=== PATIENT | female | born 2005 | race Caucasian/White ===

== ENCOUNTER 2024-07-03 13:41 | Outpatient (CLI) | payer BC, SELFPAY ==
[2024-07-03 14:49] LABS: HCG,Quantitative 390 mIU/ml (0-5.42)
[2024-07-04 12:21] LABS: Progesterone 11.8 ng/mL (.)
== END 2024-07-03 23:59 | disposition home or self-care (01) ==
LOC: LAB 13:48
PROVIDERS: PCP Nurse Practitioner Family; Visit Provider Obstetrics & Gynecology
DX: Z32.01 Encounter for pregnancy test, result positive (principal)
CPT/HCPCS: 36415; 84144; 84702

== ENCOUNTER 2024-08-01 11:11 | Outpatient (CLI) | payer BC, SELFPAY ==
[2024-08-01 11:31] LABS: Basophils % 0.4 % (0.1-2.0); Eosinophils # 0.1 K/mm3 (0.0-0.4); Eosinophils % 0.6 % (0.1-12.0); Hematocrit 36.9 % (37.0-47.0); Hemoglobin 12.5 g/dL (12.2-16.2); Lymphocytes # 1.2 K/mm3 (0.7-4.5); Lymphocytes % 13.4 % (10-50); Mean Corpuscular HGB Conc 33.9 g/dL (31.8-35.4); Mean Corpuscular Hemoglobin 29.8 pg (27.0-31.2); Mean Corpuscular Volume 88.1 fl (81-99); Mean Platelet Volume 9.9 fl (7.4-10.4); Monocytes # 0.5 K/mm3 (0.1-1.0); Monocytes % 5.7 % (1.7-9.3); Neutrophils # 7.2 K/mm3 (1.8-7.8); Neutrophils % 79.8 % (37.0-80.0); Platelet Count 336 K/mm3 (142-424); Red Blood Count 4.19 M/mm3 (4.20-5.40); Red Cell Distribution Width 13.2 % (11.5-17.5)
[2024-08-01 12:41] LABS: HIV Combo NEGATIVE (Negative)
[2024-08-01 12:49] LABS: Hepatitis C Ab Qual. W/ RFX NEGATIVE (Negative)
[2024-08-02 06:34] LABS: Hepatitis B Surface Antigen Negative (Negative); Rubella Antibodies, IgG 1.82 index (Immune >0.99)
[2024-08-02 09:06] LABS: RPR W/RFX Titers Nonreactive (Nonreactive)
[2024-08-03 06:10] LABS: Neisseria gonorrhoeae, NAA Negative (Negative)
== END 2024-08-01 23:59 | disposition home or self-care (01) ==
LOC: LAB 11:11
PROVIDERS: PCP Nurse Practitioner Family; Visit Provider Obstetrics & Gynecology
DX: Z34.01 Encounter for supervision of normal first pregnancy, first trimester (principal); Z3A.08 8 weeks gestation of pregnancy
CPT/HCPCS: 36415; 85025; 86592; 86762; 86803; 86850; 87340; 87389; 87491; 87591

== ENCOUNTER 2024-08-15 12:43 | Outpatient (CLI) | payer BC, SELFPAY ==
--- NOTE | 2024-08-15 13:00 | US_ITS ---
PROCEDURE: US OB <= 14 WEEKS FETUS CLINICAL INDICATION: Confirm Dates and Viability COMPARISON: No exams were available for comparison FINDINGS: Transvaginal sonographic images of the pelvis were obtained. From her last menstrual period she is 10weeks 3days. An intrauterine gestational sac is present with a pole with a crown-rump length of 3.46cm This correlates to a gestational age of 10weeks 3days. heart tones are present with an FHR of 161bpm. Yolk sac is noted. The yolk sac measures 5.4mm. The right ovary is seen and appears normal. There appears to be a small corpus luteum in the right ovary. The left ovary is seen and appears normal. There is no fluid in the cul-de-sac. IMPRESSION: 1. Viable embryo within the uterine cavity. heart rate activity is seen. 2. The embryo measures 10 weeks and 3 days and this correlates with her last menstrual period. Her NELLI will remain 03/10/2025. 3. Both ovaries are seen and appear normal. There is a corpus luteum in the right ovary. 4. No fluid in the cul-de-sac. Dictated by: Paul Gao MD 08/15/2024 14:43 Paul Gao MD in OV 08/15/2024 14:43
== END 2024-08-15 23:59 | disposition home or self-care (01) ==
LOC: RAD 12:43
PROVIDERS: PCP Nurse Practitioner Family; Visit Provider Obstetrics & Gynecology
DX: Z36.87 Encounter for antenatal screening for uncertain dates (principal); O36.80X0 Pregnancy with inconclusive fetal viability, not applicable or unspecified; Z3A.10 10 weeks gestation of pregnancy
CPT/HCPCS: 76801

== ENCOUNTER 2024-10-24 14:01 | Outpatient (CLI) | payer BC, SELFPAY ==
--- OUTSIDE RECORDS SUMMARY | 2024-10-24 14:09 | XMS_ITS | Data Portability ---
Author Organization [facility] ClinREENA dobbs FLOR[place] CLOSED Address [address] [facility] [address] [place] [address] Care Team Providers Care Public Transit Bus Driver Name Role Phone SHAHZAD STACY Primary Care Provider Assessment No assessment recorded. Plan of Treatment Reminders Order Date Submit Date Provider Last Modified By Organization Details Last Modified Time Details Appointments ANNUAL STAPLE FIBER WASHER 2024 02:15P M EMEKA GARCIA DO Not available Not available Not available Lab None recorded. Referral None recorded. Procedures None recorded. Surgeries laparosco py, diagnosti c (SURG) 2023 [email or web address] [facility] Professional Charges, [address] [facility], [facility] [address], [place], [address], 08/27/2023 09:39:09 Imaging US, transvagi nal 2023 024 [facility] Radiology Pulmonary, [address] [place], [address], 03/24/2024 15:23:49 Medication Orders Larissia 0.1 mg-20 mcg tablet 2023 024 [email or web address] [facility] [address], [address] [place], [address], 12/22/2023 09:30:58 Larissia 0.1 mg-20 mcg tablet 2023 024 [facility] [address], [address] [place], [address], 08/13/2023 15:20:18 Patient TargetsNo targets recorded. Patient Instructions Encounter Date Encounter Id Patient Instructions Last Modified By Organization Details Last Modified Time 03/24/2024 [id number] pain management sneace Not available 03/24/2024 15:29:53 Reason for Referral None Reported. Results Created Date Observation Date Name Description Value Unit Range Abnormal Flag Note LastModifiedBy Organization Detail LastModifiedTime 06/10/19 24 06/10/2023 GENER AL HEALT H PANEL glucose 84 mg/dL 74-100 normal Not Available [facility] [address] [place] [address], [address], 06/10/2023 14:04:24 06/10/19 24 06/10/2023 GENER AL HEALT H PANEL blood urea nitrogen 6 mg/dL 6-20 normal Not Available [facility] [address] [place] [address], [address], 06/10/2023 14:04:24 06/10/19 24 06/10/2023 GENER AL HEALT H PANEL creatinine 0.92 mg/dL 0.50-0 .95 normal Not Available [facility] [address] [place] [address], [address], 06/10/2023 14:04:24 06/10/19 24 06/10/2023 GENER AL HEALT H PANEL BUN/creatini ne ratio 7 (calc ) 10-20 low Not Available [facility] [address] [place] [address], [address], 06/10/2023 14:04:24 06/10/19 24 06/10/2023 GENER AL HEALT H PANEL sodium 140 mmol/ L 136-14 5 normal Not Available [facility] [address] [place] [address], [address], 06/10/2023 14:04:24 06/10/19 24 06/10/2023 GENER AL HEALT H PANEL potassium 3.9 mmol/ L 3.4-5. 0 normal Not Available [facility] [address] [place] [address], [address], 06/10/2023 14:04:24 06/10/19 24 06/10/2023 GENER AL HEALT H PANEL chloride 107 mmol/ L 98-107 normal Not Available [facility] [address] [place] [address], [address], 06/10/2023 14:04:24 06/10/19 24 06/10/2023 GENER AL HEALT H PANEL carbon dioxide 21 mmol/ L 22-31 low Not Available [facility] [address] [place] [address], [address], 06/10/2023 14:04:24 06/10/19 24 06/10/2023 GENER AL HEALT H PANEL anion gap 12 (calc ) 7-25 normal Not Available [facility] [address] [place] [address], [address], 06/10/2023 14:04:24 06/10/19 24 06/10/2023 GENER AL HEALT H PANEL calcium 9.3 mg/dL 8.6-10 .2 normal Not Available [facility] [address] [place] [address], [address], 06/10/2023 14:04:24 06/10/19 24 06/10/2023 GENER AL HEALT H PANEL total protein 8.0 g/dL 6.4-8. 3 normal Not Available [facility] [address] [place] [address], [address], 06/10/2023 14:04:24 06/10/19 24 06/10/2023 GENER AL HEALT H PANEL albumin 4.5 g/dL 3.5-5. 2 normal Not Available [facility] [address] [place] [address], [address], 06/10/2023 14:04:24 06/10/19 24 06/10/2023 GENER AL HEALT H PANEL globulin 3.5 1.5-4. 5 normal Not Available [facility] [address] [place] [address], [address], 06/10/2023 14:04:24 06/10/19 24 06/10/2023 GENER AL HEALT H PANEL albumin/glob ulin ratio 1.3 (calc ) 1.1-2. 5 normal Not Available [facility] [address] [place] [address], [address], 06/10/2023 14:04:24 06/10/19 24 06/10/2023 GENER AL HEALT H PANEL bilirubin, total 0.4 mg/dL 0.1-1. 2 normal Not Available [facility] [address] [place] [address], [address], 06/10/2023 14:04:24 06/10/19 24 06/10/2023 GENER AL HEALT H PANEL alkaline phosphatase 44 U/L 30-121 normal Not Available [facility] [address] [place] [address], [address], 06/10/2023 14:04:24 06/10/19 24 06/10/2023 GENER AL HEALT H PANEL AST 23 U/L 0-32 normal Not Available [facility] [address] [place] [address], [address], 06/10/2023 14:04:24 06/10/19 24 06/10/2023 GENER AL HEALT H PANEL ALT 15 U/L 0-33 normal Not Available [facility] [address] [place] [address], [address], 06/10/2023 14:04:24 06/10/19 24 06/10/2023 GENER AL HEALT H PANEL GFR 92 >= 60 normal NOT E New calcu latio n for GFR (CKD- EPI 2020) is formu lated witho ut race adjus tment facto rs at the recom menda tion of the Natio nal Kidne y Found ation and Ammau Almazane ty of Nephr ology . This calcu latio n has not been valid ated in pregn ant women . For pedia lorena patie nts refer to https ://shena alonso.regla garcia.o riddhi/pr princess suazo s/KDO QI/gf r_cal culat orPed Not Available [facility] [address] [place] [address], [address], 06/10/2023 14:04:24 06/10/19 24 06/10/2023 GENER AL HEALT H PANEL white blood cells 6.0 10*3/ uL 3.8-10 .8 normal Not Available [facility] [address] [place] [address], [address], 06/10/2023 14:04:24 06/10/19 24 06/10/2023 GENER AL HEALT H PANEL red blood cells 4.42 10*6/ uL 3.80-5 .20 normal Not Available [facility] [address] [place] [address], [address], 06/10/2023 14:04:24 06/10/19 24 06/10/2023 GENER AL HEALT H PANEL hemoglobin 13.7 g/dL 12.0-1 6.0 normal Not Available [facility] [address] [place] [address], [address], 06/10/2023 14:04:24 06/10/19 24 06/10/2023 GENER AL HEALT H PANEL hematocrit 39.9 % 35.0-4 7.0 normal Not Available [facility] [address] [place] [address], [address], 06/10/2023 14:04:24 06/10/19 24 06/10/2023 GENER AL HEALT H PANEL MCV 90 fL 80-100 normal Not Available [facility] [address] [place] [address], [address], 06/10/2023 14:04:24 06/10/19 24 06/10/2023 GENER AL HEALT H PANEL MCH 31 pg 26-35 normal Not Available [facility] [address] [place] [address], [address], 06/10/2023 14:04:24 06/10/19 24 06/10/2023 GENER AL HEALT H PANEL MCHC 34 g/dL 32-36 normal Not Available [facility] [address] [place] [address], [address], 06/10/2023 14:04:24 06/10/19 24 06/10/2023 GENER AL HEALT H PANEL RDW 13.2 % 11.0-1 5.0 normal Not Available [facility] [address] [place] [address], [address], 06/10/2023 14:04:24 06/10/19 24 06/10/2023 GENER AL HEALT H PANEL MPV 8.4 fL 6.2-10 .5 normal Not Available [facility] [address] [place] [address], [address], 06/10/2023 14:04:24 06/10/19 24 06/10/2023 GENER AL HEALT H PANEL platelet count 324 10*3/ uL 150-40 0 normal Not Available [facility] [address] [place] [address], [address], 06/10/2023 14:04:24 06/10/19 24 06/10/2023 GENER AL HEALT H PANEL neutrophil,a bsolute 3.7 10*3/ uL 1.6-8. 4 normal Not Available [facility] [address] [place] [address], [address], 06/10/2023 14:04:24 06/10/19 24 06/10/2023 GENER AL HEALT H PANEL lymphocyte,a bsolute 1.6 10*3/ uL 0.4-5. 1 normal Not Available [facility] [address] [place] [address], [address], 06/10/2023 14:04:24 06/10/19 24 06/10/2023 GENER AL HEALT H PANEL monocyte,abs olute 0.5 10*3/ uL 0.0-1. 2 normal Not Available [facility] [address] [place] [address], [address], 06/10/2023 14:04:24 06/10/19 24 06/10/2023 GENER AL HEALT H PANEL eosinophil,a bsolute 0.1 10*3/ uL 0.0-0. 8 normal Not Available [facility] [address] [place] [address], [address], 06/10/2023 14:04:24 06/10/19 24 06/10/2023 GENER AL HEALT H PANEL basophil,abs olute 0.1 10*3/ uL 0.0-0. 3 normal Not Available [facility] [address] [place] [address], [address], 06/10/2023 14:04:24 06/10/19 24 06/10/2023 GENER AL HEALT H PANEL % neutrophils 62.4 % 42.0-7 8.0 normal Not Available [facility] [address] [place] [address], [address], 06/10/2023 14:04:24 06/10/19 24 06/10/2023 GENER AL HEALT H PANEL % lymphocytes 27.1 % 11.0-4 7.0 normal Not Available [facility] [address] [place] [address], [address], 06/10/2023 14:04:24 06/10/19 24 06/10/2023 GENER AL HEALT H PANEL % monocytes 7.7 % 0.0-11 .0 normal Not Available [facility] [address] [place] [address], [address], 06/10/2023 14:04:24 06/10/19 24 06/10/2023 GENER AL HEALT H PANEL % eosinophils 1.9 % 0.0-7. 0 normal Not Available [facility] [address] [place] [address], [address], 06/10/2023 14:04:24 06/10/19 24 06/10/2023 GENER AL HEALT H PANEL % basophils 0.9 % 0.0-3. 0 normal Not Available [facility] [address] [place] [address], [address], 06/10/2023 14:04:24 06/10/19 24 06/10/2023 GENER AL HEALT H PANEL nucleated red cells 0.1 % 0.0-0. 9 normal Not Available [facility] [address] [place] [address], [address], 06/10/2023 14:04:24 06/10/19 24 06/10/2023 GENER AL HEALT H PANEL nucleated RBCs, absolute 0.00 10*3/ uL not estab. normal Not Available [facility] [address] [place] [address], [address], 06/10/2023 14:04:24 06/10/19 24 06/10/2023 GENER AL HEALT H PANEL TSH 8.470 u[IU] /mL 0.270- 4.200 high Not Available [facility] [address] [place] [address], [address], 06/10/2023 14:04:24 06/10/19 24 06/10/2023 FOLLI DORIAN STIM. HORMO NE follicle stim. hormone 5.7 m[IU] /mL 1.7-13 4.8 normal FSH EXPEC LUCIA VALUE S FEMAL ES: FOLLI CULAR PHASE : 3.5 - 12.5 MIU/M L OVULA TION PHASE : 4.7 - 21.5 MIU/M L LUTEA L PHASE : 1.7 - 7.7 MIU/M L POST MENOP AUSE: 25.8 - 134.8 MIU/M L . Not Available [facility] [address] [place] [address], [address], 06/10/2023 14:04:18 06/10/19 24 06/10/2023 LUTEN IZING HORMO NE lutenizing hormone 5.3 m[IU] /mL 1.0-95 .6 normal LH EXPEC LUCIA VALUE S WOMEN : FOLLI CULAR PHASE 2.4-1 2.6 mIU/m L OVULA TION PHASE 14.0- 95.6 mIU/m L LUTEA L PHASE 1.0-1 1.4 mIU/m L POSTM ENOPA USE 7.7-5 8.5 mIU/m L . Not Available [facility] [address] [place], [address], 06/10/2023 14:04:20 06/10/19 24 06/10/2023 PROGE STERO NE, SERUM /PLAS MA progesterone , serum/plasma 0.34 NG/mL 0.00-2 3.90 normal Refer ence range is based on non-p regna nt women . PROGE STERO NE EXPEC LUCIA VALUE S WOMEN : FOLLI CULAR PHASE 0.06 - 0.90 ng/mL OVULA TION PHASE 0.12 - 12.0 ng/mL LUTEA L PHASE 1.83 - 23.9 ng/mL POSTM ENOPA USE 0.00 - 0.13 ng/mL 1st Trime ster 11.0 - 44.3 ng/mL 2nd Trime ster 25.4 - 83.3 ng/mL 3rd Trime ster 58.7 - 214.0 ng/mL . Not Available [facility] [address] [place], [address], 06/10/2023 14:04:22 06/10/19 24 06/10/2023 DHEA SULFA TE DHEA sulfate 349.0 ug/dL 65.1-3 68.0 normal Not Available [facility] [address] [place], [address], 06/10/2023 14:04:26 06/10/19 24 06/10/2023 ESTRA DIOL estradiol 35.1 pg/mL 0.0-39 8.0 normal Refer ence range is based on non-p regna nt women . NOTE: Due to the risk of cross -reac tivit y, the Jett Estra diol assay used by our labor atory shoul d not be order ed when monit oring estra diol level s in patie nts being treat ed with Fulve stran t. An alter audrey metho d such as LC/MS , which is not expec lucia to show cross -reac tivit y to Fulve stran t, shoul d be used to measu re estra diol trino ntrat ions. Stero id drugs may inter fere with this test. ESTRA DIOL EXPEC LUCIA VALUE S HEALT HY WOMEN : FOLLI CULAR PHASE 12.4 - 233 pg/mL OVULA TION PHASE 41.0 - 398 pg/mL LUTEA L PHASE 22.3 - 341 pg/mL POSTM ENOPA USE < 5.0 - 138 pg/mL HEALT HY PREGN ANT WOMEN : 1st TRIME STER 154 - 3243 pg/mL 2nd TRIME STER 1561 - 21,28 0 pg/mL 3rd TRIME STER 8525 - > 30,00 0 pg/mL . Not Available [facility] [address] [place], [address], 06/10/2023 14:04:28 06/10/19 24 06/14/2023 URINE CULTU RE urine culture ISOLA TE #1 COLON Y COUNT : 10,00 0 - 100,0 00 CFU/M L Minut e alpha colon y; proba ble Lacto bacil nataly. Not Available [facility] [address] [place], [address], 06/14/2023 14:48:21 06/10/19 24 06/10/2023 urina lysis panel , auto Unknown Analyte 250 Jamaal/ul Not Available [address], [place], [address], 06/10/2023 11:49:44 06/10/19 24 06/10/2023 urina lysis panel , auto Unknown Analyte Negati ve Not Available [address], [place], [address], 06/10/2023 11:49:44 06/10/19 24 06/10/2023 urina lysis panel , auto Unknown Analyte Normal Not Available [address], [place], [address], 06/10/2023 11:49:44 06/10/19 24 06/10/2023 urina lysis panel , auto Unknown Analyte Negati ve Not Available [address], [place], [address], 06/10/2023 11:49:44 06/10/19 24 06/10/2023 urina lysis panel , auto Unknown Analyte Normal Not Available [address], [place], [address], 06/10/2023 11:49:44 06/10/19 24 06/10/2023 urina lysis panel , auto Unknown Analyte Negati ve Not Available [address], [place], [address], 06/10/2023 11:49:44 06/10/19 24 06/10/2023 urina lysis panel , auto Unknown Analyte Negati ve Not Available [address], [place], [address], 06/10/2023 11:49:44 06/10/19 24 06/10/2023 urina lysis panel , auto Unknown Analyte Negati ve Not Available [address], [place], [address], 06/10/2023 11:49:44 06/10/19 24 06/10/2023 urina lysis panel , auto Unknown Analyte Clean Catch Not Available [address], [place], [address], 06/10/2023 11:49:44 06/10/19 24 06/10/2023 urina lysis panel , auto Unknown Analyte Yellow Not Available [address], [place], [address], 06/10/2023 11:49:44 06/10/19 24 06/10/2023 urina lysis panel , auto Unknown Analyte Slight ly Hazy Not Available [address], [place], [address], 06/10/2023 11:49:44 06/10/19 24 06/10/2023 urina lysis panel , auto Unknown Analyte 7.0 Not Available [address], [place], [address], 06/10/2023 11:49:44 06/10/19 24 06/10/2023 urina lysis panel , auto Unknown Analyte 1.005 Not Available [address], [place], [address], 06/10/2023 11:49:44 07/30/19 24 07/30/2023 SURGI KHUSHBU surgical SEE BELOW normal Depar tment of Patho logy Surgi khushbu Patho logy Repor t NAME: LAURYN SAHU Y PATH. :[id number] Copy to: Diagn osis: A) Perit oneum cul-d e-sac poste rior: No speci fic patho logic alter ation . B) Perit oneum cul-d e-sac poste rior: Endom etrio sis. SOURC E OF SPECI MEN: PERIT LEWIS BIOPS Y, CUL-D E-SAC POSTE RIOR PERIT LEWIS BIOPS Y, CUL-D E-SAC POSTE RIOR CLINI KHUSHBU INFOR MATIO N: PELVI C PAIN / DYSME NORRH EA / ALEJANDRO RHAGI A Gross Descr iptio n: A) Recei beti in forma helga label ed with the patie nt's name and desig nated jeannie toneu m cul-d e-sac poste rior is a singl e fragm ent of pale patrick tissu e measu ring 0.3 cm. Entir douglas submi tted in one casse tte label ed A1. B) Recei beti in forma helga label ed with the patie nt's name and desig nated jeannie toneu m cul-d e-sac poste rior is a singl e fragm ent of pale patrick tissu e measu ring 0.9 cm. Entir douglas submi tted in one casse tte label ed B1. MT 07/29 03:45 PM Micro scopi c Descr iptio n: A micro scopi c exami natio n has been perfo rmed and the resul t(s) are as noted above . Origi nal and deepe r secti ons of speci men A are studi ed. Ho HERNANDEZ MD Samantha d Out Date: 08/01 15:18 Page 1 of 1 Not Available [facility] [address] [facility], [place], [address], 08/02/2023 15:18:24 06/28/19 24 06/28/2023 US, trans vagin al [facility] [address] [place] [address] Patisushila t Name: KASSIE SAHU Patisushila t : 004 Patien t Orderi ng Provid er: AMADOR LÓPEZ GTON EXAM DATE: 2023 EXAM: US PELVIS STAPLE FIBER WASHER TRANSV AGINAL CLINIC AL INFORM ATION: Right pelvic pain. TECHNI QUE: Multip le sonogr aphic images of the pelvis were obtain ed throug h transv aginal route. COMPAR ANDERS: None. FINDIN GS: UTERUS : Size = 6.8 x 3.3 x 5.2 cm. EMS thickn ess = 3 mm. Anteve rted, antefl exed, normal in size. No myomet rial abnorm ality seen. RIGHT ADNEXA : Ovary size = 2.2 x 1.8 x 2 cm. Normal in size and appear ance. No adnexa l mass. LEFT ADNEXA : Ovary size = 2.2 x 1.1 x 1.5 cm. Normal in size and appear ance. No adnexa l mass. CUL-DE -SAC: No fluid or mass IMPRES ONI: Normal sonogr am of the pelvis . No obliqu e mass or acute pelvic abnorm ality is seen. Interp reted By: Jeremy Owens MD Electr onical ly Signed By: Jeremy Owens MD on 10:24 AM [facility] [address] [facility] [address], [place], [address], 07/01/2023 10:43:39 03/24/20 24 03/24/2024 US, trans vagin al [facility] [address] [facility] [address] [place] [address] Patien t Name: KASSIE SAHU Patien t : 004 Patien t Orderi ng Provid er: EMEKA GARCIA EXAM DATE: 2023 EXAM: US PELVIS STAPLE FIBER WASHER TRANSV AGINAL CLINIC AL INFORM ATION: Pain TECHNI QUE: Multip le sonogr aphic images of the pelvis were obtain ed throug h transv aginal route. COMPAR ANDERS: 024 FINDIN GS: UTERUS : Size = 7.6 x 3.3 x 4.9 cm. EMS thickn ess = 7.4 mm. Anteve rted, antefl exed, normal in size. No myomet rial abnorm ality seen. RIGHT ADNEXA : Ovary size = 3.4 x 2.1 x 2.4 cm. Normal in size and appear ance. No adnexa l mass. 2 cm sonolu cency. LEFT ADNEXA : Ovary size = 2.3 x 1.8 x 1.7 cm. Normal in size and appear ance. No adnexa l mass. Subcen timete r follic le CUL-DE -SAC: Small amount of free fluid IMPRES ONI: 1. Right ovaria n cyst with benign ultras ound featur es 2. Small amount of free fluid Interp reted By: Rhett Aguirre MD Electr onical ly Signed By: Rhett Aguirre MD on 2023 3:18 PM sneace [facility] [address] [facility] [address], [place], [address], 03/24/2024 16:13:54 Result Notes None recorded. Problems Name Problem SNOMED Code Status Onset Date Resolution Date Notes Provider Name and Address Organization Details Recorded Time Hypertrop hy of tonsils AND adenoids 75185078 Active 2015 From Automated Load;Prov ider: Christopher Villa Ray;Statu s: Active Not Available [facility] 6 04:39:59 Disorder of thyroid gland 96317222 Active 2015 From Automated Load;Prov ider: Christopher Villa Ray;Statu s: Active Not Available [facility] 6 04:39:59 Chronic tonsillit is 27603620 Active 2015 From Automated Load;Prov ider: Christopher Villa Ray;Statu s: Active Not Available [facility] 6 04:40:03 Pain of right hip joint 02634043918 9102 Active 2019 MELANIE VINSON, PT [address] [place], [address] , [facility] 0 18:56:48 Pain of left hip joint 57299592366 9100 Active 2019 MELANIE VINSON, PT [address] [place], [address] , [facility] 0 18:56:50 Muscle weakness 25991347 Active 2019 MELANIE VINSON, PT [address] [place], [address] , [facility] 0 18:56:53 Abnormal gait 61247679 Active 2019 MLEANIE VINSON, PT [address] [place], [address] , [facility] 0 18:56:54 Problem Notes None recorded. Procedures Surgical History Date Name Laterality Status Provider Name and Address Organization Details Recorded Time 4 Salpingectomy, Laparoscopy completed EMEKA GARCIA DO [address] [place], [address], [facility] 07/30/2023 11:03:52 3 Capsule Endoscopy completed Cordelia Mirza [facility] 05/06/2023 08:18:54 1 PT Evaluation - Moderate Complexity completed VERO CABRERA, PT [address] [place], [address], [facility] 12/27/2020 09:05:08 1 Injection Joint/Bursa, Major completed FREDDIE CAMPBELL MD [address] [place], [address], [facility] 09/16/2020 12:52:18 1 PT Therapeutic Exercise completed MELANIE VINSON, PT [address] [place], [address], [facility] 06/07/2020 15:43:43 1 PT Therapeutic Exercise completed MELANIE VINSON, PT [address] [place], [address], [facility] 05/24/2020 14:34:55 0 PT Therapeutic Exercise completed MELANIE VINSON, PT [address] [place], [address], [facility] 04/26/2020 13:10:15 0 PT Evaluation - Low Complexity completed MELANIE VINSON, PT [address] [place], [address], [facility] 04/11/2020 18:49:34 0 PT Therapeutic Exercise completed MELANIE VINSON, PT [address] [place], [address], [facility] 04/11/2020 18:49:54 0 OT Therapeutic Exercise completed VERO WALDROP, OTR/L, CHT [address] [place], [address], [facility] 09/05/2019 14:43:06 0 OT Manual Therapy completed VERO WALDROP, OTR/L, CHT [address] [place], [address], [facility] 09/05/2019 13:59:00 0 OT Therapeutic Exercise completed VERO WALDROP, OTR/L, CHT [address] [place], [address], [facility] 08/25/2019 12:34:06 0 OT Therapeutic Exercise completed VERO WALDROP, OTR/L, CHT [address] [place], [address], [facility] 07/27/2019 12:05:11 0 OT Manual Therapy completed VERO WALDROP, OTR/L, CHT [address] [place], [address], [facility] 07/27/2019 11:27:54 0 PT Paraffin Bath completed VERO WALDROP, OTR/L, CHT [address] [place], [address], [facility] 07/27/2019 11:27:54 0 OT Therapeutic Exercise completed VERO WALDROP, OTR/L, CHT [address] [place], [address], [facility] 07/20/2019 11:59:41 0 OT Manual Therapy completed VERO WALDROP, OTR/L, CHT [address] [place], [address], [facility] 07/20/2019 11:16:00 0 PT Paraffin Bath completed VERO WALDROP, OTR/L, CHT [address] [place], [address], [facility] 07/20/2019 11:16:00 0 OT Therapeutic Exercise completed VERO WALDROP, OTR/L, CHT [address] [place], [address], [facility] 07/13/2019 11:59:49 0 OT Manual Therapy completed VERO WALDROP, OTR/L, CHT [address] [place], [address], [facility] 07/13/2019 11:05:15 0 PT Paraffin Bath completed VERO WALDROP, OTR/L, CHT [address] [place], [address], [facility] 07/13/2019 11:05:15 0 OT Therapeutic Exercise completed VERO WALDROP, OTR/L, CHT [address] [place], [address], [facility] 07/07/2019 09:38:11 0 OT Manual Therapy completed VERO WALDROP, OTR/L, CHT [address] [place], [address], [facility] 07/07/2019 08:53:52 0 PT Paraffin Bath completed VERO WALDROP, OTR/L, CHT [address] [place], [address], [facility] 07/07/2019 08:53:52 0 OT Evaluation - Moderate complexity completed VERO WALDROP, OTR/L, CHT [address] [place], [address], [facility] 06/30/2019 16:19:46 0 OT Therapeutic Exercise completed VERO WALDROP, OTR/L, CHT [address] [place], [address], [facility] 06/30/2019 16:26:13 0 OT Manual Therapy completed VERO WALDROP, OTR/L, CHT [address] [place], [address], [facility] 06/30/2019 16:26:12 0 PT Paraffin Bath completed VERO WALDROP, OTR/L, CHT [address] [place], [address], [facility] 06/30/2019 16:26:06 0 Orthotic, WHO, Static Custom completed VERO WALDROP, OTR/L, CHT [address] [place], [address], [facility] 06/27/2019 13:52:42 0 Orthotic, EWHO, Static Custom completed VERO WALDROP OTR/L, CHT [address] [place], [address], [facility] 06/20/2019 16:14:00 0 Op Note completed RIVAS BREAUX MD [address] [place], [address], [facility] 06/12/2019 12:00:49 8 Spirometry completed [facility] 01/24/2018 10:59:57 8 Allergy Testing completed [facility] 01/24/2018 10:59:50 8 Cerumen removal - Instruments, [facility] 10:35:08 Imaging Results None recorded. Procedure Notes None recorded. Medical Equipment None Reported. Allergies Allergen ID Allergen Name Allergen Category Reaction Reaction Severity Criticality Documentation Date Start Date Code Code System Note Provider Name and Address Organization Details Recorded Time 620441 Omnicef medicatio n Not available Not available Not available 04/03/20162015 11480 RxNorm Comme nt: Nadir ed By: Wade gordillo Date: 2015 11:04 :02 AM; Not Available [facility] 6 10:11:41 Medications Name Sig Start Date Stop Date Status Note LastModified by Organization Details LastModified Time norgestim ate 0.25 mg-ethiny l estradiol 0.035 mg tablet 07/17 completed Not Available Not Available Not Available hydrocodo ne 5 mg-acetam inophen 325 mg tablet TAKE 1 TAB PO Q 4-6 HRS PRN UNCONTRO LLED PAIN 06/20 completed Not Available Not Available Not Available meloxicam 15 mg tablet Take 1 tablet every day by oral route for 14 days. 07/17 completed Not Available Not Available Not Available ondansetr on HCl 4 mg tablet Take 1 tablet every 8 hours by oral route as needed. 07/17 completed Not Available Not Available Not Available famotidin e 40 mg tablet Take 1 tablet every day by oral route at bedtime for 30 days. 2021 active Not Available Not Available Not Avai lable pseudoeph edrine-gu aifenesin ER 60 mg-600 mg tablet,ex tend release 12hr 1po QD x 7-10 days then PRN congesti on 06/06 completed Not Available Not Available Not Available meloxicam 7.5 mg tablet TAKE 1 TAB PO QD WITH FOOD REGARDLE SS OF PAIL LEVEL FOR 1 WEEK, THEN TAKE ONLY PRN FOR PAIN RELIEF THEREAFT ER 06/27 completed Not Available Not Available Not Available levothyro xine 88 mcg tablet active Not Available Not Available Not Available hyoscyami ne sulfate 0.125 mg tablet Take 1 tablet every 4 hours by oral route as needed for 30 days. 2022 active Not Available Not Available Not Avai lable Prozac 20 mg capsule Take 1 capsule every day by oral route. active Not Available Not Available No t Available Neurontin 100 mg capsule TAKE 1 CAPSULE PO QHS FOR 1 WEEK 06/20 completed patient mom states they did not receive this medicati on Not Available Not Available Not Available triamcino lone acetonide 55 mcg nasal spray aerosol 1 spray each nostril BID 06/06 completed Not Available Not Available Not Available diclofena c sodium 50 mg tablet,de layed release Take 1 tablet twice a day by oral route for 21 days. 07/17 completed Not Available Not Available Not Available Low-Ogest rel (28) 0.3 mg-30 mcg tablet 07/17 completed Not Available Not Available Not Available dicyclomi ne 10 mg capsule Take 1 capsule 4 times a day by oral route as needed for 30 days. 2022 active Not Available Not Available Not Avai lable naproxen 500 mg tablet Take 1 tablet twice a day by oral route with meals. 07/17 completed Not Available Not Available Not Available Ventolin HFA 90 mcg/actua tion aerosol inhaler PRN active Not Available Not Available Not Available oxycodone 5 mg tablet Take 1 tablet every 4 hours by oral route as needed. 08/12 completed Not Available Not Available Not Available hydroxyzi ne HCl 03/01 completed Not Available Not Available Not Available Synthroid 07/17 completed Not Available Not Available Not Available Larissia 0.1 mg-20 mcg tablet take 1 tab po daily skipping last 3 inactive pills 2023 active Not Available Not Available Not Avai lable Afluria Qd 2019- (36 mos up)(PF)60 mcg (15 mcg x4)/0.5 mL IM syringe ADM 0.5ML IM UTD 07/17 completed Not Available Not Available Not Available Sutab 1.479-0.1 88-0.225 gram tablet Take as directed Run followin g coupon COB with patient insuranc e for $40 OOP. No PA required if run this way regardle ss of coverage status. Bin: [id number] PCN: CN Group: [id number] ID: [id number]. 03/24 completed Not Available Not Available Not Available Vitals Date Recorded Body height Body mass index (BMI) [Percentile] Per age and sex Body mass index (BMI) Body weight Systolic blood pressure Diastolic blood pressure Provider Name and Address Organization Details Last Updated DateTime 4 165.1 cm 75 % 24.4 kg/m2 15728.2 9 g 116 mm[Hg] 70 mm[Hg] [facility] 4 14:54:49 Date Recorded Body height Body mass index (BMI) [Percentile] Per age and sex Body mass index (BMI) Body weight Systolic blood pressure Diastolic blood pressure Provider Name and Address Organization Details Last Updated DateTime 4 165.1 cm 74 % 24.3 kg/m2 90796.4 9 g 112 mm[Hg] 68 mm[Hg] [facility] 4 15:05:51 Date Recorded Body height Body mass index (BMI) [Percentile] Per age and sex Body mass index (BMI) Body weight Systolic blood pressure Diastolic blood pressure Provider Name and Address Organization Details Last Updated DateTime 4 165.1 cm 85 % 26.5 kg/m2 42317.8 9 g 112 mm[Hg] 64 mm[Hg] Anh Ratliff [facility] 4 09:02:37 Date Recorded Body height Body mass index (BMI) [Percentile] Per age and sex Body mass index (BMI) Body weight Systolic blood pressure Diastolic blood pressure Provider Name and Address Organization Details Last Updated DateTime 4 165.1 cm 85 % 26.7 kg/m2 88624.5 8 g 110 mm[Hg] 64 mm[Hg] Clare Hernandez [facility] 4 15:07:59 Social History Question Answer Notes LastModified by Organizat ion Details LastModified Time Tobacco Smoking Status Never Smoker FREDDIE CAMPBELL MD [address] [place] [address], [address], [facility] 02/02/2022 11:34:36 Which Of Your Hands Is Dominant? Right Information not available 06/06/2019 Lives With Parents Yes [email or web address] Information not available 01/06/2018 Exposure To Smoke No [email or web address] Information not available 01/06/2018 What Was The Date Of Your Most Recent Tobacco Screening? 02/02/2022 Information not available 02/02/2022 Has Tobacco Cessation Counseling Been Provided? No Information not available 02/02/2022 Sex: Female Functional Status Question Answer Note LastModified by Organization D etails LastModified Time Do you or have you ever used any other forms of tobacco or nicotine? No Information not available 02/02/2022 Are you currently employed? No Information not available 06/09/2019 What is your occupation? student Information not available 06/09/2019 Mental Status None recorded. Family History Relationship Description Onset Age of this Age Resolved Age Notes LastModified by Organization Details LastModified Time Mother Disorder of thyroid gland [email or web address] Not available 01/06 09:55:02 Mother Hypertensive disorder [id number] Not available 01/06 09:55:12 Maternal Grandmother Disorder of thyroid gland [email or web address] Not available 01/06 09:55:02 Paternal Grandmother Disorder of thyroid gland [id number] Not available 01/06 09:55:02 Father Hypertensive disorder [id number] Not available 01/06 09:55:12 Father Diabetes mellitus [email or web address] Not available 01/06 09:55:33 Paternal Grandfather Family history of stroke [id number] Not available 01/06 09:55:25 Medical History Condition Response Gout N Other N Kidney Stones N COPD N Depression Y Pneumonia N Arthritis N Blood Clot N Cancer N Varicosities N Stroke N Hoarseness N Headaches Y Kidney Disease N Heart Problems N Heart Conditions N Migraines N Skin Problems N Rheumatic Fever N Bleeding Disorder N Tuberculosis N Genetic Disorder N AIDS/HIV N Asthma N Hepatitis N Included as Review of Systems N Chicken Pox N Anxiety/Depression N Thyroid Disease Y Hernia N Lung Disease N Glaucoma N Anesthesia Complications N Deep Vein Thrombosis N Blood Thinners N Shortness of Breath N Alcohol Overuse/Alcohol Abuse N High Cholesterol N Liver Disease N Allergies/Hayfever N Thyroid Problems Y Anemia N Immune System Disorder N Heart Attack (SC) N Mental Illness N Neurological Problems N Diabetes N Seizures/Epilepsy N Hyperlipidemia N Sleep Apnea N Hypertension N Osteoporosis N Gynecological History Statement/Question Response Flow Light Date of LMP 12/09/2023 Menses Monthly Y Duration of Flow (days) 4 Current Control Method BCPs LMP Approximate Obstetrics History GPAL:G 0 P 0 0 0 0 Immunizations Vaccine Type Date Status Note Provider Nam e and Address Organization Details Recorded Time Hep B, adult 10/12/2022 completed Shahana Gant [facility] 10/13/2022 09:51:15 Hep B, adult 11/13/2022 completed Shahana Gant [facility] 11/13/2022 13:45:55 Influenza, split virus, quadrivalent, PF 02/04/2023 completed Dania Iraheta [facility] 02/05/2023 13:22:34 Past Encounters Encounter ID Performer Location Encounter Start Date Encounter Closed Date Diagnosis/Indication Diagnosis SNOMED-CT Code Diagnosis ICD10 Code Diagnosis Note [id number] MD JOSHUA RODRÍGUEZ [facility] [address] [place] [address] 01/06/2018 09:26:00 01/12/2018 08:25:46 Allergic rhinitis 73927710 J30.9 -allergy tested 2007 Dr. Carranza = + foods, ? inhalant results Headache 16416438 R51 -frontal, ? sinus etiology Hypertroph y of nasal turbinates 94198457 J34.3 Impacted cerumen 2898000 6 H61.23 -bilateral cerumenect tova 01/06/18 Dysfunctio n of eustachian tube 08108638 H69.[id number] [facility] [address] [place] [address] 01/24/2018 09:15:27 01/24/2018 11:02:31 [id number] [facility] [address] [place] [address] 01/24/2018 11:01:45 01/24/2018 13:17:48 Allergic rhinitis 74915632 J30.9 -allergy tested 2007 Dr. Carranza = + foods, ? 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 No obvious bone abnormalit y. There does appear to be some signal abnormalit y within the TFCC, but difficult to determine if this is a tear. The ulnar foveal attachment appears intact. 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 No obvious bone abnormalit y. There does appear to be some signal abnormalit y within the TFCC, but difficult to determine if this is a tear. The ulnar foveal attachment appears intact. [id number] RIVAS BREAUX MD SURGERY SCHEDULE [address] [place] [address] 06/12/2019 07:23:36 06/12/2019 07:25:33 [id number] EDGAR OSORIO PA-C [facility] [address] [address] 06/20/2019 13:41:15 06/20/2019 16:00:12 Postoperative care 330976263 Z48.89 s/p Right wrist arthroscop ic TFCC debridemen t (DOS: 06/12/2019) Patient presents today with compliants of post op splint loosening. She will go to OT today to be placed in a custom muenster splint that she will wear at all times for the next week. She will return to office next week for recheck. Sara payan on precaution s discussed at length. She will continue to avoid use of right upper extremity. Continue elevation and digital motion as tolerated. Discussed safe use of OTC meds as needed. RTO as scheduled or sooner if needed, advised to call office with any questions/ concerns. 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 No obvious bone abnormalit y. There does appear to be some signal abnormalit y within the TFCC, but difficult to determine if this is a tear. The ulnar foveal attachment appears intact. 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 Counselhelga payan on precaution s discussed at length. Scar massage discussed. She will return to office to see Dr. Breaux in 4 weeks. RTO as scheduled or sooner if needed, advised to call office with any questions/ concerns. 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 No obvious bone abnormalit y. There does appear to be some signal abnormalit y within the TFCC, but difficult to determine if this is a tear. The ulnar foveal attachment appears intact. 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 496022086 S69.81XD TFCC Debridemen t [id number] MARGARET MANZO/L, CHT PHYSICAL THERAPY / [facility]AP[facility] [address] [place] [address] 07/07/2019 08:15:56 07/07/2019 13:21:44 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 363963667 S69.81XD TFCC Debridemen t [id number] MARGARET MANZO/L, CHT PHYSICAL THERAPY / [facility] [address] [place] [address] 07/13/2019 10:50:18 07/13/2019 14:11:09 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 593785591 S69.81XD TFCC Debridemen t [id number] MARGARET MANZO/Ellen, CHT PHYSICAL THERAPY / [facility]APY [facility] [address] [place] [address] 07/20/2019 11:03:13 07/20/2019 13:04:47 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 605454387 S69.81XD TFCC Debridemen t [id number] RIVAS BREAUX MD ORTHOPEDI [address] [place] [address] 07/25/2019 13:18:01 07/25/2019 14:10:42 Postoperative care 827650024 Z48.89 6 weeks s/p Right wrist arthroscop ic TFCC debridemen t (DOS: 06/12/2019) [id number] MARGARET MANZO/L, CHT PHYSICAL THERAPY / [facility] [address] [place] [address] 07/27/2019 11:06:53 07/27/2019 12:54:01 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 220325548 S69.81XD TFCC Debridemen t [id number] MARGARET MANZO/L, CHT PHYSICAL THERAPY / [facility] [address] [place] [address] 08/25/2019 12:19:33 08/28/2019 08:57:02 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 384801621 S69.81XD TFCC Debridemen t [id number] RIVAS BREAUX MD [facility] [address] [place] [address] 09/05/2019 10:17:31 09/05/2019 13:29:33 Postoperative care 290437652 Z48.89 12 weeks s/p Right wrist arthroscop ic TFCC debridemen t (DOS: 06/12/2019) [id number] VERO WALDROP, OTR/L, CHT PHYSICAL THERAPY / [facility]Y [facility] [address] [place] [address] 09/05/2019 13:50:06 09/05/2019 15:26:56 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 097687718 S69.81XD TFCC Debridemen t [id number] MAX WALTON [facility] [address] [place] [address] 03/25/2020 09:37:04 03/25/2020 10:20:09 Pain of hip region 36262496 M25.551 M25.552 Iliotibial band friction syndrome 719833160 M76.30 Trochanter ic bursitis of left hip 1784707162 89433 M70.62 Trochanter ic bursitis of right hip 3869693663 27128 M70.61 [id number] MELANIE VINSON, PT PHYSICAL THERAPY / HAND TH[facility]APY [facility] [address] [place] [address] 04/11/2020 15:28:43 04/11/2020 18:57:17 Pain of right hip joint 8631157848 69051 M25.551 Pain of le ft hip joint 7352596957 52603 M25.552 Muscle weakness 86953507 M62.81 Abnormal gait 28754339 R 26.9 [id number] MELANIE VINSON, PT PHYSICAL THERAPY / HAND [facility]APY [facility] [address] [place] [address] 04/26/2020 10:14:50 04/26/2020 13:33:34 Pain of left hip joint 5579129951 16103 M25.552 Pain of ri ght hip joint 6414970854 43342 M25.551 Muscle weakness 19076591 M62.81 Abnormal gait 95959703 R 26.9 [id number] [facility] [address] [place] [address] 05/24/2020 10:27:19 05/24/2020 12:18:58 Tendinitis of right hip adductor muscle 3494906265 399732 M67.010 [id number] MELANIE VINSON, PT PHYSICAL THERAPY / [facility]APY [facility] [address] [place] [address] 05/24/2020 10:26:41 05/24/2020 15:30:56 Pain of left hip joint 3310222612 32812 M25.552 Pain of ri ght hip joint 3959763888 40234 M25.551 Muscle weakness 09546045 M62.81 Abnormal gait 32958757 R 26.9 [id number] MELANIE VINSON, PT PHYSICAL THERAPY / [facility]APY [facility] [address] [place] [address] 06/07/2020 10:51:12 06/07/2020 16:09:30 Muscle weakness 68672839 M62.81 Pain of le ft hip joint 9120459648 49415 M25.552 Abnormal gait 12064959 R 26.9 Pain of ri ght hip joint 2014110265 46435 M25.875 [id number] [facility]TON [facility] [address] [place] [address] 09/13/2020 09:52:21 09/13/2020 10:29:28 Pain of right hip joint 7365755198 41738 M25.105 [id number] FREDDIE CAMPBELL MD [facility] [address] [place] [address] 09/16/2020 10:25:44 09/16/2020 12:08:51 Tendinitis of right gluteal tendon 2540865917 65722 M76.01 A: Right gluteal tendinitis , snapping ITB, and troch bursitis P: The pathogenes is of trochanter ic bursitis was discussed today. It was discussed that she is not causing damage to the joint, but this can be a very painful and limiting disorder. For symptomati c relief, we can try anti-infla mmatories or potential steroid injection. Physical therapy is the best way to improve strength and prevent recurrence . [id number] FREDDIE CAMPBELL MD [facility] [address] [place] [address] 12/10/2020 10:30:38 12/10/2020 11:39:58 Tendinitis of right gluteal tendon 7328403211 71525 M76.01 A: Right gluteal tendinitis , snapping ITB, and troch bursitis P: The pathogenes is of trochanter ic bursitis was again discussed today. Given her persistent pain about the right lateral hip that localizes to the greater trochanter bursa, will proceed with right hip arthroscop y. Plan will be for right hip arthroscop y and bursectomy and possible gluteal tendon repair. The indication s, alternativ es, risks benefits were discussed. The risks include but are not limited to infection, bleeding, persistent pain, medical complicati on. The patient and her mother are in agreement and all questions were answered. Trochanter ic bursitis of right hip 2871086019 67612 M70.61 [id number] FREDDIE CAMPBELL MD SURGERY SCHEDULE [address] [place] [address] 12/19/2020 06:26:55 12/19/2020 06:27:57 Postoperative care 557647104 Z48.89 [id number] VERO CABRERA, PT PHYSICAL THERAPY / HAND THERAPY [address] [place] [address] 12/27/2020 07:58:00 12/27/2020 09:20:36 Iliotibial band friction syndrome 334251039 M76.31 History of orthopedic surgery 8095695768 9101 Z98.890 Pain of ri ght hip joint 5083297068 05845 M25.551 Stiffness of joint of right hip 3691889863 80317 M25.511 [id number] VERO CABRERA, PILAR PHYSICAL THERAPY / HAND THERAPY [address] [place] [address] 01/03/2021 08:53:00 01/03/2021 14:57:36 Iliotibial band friction syndrome 859316647 M76.31 History of orthopedic surgery 4194927888 9101 Z98.890 Pain of ri ght hip joint 1282093024 44166 M25.551 Stiffness of joint of right hip 8523139389 54222 M25.374 [id number] FREDDIE CAMPBELL MD [facility] [address] [place] [address] 01/07/2021 13:14:56 01/07/2021 14:43:24 Postoperative care 533910314 Z48.89 Assessment : 2 weeks status post right IT band release and greater trochanter bursectomy Plan: Continue with physical therapy focus on core and posterior kinetic chain strengthen ing. Follow-up 4 weeks [id number] VERO CABRERA PT PHYSICAL THERAPY / HAND THERAPY [address] [place] [address] 01/17/2021 09:01:08 01/17/2021 13:05:15 Iliotibial band friction syndrome 622617352 M76.31 History of orthopedic surgery 9517724942 9101 Z98.890 Pain of ri ght hip joint 2577168811 49639 M25.551 Stiffness of joint of right hip 5934965915 88318 M25.076 [id number] VERO CABRERA, PILAR PHYSICAL THERAPY / HAND THERAPY [address] [place] [address] 01/24/2021 08:43:30 01/24/2021 10:12:04 Iliotibial band friction syndrome 595432843 M76.31 History of orthopedic surgery 0135129383 9101 Z98.890 Pain of ri ght hip joint 7168455477 67135 M25.551 Stiffness of joint of right hip 3689275907 70732 M25.571 [id number] VERO CABRERA PT PHYSICAL THERAPY / HAND THERAPY [address] [place] [address] 02/07/2021 09:05:41 02/07/2021 13:04:45 Iliotibial band friction syndrome 799698818 M76.31 History of orthopedic surgery 9096085670 9101 Z98.890 Pain of ri ght hip joint 2477407463 45202 M25.551 Stiffness of joint of right hip 2428065977 43827 M25.071 [id number] FREDDIE CAMPBELL MD [facility] [address] [address] 02/11/2021 18:15:02 02/11/2021 18:57:40 Postoperative care [id number] Z48.89 Assessment : 6 weeks status post right IT band release and greater trochanter bursectomy . The hip is doing well, primarily patellofem oral symptoms. Plan: Focus on gluteal and quad strengthen ing. I would recommend against jumping and running until her anterior knee pain dissipates . Follow-up 6 weeks. [id number] VERO CABRERA, PT PHYSICAL THERAPY / HAND THERAPY [address] [address] 02/14/2021 09:05:20 02/14/2021 10:51:05 Iliotibial band friction syndrome [id number] M76.31 History of orthopedic surgery [id number] 9101 Z98.890 Pain of ri ght hip joint [id number] 38165 M25.551 Stiffness of joint of right hip 1458222341 25121 M25.317 [id number] VERO CABRERA, PT PHYSICAL THERAPY / HAND THERAPY [address] [place] [address] 02/21/2021 09:00:58 02/21/2021 10:49:09 Iliotibial band friction syndrome [id number] M76.31 History of orthopedic surgery 8449340349 9101 Z98.890 Pain of ri ght hip joint 1375417716 41251 M25.551 Stiffness of joint of right hip 9182201975 84661 M25.856 [id number] VERO CABRERA, PT PHYSICAL THERAPY / HAND THERAPY [address] [place] [address] 02/28/2021 09:01:03 02/28/2021 10:24:32 Iliotibial band friction syndrome 275200943 M76.31 History of orthopedic surgery 5573174808 9101 Z98.890 Pain of ri ght hip joint 4258531343 60721 M25.551 Stiffness of joint of right hip 9753007147 53782 M25.951 [id number] VERO CABRERA, PT PHYSICAL THERAPY / HAND THERAPY [address] [place] [address] 03/07/2021 09:01:24 03/07/2021 10:16:40 Iliotibial band friction syndrome 850915683 M76.31 History of orthopedic surgery 1149748359 9101 Z98.890 Pain of ri ght hip joint 5115642379 21151 M25.551 Stiffness of joint of right hip 3890725428 10160 M25.586 [id number] VERO CABRERA, PT PHYSICAL THERAPY / HAND THERAPY [address] [place] [address] 03/21/2021 09:01:06 03/21/2021 10:49:01 Iliotibial band friction syndrome 189336438 M76.31 History of orthopedic surgery 2663293708 9101 Z98.890 Pain of ri ght hip joint 3451775028 56948 M25.551 Stiffness of joint of right hip 2290477667 39061 M25.906 [id number] FREDDIE CAMPBELL MD ORTHOPEDI CS [facility] [address] [place] [address] 03/24/2021 09:57:02 03/24/2021 12:46:48 Postoperative care [id number] Z48.89 Assessment : 3 months status post right IT band release and greater trochanter bursectomy . The hip is doing well, improving patellofem oral symptoms. Plan: Okay to discontinu e physical therapy and work on home exercise program. I think as she is starting to do more more activities , she is getting some fatigue anterior knee discomfort . Continue to work on strengthen ing and building endurance. She is reassured she is not causing problems. Follow-up as needed. Patellofem oral syndrome of right knee [id number] 862206 M22.2X1 [id number] LIANET SAMANIEGO APRN GASTRO [facility] [address] [facility], [address] [place] [address] 07/17/2021 13:19:01 07/17/2021 15:06:01 Diarrhea 02490764 R19.7 Urea breath testingLAb s, stools, rule out infectious , inflammato ry diseaseAvo id NSAIDS, ASA products. Tylenol okay, follow dosing on bottle.Sma ll, frequent meals, avoid greasy, spicy foods. [place] diet.Follo w up 6 weeks. Call for any questions or concerns. patient and mother verbalized understand ing. Right lowe r quadrant pain [id number] R10.31 Nausea 415522786 R11.0 [id number] LIANET SAMANIEGO BEAMING INSPECTOR GASTRO [facility] [address] [facility], [place] [address] 07/22/2021 10:29:14 07/22/2021 12:02:30 Nausea 967923349 R11.0 [id number] FREDDIE CAMPBELL MD ORTHOPEDI CS [facility] [address] [address] 02/02/2022 11:26:17 02/02/2022 11:59:18 Greater trochanteric pain syndrome of right lower limb [id number] 2434524 M70.61 Assessment : Trochanter ic bursitis with hip abduction weakness and tight IT band Plan: The pathogenes is of trochanter ic bursitis was again discussed today. It was discussed that she is not causing damage to the joint, but this can be a very painful and limiting disorder. For symptomati c relief, we can try anti-infla mmatories or potential steroid injection. Physical therapy is the best way to improve strength and prevent recurrence . Physical therapy was prescribed today. [id number] LIANET SAMANIEGO APRN GASTRO [facility] [address] [facility], [address] [place] [address] 02/02/2022 13:47:24 02/24/2022 13:04:02 Right lower quadrant pain 669932712 R10.31 Diarrhea 88947317 R19.7 Urea breath testingLAb s, stools, rule out infectious , inflammato ry diseaseAvo id NSAIDS, ASA products. Tylenol okay, follow dosing on bottle.Sma ll, frequent meals, avoid greasy, spicy foods. [place] diet.Follo w up 6 weeks. Call for any questions or concerns. patient and mother verbalized understand ing. [id number] WILEY CUMMINGS MD GASTRO [facility] [address] [facility], [facility] [address] [place] [address] 03/01/2023 15:31:19 03/01/2023 16:18:29 Right lower quadrant pain 656523889 R10.31 Will arrange ileocolono scopy, obtain crp and esr. I have asked her to try to use dicyclomin e 1-2 times per day since symptom has been daily more recentlyWe also discussed possibilit y for abdominal wall painObtain CT scan and labs from recent ER visit this month [id number] WILEY CUMMINGS MD SURGERY SCHEDULE [address] [place] [address] 03/12/2023 08:01:30 03/12/2023 08:02:17 Abdominal pain 68853894 R10.9 [id number] WILEY CUMMINGS MD GASTRO [facility] [address] [facility], [place] [id number] 04/14/2023 15:00:34 04/14/2023 16:16:46 Abdominal pain 31124641 R10.9 Stop dicyclomin e and start levsin 0.125 mg 2-3 times per dayWill arrange small bowel capsule studyIf no improvemen t with levsin, then stat low dose elavil if tolerated with her daily prozac useConside r referral for PT [id number] WILEY CUMMINGS MD GASTRO [facility] [address] [facility], [place] [id number] 05/06/2023 07:57:21 05/06/2023 11:23:29 [id number] KRYSTLE MARINO [facility] [address] [place] [address] 06/10/2023 10:30:42 06/10/2023 11:12:26 Pain in pelvis 05043141 R10.2 urine dip with blood - will culture and call patient with resultspat ient reports that it is time for menses Will evaluate with pelvic ultrasound and labspatien t has never been sexually active - no need for STI testing patient to follow up on same day as ultrasound to discuss results and plan of careif negative results - discussed increasing dose slightly of COCalso discussed referral to [facility]/MD for further evaluation - mother and patient concerned that pain is related to endometrio sis. [id number] KRYSTLE MARINO [facility] [address] [place] [address] 06/28/2023 08:24:01 06/28/2023 09:44:54 Pain in pelvis 96503789 R10.2 Discussed today's preliminar y ultrasound which is normal. No obvious reason for patient's pelvic pain.patie nt concerned that pain is related to endometrio sis.will refer patient to [facility]/MD for further evaluation . [id number] DO JOHN SCHUSTER [place] [address] [place] [address] 07/07/2023 14:49:57 07/07/2023 15:32:39 Pain in pelvis 96922588 R10.2 given extensive negative work up with ongoing symptoms in the setting of menorrhagi a and dysmenorrh ea and a fhx of endometrio sis we discussed moving forward with more invasive work up with dx scope. patient agrees and she is ready for next steps. r/b/a discussed. patient getting in august, desires surgery in july if possible. will continue felipe for now Menorrhagia 497066553 N9 2.0 discussed in the future could explore cutting to 10mcg lo loestrin to see if pain improves. Dysmenorrhea 282111140 N 94.6 decently controlled with felipe [id number] EMEKA GARCIA DO SURGERY SCHEDULE [address] [place] [address] 07/30/2023 06:28:34 07/30/2023 06:29:15 Pain in pelvis 52193020 R10.2 given extensive negative work up with ongoing symptoms in the setting of menorrhagi a and dysmenorrh ea and a fhx of endometrio sis we discussed moving forward with more invasive work up with dx scope. patient agrees and she is ready for next steps. r/b/a discussed. patient getting in august, desires surgery in july if possible. will continue felipe for now07/30/23 s/p dx scope and bx x2 Menorrhagia 802210507 N9 2.0 discussed in the future could explore cutting to 10mcg lo loestrin to see if pain improves. Dysmenorrhea 620057896 N 94.6 decently controlled with felipe [id number] DO JOHN SCHUSTER [facility] [address] [place] [address] 08/13/2023 15:02:55 08/13/2023 15:23:43 Pain in pelvis 41469890 R10.2 given extensive negative work up with ongoing symptoms in the setting of menorrhagi a and dysmenorrh ea and a fhx of endometrio sis we discussed moving forward with more invasive work up with dx scope. patient agrees and she is ready for next steps. r/b/a discussed. patient getting in august, desires surgery in july if possible. will continue felipe for now07/30/23 s/p dx scope and bx x208/13/23 pain resolved after surgery. continue felipe. Menorrhagia 222765870 N9 2.0 stable on felipe Dysmenorrhea 949561198 N 94.6 decently controlled with felipe, rx sent Postoperative pain 35029 9007 G89.18 patient is recovering appropriat douglas incisions are healing appropriat douglas call precaution s reviewed reviewed path endo schedule annual [id number] DO JOHN SCHUSTER [facility] [address] [place] [address] 12/22/2023 08:47:19 12/22/2023 09:46:43 Pain in pelvis 76429627 R10.2 given extensive negative work up with ongoing symptoms in the setting of menorrhagi a and dysmenorrh ea and a fhx of endometrio sis we discussed moving forward with more invasive work up with dx scope. patient agrees and she is ready for next steps. r/b/a discussed. patient getting in august, desires surgery in july if possible. will continue felipe for now07/30/23 s/p dx scope and bx x24/09/30 pain resolved after surgery. continue felipe. 4 will plan only 4 inactive pills and then start new pack and if this doesnt help will plan q3 months inactive pills (still only 4) us ordered for f/u in 3 months. call sooner if needed [id number] EMEKA GARCIA DO [facility] [address] [place] [address] 03/24/2024 14:42:16 03/25/2024 04:10:41 Pain in pelvis 57124506 R10.2 given extensive negative work up with ongoing symptoms in the setting of menorrhagi a and dysmenorrh ea and a fhx of endometrio sis we discussed moving forward with more invasive work up with dx scope. patient agrees and she is ready for next steps. r/b/a discussed. patient getting in august, desires surgery in july if possible. will continue felipe for now07/30/23 s/p dx scope and bx x208/13/23 pain resolved after surgery. continue felipe. 4 will plan only 4 inactive pills and then start new pack and if this doesnt help will plan q3 months inactive pills (still only 4) us ordered for f/u in 3 months. call sooner if vpsryp45/1 09/30 currently on felipe. continue until starting to try then dc. 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.9 discussed possible pain management referral for consult to discuss pain tx if needed prior to like nerve block etc Health Concerns Section Related Observation LastModified by Organization Detai ls LastModified Time None Recorded Concern Status LastModified by Organization Details LastModified Time None Recorded Advance Directives Directive None Recorded Payers Insurance Date Sequence Insurance Name Policy Number Policy Tamez Covered Member ID Tamez Member ID Guarantor Name 03/27/2024 1 [employer] [id number] Carlos Sahu [id number] Kassie Sahu 02/12/2023 1 [employer] - [employer] [place] (MEDICA[place]AC[place] - [place]MO[place] Kassie Sahu [id number] Kassie Sahu 12/22/2023 2 [employer] [facility] [place] [id number] Kassie Sahu [id number] Kassie Sahu 02/12/2023 2 [place] [id number] Kassie Sahu [id number] Kassie Sahu 06/10/2023 1 [facility] (EPO) [id number] Carlos Sahu [id number] Kassie Sahu Notes Date Note Type Note Provider Name and Address Organization Details Recorded Time 07/07/2023 text/html patient in offic e for RLQ pain. she states her pain has been over a year. she states it feels likewhen it started it was a sharp and throbbing. now it feels like a pulsating type pain. she states it doesnt feel worse on her cycles. she states she does have pain daily. baseline daily pain hangs out around a 4 and she had to go to the hospital twice due to severe pain. she reports she had a grand mother with endometriosis and is concerned this could be a possibility for her given her extensive GI work up which has been negative. of note history of dysmenorrhea/menorr hagia which she has been on FELIPE for. she does well with them. she also has a h/x significant for being on prozac x 1 year today on ROS she denies nausea, vomiting, fever, chills, hematuria, dysuria, abnormal vaginal discharge, odor, or itching. EMEKA GARCIA DO [address] [place], [address], [facility] 07/07/2023 16:19:15 08/13/2023 text/html patient is in office today for post op visit. she is 2 weeks post op from dx scope. she has been doing well since surgery. she denies fever, chills, nausea, vomiting, hematuria, dysuria, and abnormal discharge since surgery. at home her pain is still controlled, is ambulating with ease, and denies any issues with urination or defecation. states her bleeding is gone EMEKA GARCIA DO [address] [place], [address], [facility] 08/13/2023 15:47:07 12/22/2023 text/html patient in offic e to follow up on abdominal pain. she states its the same pulsating stabbing pain as before. she states the pain is daily and it comes and goes. she describes it as a sharp pain. today on ROS she denies nausea, vomiting, fever, chills, hematuria, dysuria, abnormal vaginal discharge, odor, or itching. EMEKA GARCIA DO [address] [place], [address], [facility] 12/22/2023 09:31:17 03/24/2024 text/html patient in offic e today to discuss pelvic pain. she stats she has had more flares over the past few months. she states she took tylenol, motrin, heating pads. she states she also tried hot showers for the pain. she also desires to discuss family planning as they would like to consider starting to try again soon. today on ROS she denies nausea, vomiting, fever, chills, hematuria, dysuria, abnormal vaginal discharge, odor, or itching. EMEKA GARCIA DO [address] [place], [address], [facility] 03/24/2024 16:18:06 OBGyn Episode No OBEpisode recorded.
[2024-10-24 15:27] LABS: 25-OH Vitamin D, Total 31.2 ng/mL (30-100)
== END 2024-10-24 23:59 | disposition home or self-care (01) ==
LOC: LAB 14:01
PROVIDERS: PCP Nurse Practitioner Family; Visit Provider Obstetrics & Gynecology
DX: O21.9 Vomiting of pregnancy, unspecified (principal); R51.9 Headache, unspecified; R79.89 Other specified abnormal findings of blood chemistry; R53.83 Other fatigue; Z3A.00 Weeks of gestation of pregnancy not specified
CPT/HCPCS: 36415; 82306; 84443

== ENCOUNTER 2024-10-26 08:50 | Outpatient (CLI) | payer BC, SELFPAY ==
--- OUTSIDE RECORDS SUMMARY | 2024-10-26 08:53 | XMS_ITS | Data Portability ---
Author Organization [facility] REENA Chambers [place] [facility] Address [address] [facility] [address] [place] [address] Care Team Providers Care Principal Investigator Name Role Phone SHAHZAD STACY Primary Care Provider Assessment No assessment recorded. Plan of Treatment Reminders Order Date Submit Date Provider Last Modified By Organization Details Last Modified Time Details Appointments ANNUAL ASSORTMENT PLANNER 2024 02:15P M EMEKA GARCIA DO Not available Not available Not available Lab None recorded. Referral None recorded. Procedures None recorded. Surgeries laparosco py, diagnosti c (SURG) 2023 [email or web address] [facility] Professional [facility]es, [address] [facility], [facility] [address], [place], [address], 08/27/2023 09:39:09 Imaging US, transvagi nal 2023 024 [facility], [address] [place], [address], 03/24/2024 15:23:49 Medication Orders Larissia 0.1 mg-20 mcg tablet 2023 024 [email or web address] [facility] [address], [address] [place], [address], 12/22/2023 09:30:58 Larissia 0.1 mg-20 mcg tablet [address] [facility] [address], [address] [place], [address], 08/13/2023 15:20:18 Patient TargetsNo targets recorded. Patient Instructions Encounter Date Encounter Id Patient Instructions Last Modified By Organization Details Last Modified Time 03/24/2024 [id number] pain management sneace Not available 03/24/2024 15:29:53 Reason for Referral None Reported. Results Created Date Observation Date Name Description Value Unit Range Abnormal Flag Note LastModifiedBy Organization Detail LastModifiedTime 06/10/19 24 06/10/2023 GENER AL HEALT H PANEL glucose 84 mg/dL 74-100 normal Not Available [facility] [address] [place] [address], [address], 06/10/2023 14:04:24 06/10/19 24 06/10/2023 GENER AL HEALT H PANEL blood urea nitrogen 6 mg/dL 6-20 normal Not Available [facility] [address] [place] [address], [address], 06/10/2023 14:04:24 06/10/19 24 06/10/2023 GENER AL HEALT H PANEL creatinine 0.92 mg/dL 0.50-0 .95 normal Not Available [facility] [address] [place] [address], [address], 06/10/2023 14:04:24 06/10/19 24 06/10/2023 GENER AL HEALT H PANEL BUN/creatini ne ratio 7 (calc ) 10-20 low Not Available [facility] [address] [place] [address], [address], 06/10/2023 14:04:24 06/10/19 24 06/10/2023 GENER AL HEALT H PANEL sodium 140 mmol/ L 136-14 5 normal Not Available [facility] [address] [place] [address], [address], 06/10/2023 14:04:24 06/10/19 24 06/10/2023 GENER AL HEALT H PANEL potassium 3.9 mmol/ L 3.4-5. 0 normal Not Available [facility] [address] [place] [address], [address], 06/10/2023 14:04:24 06/10/19 24 06/10/2023 GENER AL HEALT H PANEL chloride 107 mmol/ L 98-107 normal Not Available [facility] [address] [place] [address], [address], 06/10/2023 14:04:24 06/10/19 24 06/10/2023 GENER AL HEALT H PANEL carbon dioxide 21 mmol/ L 22-31 low Not Available [facility] [address] [place] [address], [address], 06/10/2023 14:04:24 06/10/19 24 06/10/2023 GENER AL HEALT H PANEL anion gap 12 (calc ) 7-25 normal Not Available [facility] [address] [place] [address], [address], 06/10/2023 14:04:24 06/10/19 24 06/10/2023 GENER AL HEALT H PANEL calcium 9.3 mg/dL 8.6-10 .2 normal Not Available [facility] [address] [place] [address], [address], 06/10/2023 14:04:24 06/10/19 24 06/10/2023 GENER AL HEALT H PANEL total protein 8.0 g/dL 6.4-8. 3 normal Not Available [facility] [address] [place] [address], [address], 06/10/2023 14:04:24 06/10/19 24 06/10/2023 GENER AL HEALT H PANEL albumin 4.5 g/dL 3.5-5. 2 normal Not Available [facility] [address] [place] [address], [address], 06/10/2023 14:04:24 06/10/19 24 06/10/2023 GENER AL HEALT H PANEL globulin 3.5 1.5-4. 5 normal Not Available [facility] [address] [place] [address], [address], 06/10/2023 14:04:24 06/10/19 24 06/10/2023 GENER AL HEALT H PANEL albumin/glob ulin ratio 1.3 (calc ) 1.1-2. 5 normal Not Available [facility] [address] [place] [address], [address], 06/10/2023 14:04:24 06/10/19 24 06/10/2023 GENER AL HEALT H PANEL bilirubin, total 0.4 mg/dL 0.1-1. 2 normal Not Available [facility] [address] [place] [address], [address], 06/10/2023 14:04:24 06/10/19 24 06/10/2023 GENER AL HEALT H PANEL alkaline phosphatase 44 U/L 30-121 normal Not Available [facility] [address] [place] [address], [address], 06/10/2023 14:04:24 06/10/19 24 06/10/2023 GENER AL HEALT H PANEL AST 23 U/L 0-32 normal Not Available [facility] [address] [place] [address], [address], 06/10/2023 14:04:24 06/10/19 24 06/10/2023 GENER AL HEALT H PANEL ALT 15 U/L 0-33 normal Not Available [facility] [address] [place] [address], [address], 06/10/2023 14:04:24 06/10/19 24 06/10/2023 GENER AL [...] s/KDO QI/gf r_cal culat orPed Not Available [facility] [address] [place] [address], [address], 06/10/2023 14:04:24 06/10/19 24 06/10/2023 GENER AL HEALT H PANEL white blood cells 6.0 10*3/ uL 3.8-10 .8 normal Not Available [facility] [address] [place] [address], [address], 06/10/2023 14:04:24 06/10/19 24 06/10/2023 GENER AL HEALT H PANEL red blood cells 4.42 10*6/ uL 3.80-5 .20 normal Not Available [facility] [address] [place] [address], [address], 06/10/2023 14:04:24 06/10/19 24 06/10/2023 GENER AL HEALT H PANEL hemoglobin 13.7 g/dL 12.0-1 6.0 normal Not Available [facility] [address] [place] [address], [address], 06/10/2023 14:04:24 06/10/19 24 06/10/2023 GENER AL HEALT H PANEL hematocrit 39.9 % 35.0-4 7.0 normal Not Available [facility] [address] [place] [address], [address], 06/10/2023 14:04:24 06/10/19 24 06/10/2023 GENER AL HEALT H PANEL MCV 90 fL 80-100 normal Not Available [facility] [address] [place] [address], [address], 06/10/2023 14:04:24 06/10/19 24 06/10/2023 GENER AL HEALT H PANEL MCH 31 pg 26-35 normal Not Available [facility] [address] [place] [address], [address], 06/10/2023 14:04:24 06/10/19 24 06/10/2023 GENER AL HEALT H PANEL MCHC 34 g/dL 32-36 normal Not Available [facility] [address] [place] [address], [address], 06/10/2023 14:04:24 06/10/19 24 06/10/2023 GENER AL HEALT H PANEL RDW 13.2 % 11.0-1 5.0 normal Not Available [facility] [address] [place] [address], [address], 06/10/2023 14:04:24 06/10/19 24 06/10/2023 GENER AL HEALT H PANEL MPV 8.4 fL 6.2-10 .5 normal Not Available [facility] [address] [place] [address], [address], 06/10/2023 14:04:24 06/10/19 24 06/10/2023 GENER AL HEALT H PANEL platelet count 324 10*3/ uL 150-40 0 normal Not Available [facility] [address] [place] [address], [address], 06/10/2023 14:04:24 06/10/19 24 06/10/2023 GENER AL HEALT H PANEL neutrophil,a bsolute 3.7 10*3/ uL 1.6-8. 4 normal Not Available [facility] [address] [place] [address], [address], 06/10/2023 14:04:24 06/10/19 24 06/10/2023 GENER AL HEALT H PANEL lymphocyte,a bsolute 1.6 10*3/ uL 0.4-5. 1 normal Not Available [facility] [address] [place] [address], [address], 06/10/2023 14:04:24 06/10/19 24 06/10/2023 GENER AL HEALT H PANEL monocyte,abs olute 0.5 10*3/ uL 0.0-1. 2 normal Not Available [facility] [address] [place] [address], [address], 06/10/2023 14:04:24 06/10/19 24 06/10/2023 GENER AL HEALT H PANEL eosinophil,a bsolute 0.1 10*3/ uL 0.0-0. 8 normal Not Available [facility] [address] [place] [address], [address], 06/10/2023 14:04:24 06/10/19 24 06/10/2023 GENER AL HEALT H PANEL basophil,abs olute 0.1 10*3/ uL 0.0-0. 3 normal Not Available [facility] [address] [place] [address], [address], 06/10/2023 14:04:24 06/10/19 24 06/10/2023 GENER AL HEALT H PANEL % neutrophils 62.4 % 42.0-7 8.0 normal Not Available [facility] [address] [place] [address], [address], 06/10/2023 14:04:24 06/10/19 24 06/10/2023 GENER AL HEALT H PANEL % lymphocytes 27.1 % 11.0-4 7.0 normal Not Available [facility] [address] [place] [address], [address], 06/10/2023 14:04:24 06/10/19 24 06/10/2023 GENER AL HEALT H PANEL % monocytes 7.7 % 0.0-11 .0 normal Not Available [facility] [address] [place] [address], [address], 06/10/2023 14:04:24 06/10/19 24 06/10/2023 GENER AL HEALT H PANEL % eosinophils 1.9 % 0.0-7. 0 normal Not Available [facility] [address] [place] [address], [address], 06/10/2023 14:04:24 06/10/19 24 06/10/2023 GENER AL HEALT H PANEL % basophils 0.9 % 0.0-3. 0 normal Not Available [facility] [address] [place] [address], [address], 06/10/2023 14:04:24 06/10/19 24 06/10/2023 GENER AL HEALT H PANEL nucleated red cells 0.1 % 0.0-0. 9 normal Not Available [facility] [address] [place] [address], [address], 06/10/2023 14:04:24 06/10/19 24 06/10/2023 GENER AL HEALT H PANEL nucleated RBCs, absolute 0.00 10*3/ uL not estab. normal Not Available [facility] [address] [place] [address], [address], 06/10/2023 14:04:24 06/10/19 24 06/10/2023 GENER AL HEALT H PANEL TSH 8.470 u[IU] /mL 0.270- 4.200 high Not Available [facility] [address] [place] [address], [address], 06/10/2023 14:04:24 06/10/19 24 06/10/2023 FOLLI DORIAN [...] - 134.8 MIU/M L . Not Available [facility] [address] [place] [address], [address], 06/10/2023 14:04:18 06/10/19 24 06/10/2023 LUTEN IZING HORMO NE lutenizing hormone 5.3 m[IU] /mL 1.0-95 .6 normal LH EXPEC LUCIA VALUE S WOMEN : FOLLI CULAR PHASE 2.4-1 2.6 mIU/m L OVULA TION PHASE 14.0- 95.6 mIU/m L LUTEA L PHASE 1.0-1 1.4 mIU/m L POSTM ENOPA USE 7.7-5 8.5 mIU/m L . Not Available [facility] [address] [place], [address], 06/10/2023 14:04:20 06/10/19 24 06/10/2023 PROGE STERO [...] 58.7 - 214.0 ng/mL . Not Available [facility] [address] [place], [address], 06/10/2023 14:04:22 06/10/19 24 06/10/2023 DHEA SULFA TE DHEA sulfate 349.0 ug/dL 65.1-3 68.0 normal Not Available [facility] [address] [place], [address], 06/10/2023 14:04:26 06/10/19 24 06/10/2023 ESTRA DIOL [...] > 30,00 0 pg/mL . Not Available [facility] [address] [place], [address], 06/10/2023 14:04:28 06/10/19 24 06/14/2023 URINE CULTU RE urine culture ISOLA TE #1 COLON Y COUNT : 10,00 0 - 100,0 00 CFU/M L Minut e alpha colon y; proba ble Lacto bacil nataly. Not Available [facility] [address] [place], [address], 06/14/2023 14:48:21 06/10/19 24 06/10/2023 urina lysis panel , auto Unknown Analyte 250 Jamaal/ul Not Available [address], [place], [address], 06/10/2023 11:49:44 06/10/19 24 06/10/2023 urina lysis panel , auto Unknown Analyte Negati ve Not Available [address], [place], [address], 06/10/2023 11:49:44 06/10/19 24 06/10/2023 urina lysis panel , auto Unknown Analyte Normal Not Available [address], [place], [address], 06/10/2023 11:49:44 06/10/19 24 06/10/2023 urina lysis panel , auto Unknown Analyte Negati ve Not Available [address], [place], [address], 06/10/2023 11:49:44 06/10/19 24 06/10/2023 urina lysis panel , auto Unknown Analyte Normal Not Available [address], [place], [address], 06/10/2023 11:49:44 06/10/19 24 06/10/2023 urina lysis panel , auto Unknown Analyte Negati ve Not Available [address], [place], [address], 06/10/2023 11:49:44 06/10/19 24 06/10/2023 urina lysis panel , auto Unknown Analyte Negati ve Not Available [address], [place], [address], 06/10/2023 11:49:44 06/10/19 24 06/10/2023 urina lysis panel , auto Unknown Analyte Negati ve Not Available [address], [place], [address], 06/10/2023 11:49:44 06/10/19 24 06/10/2023 urina lysis panel , auto Unknown Analyte Clean Catch Not Available [address], [place], [address], 06/10/2023 11:49:44 06/10/19 24 06/10/2023 urina lysis panel , auto Unknown Analyte Yellow Not Available [address], [place], [address], 06/10/2023 11:49:44 06/10/19 24 06/10/2023 urina lysis panel , auto Unknown Analyte Slight ly Hazy Not Available [address], [place], [address], 06/10/2023 11:49:44 06/10/19 24 06/10/2023 urina lysis panel , auto Unknown Analyte 7.0 Not Available [address], [place], [address], 06/10/2023 11:49:44 06/10/19 24 06/10/2023 urina lysis panel , auto Unknown Analyte 1.005 Not Available [address], [place], [address], 06/10/2023 11:49:44 07/30/19 24 07/30/2023 SURGI KHUSHBU [...] 15:18 Page 1 of 1 Not Available [facility] [address] [facility], [place], [address], 08/02/2023 15:18:24 06/28/19 24 06/28/2023 US, trans vagin al [facility] [address] [place] [address] Patisushila t Name: KASSIE SAHU Patisushila t : 004 Patien t Orderi ng Provid er: AMADOR LÓPEZ GTON EXAM DATE: 2023 EXAM: US PELVIS ASSORTMENT PLANNER TRANSV AGINAL CLINIC AL INFORM ATION: Right [...] By: Jeremy Owens MD on 10:24 AM [facility] [address] [facility] [address], [place], [address], 07/01/2023 10:43:39 03/24/20 24 03/24/2024 US, trans vagin al [facility] [address] [facility] [address] [place] [address] Patien t Name: KASSIE SAHU Patien t : 004 Patien t Orderi ng Provid er: EMEKA GARCIA EXAM DATE: 2023 EXAM: US PELVIS ASSORTMENT PLANNER TRANSV AGINAL CLINIC AL INFORM ATION: Pain [...] Aguirre MD on 2023 3:18 PM sneace [facility] [address] [facility] [address], [place], [address], 03/24/2024 16:13:54 Result Notes None recorded. Problems Name Problem SNOMED Code Status Onset Date Resolution Date Notes Provider Name and Address Organization Details Recorded Time Hypertrop hy of tonsils AND adenoids 55752741 Active 2015 From Automated Load;Prov ider: Christopher Villa Ray;Statu s: Active Not Available [facility] 6 04:39:59 Disorder of thyroid gland 45297802 Active 2015 From Automated Load;Prov ider: Christopher Villa Ray;Statu s: Active Not Available [facility] 6 04:39:59 Chronic tonsillit is 86042438 Active 2015 From Automated Load;Prov ider: Christopher Villa Ray;Statu s: Active Not Available [facility] 6 04:40:03 Pain of right hip joint 51766773971 9102 Active 2019 MELANIE VINSON, PT [address] [place], [address] , [facility] 0 18:56:48 Pain of left hip joint 89011867469 9100 Active 2019 MELANIE VINSON, PT [address] [place], [address] , [facility] 0 18:56:50 Muscle weakness 30310191 Active 2019 MELANIE VINSON, PT [address] [place], [address] , [facility] 0 18:56:53 Abnormal gait 03186078 Active 2019 MELANIE VINSON, PT [address] [place], [address] , [facility] 0 18:56:54 Problem Notes None recorded. Procedures Surgical History Date Name Laterality Status Provider Name and Address Organization Details Recorded Time 4 Salpingectomy, Laparoscopy completed EMEKA GRACIA DO [address] [place], [address], [facility] 07/30/2023 11:03:52 3 Capsule Endoscopy completed Cordelia Mirza [facility] 05/06/2023 08:18:54 1 PT Evaluation - Moderate Complexity completed VERO CABRERA, PT [address] [place], [address], [facility] 12/27/2020 09:05:08 1 Injection Joint/Bursa, Major completed FREDDIE CAMPBELL MD [address] [place], [address], [facility] 09/16/2020 12:52:18 1 PT Therapeutic Exercise completed MELANIE VINSON, PT [address] [place], [address], [facility] 06/07/2020 15:43:43 1 PT Therapeutic Exercise completed MELANIE VINSON, PT [address] [place], [address], [facility] 05/24/2020 14:34:55 0 PT Therapeutic Exercise completed MELANIE VINSON, PT [address] [place], [address], [facility] 04/26/2020 13:10:15 0 PT Evaluation - Low Complexity completed MELANIE VINSON, PT [address] [place], [address], [facility] 04/11/2020 18:49:34 0 PT Therapeutic Exercise completed MELANIE VINSON, PT [address] [place], [address], [facility] 04/11/2020 18:49:54 0 OT Therapeutic Exercise completed VERO WALDROP, OTR/L, CHT [address] [place], [address], [facility] 09/05/2019 14:43:06 0 OT Manual Therapy completed VERO WALDROP, OTR/L, CHT [address] [place], [address], [facility] 09/05/2019 13:59:00 0 OT Therapeutic Exercise completed VERO WALDROP, OTR/L, CHT [address] [place], [address], [facility] 08/25/2019 12:34:06 0 OT Therapeutic Exercise completed VERO WALDROP, OTR/L, CHT [address] [place], [address], [facility] 07/27/2019 12:05:11 0 OT Manual Therapy completed VERO WALDROP, OTR/L, CHT [address] [place], [address], [facility] 07/27/2019 11:27:54 0 PT Paraffin Bath completed VERO WALDROP, OTR/L, CHT [address] [place], [address], [facility] 07/27/2019 11:27:54 0 OT Therapeutic Exercise completed VERO WALDROP, OTR/L, CHT [address] [place], [address], [facility] 07/20/2019 11:59:41 0 OT Manual Therapy completed VERO WALDROP, OTR/L, CHT [address] [place], [address], [facility] 07/20/2019 11:16:00 0 PT Paraffin Bath completed VERO WALDROP, OTR/L, CHT [address] [place], [address], [facility] 07/20/2019 11:16:00 0 OT Therapeutic Exercise completed VERO WALDROP, OTR/L, CHT [address] [place], [address], [facility] 07/13/2019 11:59:49 0 OT Manual Therapy completed VERO WALDROP, OTR/L, CHT [address] [place], [address], [facility] 07/13/2019 11:05:15 0 PT Paraffin Bath completed VERO WALDROP, OTR/L, CHT [address] [place], [address], [facility] 07/13/2019 11:05:15 0 OT Therapeutic Exercise completed VERO WALDROP, OTR/L, CHT [address] [place], [address], [facility] 07/07/2019 09:38:11 0 OT Manual Therapy completed VERO WALDROP, OTR/L, CHT [address] [place], [address], [facility] 07/07/2019 08:53:52 0 PT Paraffin Bath completed VERO WALDROP, OTR/L, CHT [address] [place], [address], [facility] 07/07/2019 08:53:52 0 OT Evaluation - Moderate complexity completed VERO WALDROP, OTR/L, CHT [address] [place], [address], [facility] 06/30/2019 16:19:46 0 OT Therapeutic Exercise completed VERO WALDROP, OTR/L, CHT [address] [place], [address], [facility] 06/30/2019 16:26:13 0 OT Manual Therapy completed VERO WALDROP, OTR/L, CHT [address] [place], [address], [facility] 06/30/2019 16:26:12 0 PT Paraffin Bath completed VERO WALDROP, OTR/L, CHT [address] [place], [address], [facility] 06/30/2019 16:26:06 0 Orthotic, WHO, Static Custom completed VERO WALDROP, OTR/L, CHT [address] [place], [address], [facility] 06/27/2019 13:52:42 0 Orthotic, EWHO, Static Custom completed VERO WALDROP OTR/L, CHT [address] [place], [address], [facility] 06/20/2019 16:14:00 0 Op Note completed RIVAS BREAUX MD [address] [place], [address], [facility] 06/12/2019 12:00:49 8 Spirometry completed [facility] 01/24/2018 10:59:57 8 Allergy Testing completed [facility] 01/24/2018 10:59:50 8 Cerumen removal - Instruments, Bilateral [facility] 10:35:08 Imaging Results None recorded. Procedure Notes None recorded. Medical Equipment None Reported. Allergies Allergen ID Allergen Name Allergen Category Reaction Reaction Severity Criticality Documentation Date Start Date Code Code System Note Provider Name and Address Organization Details Recorded Time 406707 Omnicef medicatio n Not available Not available Not available 04/03/20162015 12109 RxNorm Comme nt: Nadir ed By: Wade gordillo Date: 2015 11:04 :02 AM; Not Available [facility] 6 10:11:41 Medications Name Sig Start Date [...] way regardle ss of coverage status. Bin: [id number] PCN: CN Group: [id number] ID: [id number] 331. 03/24 completed Not Available Not Available Not Available Vitals Date Recorded Body height Body mass index (BMI) [Percentile] Per age and sex Body mass index (BMI) Body weight Systolic blood pressure Diastolic blood pressure Provider Name and Address Organization Details Last Updated DateTime 4 165.1 cm 75 % 24.4 kg/m2 45395.2 9 g 116 mm[Hg] 70 mm[Hg] [facility] 4 14:54:49 Date Recorded Body height Body mass index (BMI) [Percentile] Per age and sex Body mass index (BMI) Body weight Systolic blood pressure Diastolic blood pressure Provider Name and Address Organization Details Last Updated DateTime 4 165.1 cm 74 % 24.3 kg/m2 25730.4 9 g 112 mm[Hg] 68 mm[Hg] [facility] 4 15:05:51 Date Recorded Body height Body mass index (BMI) [Percentile] Per age and sex Body mass index (BMI) Body weight Systolic blood pressure Diastolic blood pressure Provider Name and Address Organization Details Last Updated DateTime 4 165.1 cm 85 % 26.5 kg/m2 30556.8 9 g 112 mm[Hg] 64 mm[Hg] Anh Ratliff [facility] 4 09:02:37 Date Recorded Body height Body mass index (BMI) [Percentile] Per age and sex Body mass index (BMI) Body weight Systolic blood pressure Diastolic blood pressure Provider Name and Address Organization Details Last Updated DateTime 4 165.1 cm 85 % 26.7 kg/m2 13971.5 8 g 110 mm[Hg] 64 mm[Hg] Clare Hernandez [facility] 4 15:07:59 Social History Question Answer Notes LastModified by Organizat ion Details LastModified Time Tobacco Smoking Status Never Smoker FREDDIE CAMBPELL MD [address] [place] [address], [address], [facility] 02/02/2022 11:34:36 Which Of Your Hands Is Dominant? Right Information not available 06/06/2019 Lives With Parents Yes [email or web address] Information not available 01/06/2018 Exposure To Smoke No [email or web address] Information not available 01/06/2018 What Was The [...] LastModified Time Mother Disorder of thyroid gland [email or web address] Not available 01/06 09:55:02 Mother Hypertensive disorder [email or web address] Not available 01/06 09:55:12 Maternal Grandmother Disorder of thyroid gland [email or web address] Not available 01/06 09:55:02 Paternal Grandmother Disorder of thyroid gland [email or web address] Not available 01/06 09:55:02 Father Hypertensive disorder [email or web address] Not available 01/06 09:55:12 Father Diabetes mellitus [email or web address] Not available 01/06 09:55:33 Paternal Grandfather Family history of stroke [email or web address] Not available 01/06 09:55:25 Medical History Condition Response Other N Gout N Kidney Stones N COPD N Depression Y Pneumonia N Arthritis N Blood Clot N Cancer N Stroke N Varicosities N Hoarseness N Headaches Y Kidney Disease N Heart Problems N Heart Conditions N Migraines N Skin Problems N Rheumatic Fever N Bleeding Disorder N Tuberculosis N Genetic Disorder N AIDS/HIV N Asthma N Hepatitis N Included as Review of Systems N Chicken Pox N Anxiety/Depression N Thyroid Disease Y Hernia N Glaucoma N Lung Disease N Anesthesia Complications N Deep Vein Thrombosis N Blood Thinners N Shortness of Breath N Alcohol Overuse/Alcohol Abuse N High Cholesterol N Liver Disease N Allergies/Hayfever N Thyroid Problems Y Anemia N Immune System Disorder N Heart Attack (CT) N Mental Illness N Neurological Problems N [...] Hep B, adult 10/12/2022 completed Shahana Gant [facility] 10/13/2022 09:51:15 Hep B, adult 11/13/2022 completed Shahana Gant [facility] 11/13/2022 13:45:55 Influenza, split virus, quadrivalent, PF 02/04/2023 completed Dania Iraheta [facility] 02/05/2023 13:22:34 Past Encounters Encounter ID Performer Location Encounter Start Date Encounter Closed Date Diagnosis/Indication Diagnosis SNOMED-CT Code Diagnosis ICD10 Code Diagnosis Note [id number] MD JOSHUA RODRÍGUEZ [facility] [address] [place] [address] 01/06/2018 09:26:00 01/12/2018 08:25:46 Allergic rhinitis 20124186 J30.9 -allergy tested 2007 Dr. Carranza = + foods, ? inhalant results Headache 03339818 R51 -frontal, ? sinus etiology Hypertroph y of nasal turbinates 17370749 J34.3 Impacted cerumen 4959253 6 H61.23 -bilateral cerumenect tova 01/06/18 Dysfunctio n of eustachian tube 28413106 H69.93 [id number] EMILEE CALIXTO MD [place] [facility] [employer] [address] [place] [address] 01/24/2018 09:15:27 01/24/2018 11:02:31 [id number] EMILEE CALIXTO MD [place] ENT [facility] [place] [address] 01/24/2018 11:01:45 01/24/2018 13:17:48 Allergic rhinitis 10122379 J30.9 -allergy tested 2007 Dr. Carranza = + foods, ? 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 No obvious bone abnormalit y. There does appear to be some signal abnormalit y within the TFCC, but difficult to determine if this is a tear. The ulnar foveal attachment appears intact. 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 The ulnar foveal attachment appears intact. 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 The ulnar foveal attachment appears intact. 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 The ulnar foveal attachment appears intact. 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 431731044 S69.81XD TFCC Debridemen t [id number] MARGARET MANZO/L, CHT PHYSICAL THERAPY / [facility] [address] [place] [id number] 07/07/2019 08:15:56 07/07/2019 13:21:44 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 298671620 S69.81XD TFCC Debridemen t [id number] MARGARET MANZO/L, CHT PHYSICAL THERAPY / [facility] [address] [place] [id number] 07/13/2019 10:50:18 07/13/2019 14:11:09 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 387552992 S69.81XD TFCC Debridemen t [id number] MARGARET MANZO/Ellen, CHT PHYSICAL THERAPY / [facility] TH[facility]APY [facility] [address] [place] [id number] 07/20/2019 11:03:13 07/20/2019 13:04:47 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 916389113 S69.81XD TFCC Debridemen t [id number] RIVAS BREAUX MD ORTHOPEDI [address] [place] [id number] 07/25/2019 13:18:01 07/25/2019 14:10:42 Postoperative care 823095619 Z48.89 6 weeks s/p Right wrist arthroscop ic TFCC debridemen t (DOS: 06/12/2019) [id number] MARGARET MANZO/L, CHT PHYSICAL THERAPY / [facility] [address] [place] [id number] 07/27/2019 11:06:53 07/27/2019 12:54:01 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 527908950 S69.81XD TFCC Debridemen t [id number] MARGARET MANZO/L, CHT PHYSICAL THERAPY / [facility]APY [facility] [address] [place] [id number] 08/25/2019 12:19:33 08/28/2019 08:57:02 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 314629317 S69.81XD TFCC Debridemen t [id number] RIVAS BREAUX MD [facility] [address] [place] [address] 09/05/2019 10:17:31 09/05/2019 13:29:33 Postoperative care 303207050 Z48.89 12 weeks s/p Right wrist arthroscop ic TFCC debridemen t (DOS: 06/12/2019) [id number] VERO WALDROP, OTR/L, CHT PHYSICAL THERAPY / HAND THERAPY [facility] [address] [place] [address] 09/05/2019 13:50:06 09/05/2019 15:26:56 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 839260279 S69.81XD TFCC Debridemen t [id number] MAX AWLTON [facility] [address] [place] [address] 03/25/2020 09:37:04 03/25/2020 10:20:09 Pain of hip region 97970134 M25.551 M25.552 Iliotibial band friction syndrome 940362970 M76.30 Trochanter ic bursitis of left hip 5574251675 36171 M70.62 Trochanter ic bursitis of right hip 4931581199 88343 M70.61 [id number] MELANIE VINSON, PT PHYSICAL THERAPY / HAND THERAPY [facility] [address] [place] [address] 04/11/2020 15:28:43 04/11/2020 18:57:17 Pain of right hip joint 6247465244 58599 M25.551 Pain of le ft hip joint 8269678722 03520 M25.552 Muscle weakness 51559561 M62.81 Abnormal gait 93083240 R 26.9 [id number] MELANIE VINSON, PT PHYSICAL THERAPY / HAND TH[facility]APY [facility] [address] [place] [address] 04/26/2020 10:14:50 04/26/2020 13:33:34 Pain of left hip joint 0931203718 46378 M25.552 Pain of ri ght hip joint 4583389217 07572 M25.551 Muscle weakness 22629201 M62.81 Abnormal gait 95053600 R 26.9 [id number] MAX WALTON [facility] [address] [place] [id number] 05/24/2020 10:27:19 05/24/2020 12:18:58 Tendinitis of right hip adductor muscle 1288186123 242988 M67.242 [id number] MELANIE VINSON, PT PHYSICAL THERAPY / HAND TH[facility]APY [facility] [address] [place] [address] 05/24/2020 10:26:41 05/24/2020 15:30:56 Pain of left hip joint 4633477036 31506 M25.552 Pain of ri ght hip joint 6503139079 72449 M25.551 Muscle weakness 46464608 M62.81 Abnormal gait 00259026 R 26.9 [id number] MELANEI VINSON, PT PHYSICAL THERAPY / HAND TH[facility]APY [facility] [address] [place] [id number] 06/07/2020 10:51:12 06/07/2020 16:09:30 Muscle weakness 03778592 M62.81 Pain of le ft hip joint 1325952521 39062 M25.552 Abnormal gait 98507129 R 26.9 Pain of ri ght hip joint 8810622591 71879 M25.842 [id number] MAX W[facility]TON [facility] [address] [place] [id number] 09/13/2020 09:52:21 09/13/2020 10:29:28 Pain of right hip joint 4500118438 88774 M25.096 [id number] FREDDIE CAMPBELL MD [facility]THOPEDI CS [facility] [address] [place] [id number] 09/16/2020 10:25:44 09/16/2020 12:08:51 Tendinitis of right gluteal tendon 0211453651 10946 M76.01 A: Right gluteal tendinitis , snapping [...] to improve strength and prevent recurrence . [id number] FREDDIE CAMPBELL MD [facility]THOPEDI [facility] [address] [place] [id number] 12/10/2020 10:30:38 12/10/2020 11:39:58 Tendinitis of right gluteal tendon 5986423056 92442 M76.01 A: Right gluteal tendinitis , snapping [...] answered. Trochanter ic bursitis of right hip 6222507527 12113 M70.61 [id number] FREDDIE CAMPBELL MD SURGERY SCHEDULE [address] [place] [address] 12/19/2020 06:26:55 12/19/2020 06:27:57 Postoperative care 474190792 Z48.89 [id number] VERO CABRERA, PT PHYSICAL THERAPY / HAND THERAPY [address] [place] [id number] 12/27/2020 07:58:00 12/27/2020 09:20:36 Iliotibial band friction syndrome 749907291 M76.31 History of orthopedic surgery 7181684572 9101 Z98.890 Pain of ri ght hip joint 2189243137 72743 M25.551 Stiffness of joint of right hip 6678765277 17732 M25.834 [id number] VERO CABRERA, PILAR PHYSICAL THERAPY / HAND THERAPY [address] [place] [id number] 01/03/2021 08:53:00 01/03/2021 14:57:36 Iliotibial band friction syndrome 339302928 M76.31 History of orthopedic surgery 8763669408 9101 Z98.890 Pain of ri ght hip joint 7044120223 87502 M25.551 Stiffness of joint of right hip 3112670042 37424 M25.511 [id number] FREDDIE CAMPBELL MD [facility]OP[facility]I CS [facility] [address] [place] [address] 01/07/2021 13:14:56 01/07/2021 14:43:24 Postoperative care 481050052 Z48.89 Assessment : 2 weeks status post right IT band release and greater trochanter bursectomy Plan: Continue with physical therapy focus on core and posterior kinetic chain strengthen ing. Follow-up 4 weeks [id number] VERO CABRERA PT PHYSICAL THERAPY / HAND THERAPY [address] [place] [id number] 01/17/2021 09:01:08 01/17/2021 13:05:15 Iliotibial band friction syndrome 817358710 M76.31 History of orthopedic surgery 1677626085 9101 Z98.890 Pain of ri ght hip joint 4367814294 82323 M25.551 Stiffness of joint of right hip 3858182637 47821 M25.225 [id number] VERO CABRERA, PILAR PHYSICAL THERAPY / HAND THERAPY [address] [place] [id number] 01/24/2021 08:43:30 01/24/2021 10:12:04 Iliotibial band friction syndrome 494174795 M76.31 History of orthopedic surgery 0420442989 9101 Z98.890 Pain of ri ght hip joint 0107715443 44081 M25.551 Stiffness of joint of right hip 8110168154 18242 M25.097 [id number] VERO CABRERA PT PHYSICAL THERAPY / HAND THERAPY [address] [place] [id number] 02/07/2021 09:05:41 02/07/2021 13:04:45 Iliotibial band friction syndrome 703135858 M76.31 History of orthopedic surgery 5000686275 9101 Z98.890 Pain of ri ght hip joint 6591269462 99480 M25.551 Stiffness of joint of right hip 5963826498 14253 M25.218 [id number] FREDDIE CAMPBELL MD [facility]THOPEDI CS [facility] [address] [address] 02/11/2021 18:15:02 02/11/2021 18:57:40 Postoperative care 145414535 Z48.89 Assessment : 6 weeks status post right IT band release and greater trochanter bursectomy . The hip is doing well, primarily patellofem oral symptoms. Plan: Focus on gluteal and quad strengthen ing. I would recommend against jumping and running until her anterior knee pain dissipates . Follow-up 6 weeks. [id number] VERO CABRERA, PT PHYSICAL THERAPY / HAND THERAPY [address] [place] [address] 02/14/2021 09:05:20 02/14/2021 10:51:05 Iliotibial band friction syndrome 804276063 M76.31 History of orthopedic surgery 2792383297 9101 Z98.890 Pain of ri ght hip joint 4999961629 87955 M25.551 Stiffness of joint of right hip 3799582203 70097 M25.521 [id number] VERO CABRERA, PT PHYSICAL THERAPY / HAND THERAPY [address] [place] [address] 02/21/2021 09:00:58 02/21/2021 10:49:09 Iliotibial band friction syndrome 406627625 M76.31 History of orthopedic surgery 4996780699 9101 Z98.890 Pain of ri ght hip joint 1227634126 75652 M25.551 Stiffness of joint of right hip 4381893822 03588 M25.272 [id number] VERO CABRERA, PT PHYSICAL THERAPY / HAND THERAPY [address] [place] [address] 02/28/2021 09:01:03 02/28/2021 10:24:32 Iliotibial band friction syndrome 521234799 M76.31 History of orthopedic surgery 9520350106 9101 Z98.890 Pain of ri ght hip joint 9348336679 53707 M25.551 Stiffness of joint of right hip 5329862701 56916 M25.729 [id number] VERO CABRERA, PT PHYSICAL THERAPY / HAND THERAPY [address] [place] [id number] 03/07/2021 09:01:24 03/07/2021 10:16:40 Iliotibial band friction syndrome 593209523 M76.31 History of orthopedic surgery 5717401786 9101 Z98.890 Pain of ri ght hip joint 2536257621 29360 M25.551 Stiffness of joint of right hip 0354550880 31676 M25.127 [id number] VERO CABRERA, PT PHYSICAL THERAPY / HAND THERAPY [address] [place] [id number] 03/21/2021 09:01:06 03/21/2021 10:49:01 Iliotibial band friction syndrome 530380092 M76.31 History of orthopedic surgery 6738661576 9101 Z98.890 Pain of ri ght hip joint 9278239464 98723 M25.551 Stiffness of joint of right hip 7227284439 45463 M25.251 [id number] FREDDIE CAMPBELL MD [facility]THOPEDI CS [facility] [address] [place] [address] 03/24/2021 09:57:02 03/24/2021 12:46:48 Postoperative care 472898195 Z48.89 Assessment : 3 months status post [...] needed. Patellofem oral syndrome of right knee 3650340156 148017 M22.2X1 [id number] LIANET SAMANIEGO APRN GASTRO [address] [facility], [address] [place] [address] 07/17/2021 13:19:01 07/17/2021 15:06:01 Diarrhea 58285913 R19.7 Urea breath testingLAb s, stools, rule out infectious , inflammato ry diseaseAvo id NSAIDS, ASA products. Tylenol okay, follow dosing on bottle.Sma ll, frequent meals, avoid greasy, spicy foods. [place] diet.Follo w up 6 weeks. Call for any questions or concerns. patient and mother verbalized understand ing. Right lowe r quadrant pain 948153666 R10.31 Nausea 387628631 R11.0 [id number] LIANET SAMANIEGO KENNEL AIDE GASTRO [address] [facility], [place] [address] 07/22/2021 10:29:14 07/22/2021 12:02:30 Nausea 490907423 R11.0 [id number] FREDDIE CAMPBELL MD [facility]THOPEDI CS [facility] [address] [place] [address] 02/02/2022 11:26:17 02/02/2022 11:59:18 Greater trochanteric pain syndrome of right lower limb 2240145510 5079473 M70.61 Assessment : Trochanter ic bursitis with [...] recurrence . Physical therapy was prescribed today. [id number] LIANET SAMANIEGO APRN GASTRO [address] [facility], [address] [place] [address] 02/02/2022 13:47:24 02/24/2022 13:04:02 Right lower quadrant pain 741158783 R10.31 Diarrhea 06271637 R19.7 Urea breath testingLAb s, stools, rule out infectious , inflammato ry diseaseAvo id NSAIDS, ASA products. Tylenol okay, follow dosing on bottle.Sma ll, frequent meals, avoid greasy, spicy foods. [place] diet.Follo w up 6 weeks. Call for any questions or concerns. patient and mother verbalized understand ing. [id number] WILEY CUMMINGS MD GASTRO [address] [facility], [facility] [address] [place] [address] 03/01/2023 15:31:19 03/01/2023 16:18:29 Right lower quadrant pain 135638949 R10.31 Will arrange ileocolono scopy, obtain crp and esr. I have asked her to try to use dicyclomin e 1-2 times per day since symptom has been daily more recentlyWe also discussed possibilit y for abdominal wall painObtain CT scan and labs from recent ER visit this month [id number] WILEY CUMMINGS MD SURGERY SCHEDULE [address] [place] [address] 03/12/2023 08:01:30 03/12/2023 08:02:17 Abdominal pain 28293759 R10.9 [id number] WILEY CUMMINGS MD GASTRO [address] [facility], [place] [address] 04/14/2023 15:00:34 04/14/2023 16:16:46 Abdominal pain 24264170 R10.9 Stop dicyclomin e and start levsin 0.125 mg 2-3 times per dayWill arrange small bowel capsule studyIf no improvemen t with levsin, then stat low dose elavil if tolerated with her daily prozac useConside r referral for PT [id number] WILEY CUMMINGS MD GASTRO [address] [facility], [place] [address] 05/06/2023 07:57:21 05/06/2023 11:23:29 [id number] KRYSTLE MARINO [facility] [address] [place] [address] 06/10/2023 10:30:42 06/10/2023 11:12:26 Pain in pelvis 22490595 R10.2 urine dip with blood - will [...] dose slightly of COCalso discussed referral to ASSORTMENT PLANNER/MD for further evaluation - mother and patient concerned that pain is related to endometrio sis. [id number] KRYSTLE MARINO [facility] [address] [place] [address] 06/28/2023 08:24:01 06/28/2023 09:44:54 Pain in pelvis 44013552 R10.2 Discussed today's preliminar y ultrasound which is normal. No obvious reason for patient's pelvic pain.patie nt concerned that pain is related to endometrio sis.will refer patient to ASSORTMENT PLANNER/MD for further evaluation . [id number] DO JOHN SCHUSTER [place] [address] [place] [address] 07/07/2023 14:49:57 07/07/2023 15:32:39 Pain in pelvis 79381988 R10.2 given extensive negative work up with ongoing symptoms in the setting of menorrhagi a and dysmenorrh ea and a fhx of endometrio sis we discussed moving forward with more invasive work up with dx scope. patient agrees and she is ready for next steps. r/b/a discussed. patient getting in august, desires surgery in july if possible. will continue felipe for now Menorrhagia 385407486 N9 2.0 discussed in the future could explore cutting to 10mcg lo loestrin to see if pain improves. Dysmenorrhea 491626848 N 94.6 decently controlled with felipe [id number] EMEKA GARCIA DO SURGERY SCHEDULE [address] [place] [address] 07/30/2023 06:28:34 07/30/2023 06:29:15 Pain in pelvis 15171071 R10.2 given extensive negative work up with [...] s/p dx scope and bx x2 Menorrhagia 312075546 N9 2.0 discussed in the future could explore cutting to 10mcg lo loestrin to see if pain improves. Dysmenorrhea 972124158 N 94.6 decently controlled with felipe [id number] DO JOHN SCHUSTER [facility] [address] [place] [address] 08/13/2023 15:02:55 08/13/2023 15:23:43 Pain in pelvis 72531205 R10.2 given extensive negative work up with [...] pain resolved after surgery. continue felipe. Menorrhagia 001190389 N9 2.0 stable on felipe Dysmenorrhea 945501147 N 94.6 decently controlled with felipe, rx sent Postoperative pain 67122 9007 G89.18 patient is recovering appropriat douglas incisions are healing appropriat douglas call precaution s reviewed reviewed path endo schedule annual [id number] DO JOHN SCHUSTER [facility] [address] [place] [address] 12/22/2023 08:47:19 12/22/2023 09:46:43 Pain in pelvis 44006186 R10.2 given extensive negative work up with [...] in 3 months. call sooner if needed [id number] EMEKA GARCIA DO [facility] [address] [place] [address] 03/24/2024 14:42:16 03/25/2024 04:10:41 Pain in pelvis 19525152 R10.2 given extensive negative work up with [...] f/u in 3 months. call sooner if uopgbm37/1 09/30 currently on felipe. continue until starting to try then dc. Family zander nning surveillance 907601785 Z30.09 hand out reviewed and discussed/ questions answeredpl ans to stop felipe soon and start trying yuliya Endometrio sis of pelvis 55291051 N80.9 discussed possible pain management referral for [...] ID Guarantor Name 03/27/2024 1 [employer] [id number] Carlos Sahu [id number] 1 Kassie Sahu 02/12/2023 1 [employer] - [employer] [place] (MEDICAID REPLACEMENT - HMO) [id number] Kassie Sahu [id number] Kassie Sahu 12/22/2023 2 [employer] - [facility] (MEDICAID REPLACEMENT - HMO) [id number] Kassie Sahu [id number] 2 Kassie Sahu 02/12/2023 2 [employer] [id number] Kassie Sahu [id number] 1 Kassie Sahu 06/10/2023 1 [facility] ([place]PO) [id number] Carlos Sahu [id number] 1 Kassie Sahu Notes Date Note Type [...] or itching. EMEKA GARCIA DO [address] [place], [address], [facility] 07/07/2023 16:19:15 08/13/2023 text/html patient is in [...] is gone EMEKA GARCIA DO [address] [place], [address], [facility] 08/13/2023 15:47:07 12/22/2023 text/html patient in offic [...] or itching. EMEKA GARCIA DO [address] [place], [address], [facility] 12/22/2023 09:31:17 03/24/2024 text/html patient in offic [...] or itching. EMEKA GARCIA DO [address] [place], [address], [facility] 03/24/2024 16:18:06 OBGyn Episode No OBEpisode recorded.
--- NOTE | 2024-10-26 09:00 | US_ITS ---
PROCEDURE: US OB /MATERNAL DETAIL CLINICAL INDICATION: 20 wk Anatomy scan; schedule in 4 wks COMPARISON: US US OB <= 14 WEEKS FETUS from 08/15/2024 FINDINGS: Transabdominal sonographic images of the pelvis were obtained. From her established due date she is 20 weeks 5 days. Single viable intrauterine gestation. Cephalic position. Placenta: Anteriorplacenta grade 1. A placental Jeffrey is present. There is an average amount of fluid. The cervix appears satisfactory. Closed and measuring 3.89 cm in length. Complete survey performed and was unremarkable on the submitted images as in PACS. No discrete anomalies identified on survey imaging by technologist. Active fetus. Three-vessel cord with satisfactory umbilical cord insertion. 4- chamber heart noted. Situs, aortic arch, LVOT, RVOT, three-vessel view appear normal. Survey of brain & ventricles Unremarkable. Cerebellum, thalamus, choroid plexus, cisterna magna appear normal. Face and neck survey unremarkable. Profile, nasion, lips and nose appeared normal. Diaphragm and chest views unremarkable. Abdomen: Both kidneys noted and unremarkable. Stomach and bladder noted and satisfactory. Spine: Survey of the spine satisfactory with no anomalies identified nor imaged. Cervical, thoracic, lower spine appear normal. Both arms and legs noted. Amniotic Fluid: Adequate. MVP 5.57 cm Measurements: Average ultrasound age 22weeks 1day. Estimated due date by ultrasound age 1002/28/2025. Estimated weight 482g BPD = 22weeks 0 days HC = 21weeks 3days AC = 22weeks 4days FL = 22weeks 1day Growth Percentile= >98 Heart Rate = 139bpm Cerebellum = 20weeks 3days Humerus = 21weeks 6days HC/AC is 1.09 FL/BPD is 0.72 FL/AC is 0.22 IMPRESSION: 1. Viable fetus in the cephalic presentation with an anterior placenta grade 1. 2. The fluid is within normal limits with an MVP 5.57 cm. 3. Anatomical scan appears normal. 4. biometry is consistent with the dates. Dictated by: Paul Gao MD 10/26/2024 16:31 Paul Gao MD in OV 10/26/2024 16:31
== END 2024-10-26 23:59 | disposition home or self-care (01) ==
LOC: RAD 08:51
PROVIDERS: PCP Nurse Practitioner Family; Visit Provider Obstetrics & Gynecology
DX: Z34.02 Encounter for supervision of normal first pregnancy, second trimester (principal); Z3A.20 20 weeks gestation of pregnancy
CPT/HCPCS: 76811

== ENCOUNTER 2024-11-29 20:53 | Emergency (ER) | payer BC, SELFPAY ==
--- NOTE | 2024-11-29 20:50 | ECG_ITS ---
APPROVED REPORT Exam: Resting ECG HR:85 bpm ECG Measurements Heart Rate 85 AXES MN 123 P 69 QRSd 79 QRS 56 QT 333 T 44 QTc 375 Conclusion Normal sinus rhythm without acute ST or T wave changes concerning for ischemia Electronically signed by : Gayle Wagner, 11/30/2024 00:49:58
[2024-11-29 21:00] VITALS: BP 131/89; RESP 17; O2SAT 99
[2024-11-29 21:04] VITALS: BP 148/93; PULSE 93; RESP 22; TEMP 36.9; O2SAT 100; BMI 30.9
--- OUTSIDE RECORDS SUMMARY | 2024-11-29 21:10 | XMS_ITS | Data Portability ---
Author Organization [facility] [place] REENA Chambers [place] CLOSED Address [address] [facility] [address] [place] [address] Care Team Providers Care Order Filler Name Role Phone SHAHZAD STACY Primary Care Provider Assessment No assessment recorded. Plan of Treatment Reminders Order Date Submit Date Provider Last Modified By Organization Details Last Modified Time Details Appointments None recorded. Lab None recorded. Referral None recorded. Procedures None recorded. Surgeries laparoscopy , diagnostic (SURG) 2023 024 evonne wi10 [facility] Professional Charges, [facility], [facility] [address], [place], [address], 4 09:39:09 Imaging US, transvagina l 2023 024 [facility] Radiology Pulmonary, [address] [place], [address], 4 15:23:49 Medication Orders Larissia 0.1 mg-20 mcg tablet 2023 024 [facility], [address] [facility], [place], [address], 4 09:30:58 Larissia 0.1 mg-20 mcg tablet 2023 024 [facility], [address] [facility], [place], [address], 4 15:20:18 Patient TargetsNo targets recorded. Patient Instructions Encounter Date Encounter Id Patient Instructions Last Modified By Organization Details Last Modified Time 03/24/2024 [id number] pain management sneace Not available 03/24/2024 15:29:53 Reason for Referral None Reported. Results Created Date Observation Date Name Description Value Unit Range Abnormal Flag Note LastModifiedBy Organization Detail LastModifiedTime 06/10/19 24 06/10/2023 GENER AL HEALT H PANEL glucose 84 mg/dL 74-100 normal Not Available [facility] [address] [place] [address], [address], 06/10/2023 14:04:24 06/10/19 24 06/10/2023 GENER AL HEALT H PANEL blood urea nitrogen 6 mg/dL 6-20 normal Not Available [facility] [address] [place] [address], [address], 06/10/2023 14:04:24 06/10/19 24 06/10/2023 GENER AL HEALT H PANEL creatinine 0.92 mg/dL 0.50-0 .95 normal Not Available [facility] [address] [place] [address], [address], 06/10/2023 14:04:24 06/10/19 24 06/10/2023 GENER AL HEALT H PANEL BUN/creatini ne ratio 7 (calc ) 10-20 low Not Available [facility] [address] [place] [address], [address], 06/10/2023 14:04:24 06/10/19 24 06/10/2023 GENER AL HEALT H PANEL sodium 140 mmol/ L 136-14 5 normal Not Available [facility] [address] [place] [address], [address], 06/10/2023 14:04:24 06/10/19 24 06/10/2023 GENER AL HEALT H PANEL potassium 3.9 mmol/ L 3.4-5. 0 normal Not Available [facility] [address] [place] [address], [address], 06/10/2023 14:04:24 06/10/19 24 06/10/2023 GENER AL HEALT H PANEL chloride 107 mmol/ L 98-107 normal Not Available [facility] [address] [place] [address], [address], 06/10/2023 14:04:24 06/10/19 24 06/10/2023 GENER AL HEALT H PANEL carbon dioxide 21 mmol/ L 22-31 low Not Available [facility] [address] [place] [address], [address], 06/10/2023 14:04:24 06/10/19 24 06/10/2023 GENER AL HEALT H PANEL anion gap 12 (calc ) 7-25 normal Not Available [facility] [address] [place] [address], [address], 06/10/2023 14:04:24 06/10/19 24 06/10/2023 GENER AL HEALT H PANEL calcium 9.3 mg/dL 8.6-10 .2 normal Not Available [facility] [address] [place] [address], [address], 06/10/2023 14:04:24 06/10/19 24 06/10/2023 GENER AL HEALT H PANEL total protein 8.0 g/dL 6.4-8. 3 normal Not Available [facility] [address] [place] [address], [address], 06/10/2023 14:04:24 06/10/19 24 06/10/2023 GENER AL HEALT H PANEL albumin 4.5 g/dL 3.5-5. 2 normal Not Available [facility] [address] [place] [address], [address], 06/10/2023 14:04:24 06/10/19 24 06/10/2023 GENER AL HEALT H PANEL globulin 3.5 1.5-4. 5 normal Not Available [facility] [address] [place] [address], [address], 06/10/2023 14:04:24 06/10/19 24 06/10/2023 GENER AL HEALT H PANEL albumin/glob ulin ratio 1.3 (calc ) 1.1-2. 5 normal Not Available [facility] [address] [place] [address], [address], 06/10/2023 14:04:24 06/10/19 24 06/10/2023 GENER AL HEALT H PANEL bilirubin, total 0.4 mg/dL 0.1-1. 2 normal Not Available [facility] [address] [place], [address], 06/10/2023 14:04:24 06/10/19 24 06/10/2023 GENER AL HEALT H PANEL alkaline phosphatase 44 U/L 30-121 normal Not Available [facility] [address] [place], [address], 06/10/2023 14:04:24 06/10/19 24 06/10/2023 GENER AL HEALT H PANEL AST 23 U/L 0-32 normal Not Available [facility] [address] [place], [address], 06/10/2023 14:04:24 06/10/19 24 06/10/2023 GENER AL HEALT H PANEL ALT 15 U/L 0-33 normal Not Available [facility] [address] [place] [address], [address], 06/10/2023 14:04:24 06/10/19 24 06/10/2023 GENER AL HEALT H PANEL GFR 92 >= 60 normal NOT E New calcu latio n for GFR (CKD- EPI 2020) is formu lated witho ut race adjus tment facto rs at the recom menda tion of the [facility] [employer] [facility] and Nayely French ty of Nephr ology . This calcu latio n has not been valid ated in pregn ant women . For pedia lorena patie nts refer to https ://shena garcia.o rg/pr ofess ional s/KDO QI/gf r_cal culat orPed Not Available [facility] [address] [place] [address], [address], 06/10/2023 14:04:24 06/10/19 24 06/10/2023 GENER AL HEALT H PANEL white blood cells 6.0 10*3/ uL 3.8-10 .8 normal Not Available [facility] [address] [place] [address], [address], 06/10/2023 14:04:24 06/10/19 24 06/10/2023 GENER AL HEALT H PANEL red blood cells 4.42 10*6/ uL 3.80-5 .20 normal Not Available [facility] [address] [place] [address], [address], 06/10/2023 14:04:24 06/10/19 24 06/10/2023 GENER AL HEALT H PANEL hemoglobin 13.7 g/dL 12.0-1 6.0 normal Not Available [facility] [address] [place] [address], [address], 06/10/2023 14:04:24 06/10/19 24 06/10/2023 GENER AL HEALT H PANEL hematocrit 39.9 % 35.0-4 7.0 normal Not Available [facility] [address] [place] [address], [address], 06/10/2023 14:04:24 06/10/19 24 06/10/2023 GENER AL HEALT H PANEL MCV 90 fL 80-100 normal Not Available [facility] [address] [place] [address], [address], 06/10/2023 14:04:24 06/10/19 24 06/10/2023 GENER AL HEALT H PANEL MCH 31 pg 26-35 normal Not Available [facility] [address] [place] [address], [address], 06/10/2023 14:04:24 06/10/19 24 06/10/2023 GENER AL HEALT H PANEL MCHC 34 g/dL 32-36 normal Not Available [facility] [address] [place] [address], [address], 06/10/2023 14:04:24 06/10/19 24 06/10/2023 GENER AL HEALT H PANEL RDW 13.2 % 11.0-1 5.0 normal Not Available [facility] [address] [place] [address], [address], 06/10/2023 14:04:24 06/10/19 24 06/10/2023 GENER AL HEALT H PANEL MPV 8.4 fL 6.2-10 .5 normal Not Available [facility] [address] [place] [address], [address], 06/10/2023 14:04:24 06/10/19 24 06/10/2023 GENER AL HEALT H PANEL platelet count 324 10*3/ uL 150-40 0 normal Not Available [facility] [address] [place] [address], [address], 06/10/2023 14:04:24 06/10/19 24 06/10/2023 GENER AL HEALT H PANEL neutrophil,a bsolute 3.7 10*3/ uL 1.6-8. 4 normal Not Available [facility] [address] [place] [address], [address], 06/10/2023 14:04:24 06/10/19 24 06/10/2023 GENER AL HEALT H PANEL lymphocyte,a bsolute 1.6 10*3/ uL 0.4-5. 1 normal Not Available [facility] [address] [place] [address], [address], 06/10/2023 14:04:24 06/10/19 24 06/10/2023 GENER AL HEALT H PANEL monocyte,abs olute 0.5 10*3/ uL 0.0-1. 2 normal Not Available [facility] [address] [place] [address], [address], 06/10/2023 14:04:24 06/10/19 24 06/10/2023 GENER AL HEALT H PANEL eosinophil,a bsolute 0.1 10*3/ uL 0.0-0. 8 normal Not Available [facility] [address] [place] [address], [address], 06/10/2023 14:04:24 06/10/19 24 06/10/2023 GENER AL HEALT H PANEL basophil,abs olute 0.1 10*3/ uL 0.0-0. 3 normal Not Available [facility] [address] [place] [address], [address], 06/10/2023 14:04:24 06/10/19 24 06/10/2023 GENER AL HEALT H PANEL % neutrophils 62.4 % 42.0-7 8.0 normal Not Available [facility] [address] [place] [address], [address], 06/10/2023 14:04:24 06/10/19 24 06/10/2023 GENER AL HEALT H PANEL % lymphocytes 27.1 % 11.0-4 7.0 normal Not Available [facility] [address] [place] [address], [address], 06/10/2023 14:04:24 06/10/19 24 06/10/2023 GENER AL HEALT H PANEL % monocytes 7.7 % 0.0-11 .0 normal Not Available [facility] [address] [place] [address], [address], 06/10/2023 14:04:24 06/10/19 24 06/10/2023 GENER AL HEALT H PANEL % eosinophils 1.9 % 0.0-7. 0 normal Not Available [facility] [address] [place] [address], [address], 06/10/2023 14:04:24 06/10/19 24 06/10/2023 GENER AL HEALT H PANEL % basophils 0.9 % 0.0-3. 0 normal Not Available [facility] [address] [place] [address], [address], 06/10/2023 14:04:24 06/10/19 24 06/10/2023 GENER AL HEALT H PANEL nucleated red cells 0.1 % 0.0-0. 9 normal Not Available [facility] [address] [place] [address], [address], 06/10/2023 14:04:24 06/10/19 24 06/10/2023 GENER AL HEALT H PANEL nucleated RBCs, absolute 0.00 10*3/ uL not estab. normal Not Available [facility] [address] [place] [address], [address], 06/10/2023 14:04:24 06/10/19 24 06/10/2023 GENER AL HEALT H PANEL TSH 8.470 u[IU] /mL 0.270- 4.200 high Not Available [facility] [address] [place] [address], [address], 06/10/2023 14:04:24 06/10/19 24 06/10/2023 FOLLI DORIAN [...] - 134.8 MIU/M L . Not Available [facility] [address] [place] [address], [address], 06/10/2023 14:04:18 06/10/19 24 06/10/2023 LUTEN IZING HORMO NE lutenizing hormone 5.3 m[IU] /mL 1.0-95 .6 normal LH EXPEC LUCIA VALUE S WOMEN : FOLLI CULAR PHASE 2.4-1 2.6 mIU/m L OVULA TION PHASE 14.0- 95.6 mIU/m L LUTEA L PHASE 1.0-1 1.4 mIU/m L POSTM ENOPA USE 7.7-5 8.5 mIU/m L . Not Available [facility] [address] [place], [address], 06/10/2023 14:04:20 06/10/19 24 06/10/2023 PROGE STERO [...] 58.7 - 214.0 ng/mL . Not Available [facility] [address] [place], [address], 06/10/2023 14:04:22 06/10/19 24 06/10/2023 DHEA SULFA TE DHEA sulfate 349.0 ug/dL 65.1-3 68.0 normal Not Available [facility] [address] [place], [address], 06/10/2023 14:04:26 06/10/19 24 06/10/2023 ESTRA DIOL [...] > 30,00 0 pg/mL . Not Available [facility] [address] [place], [address], 06/10/2023 14:04:28 06/10/19 24 06/14/2023 URINE CULTU RE urine culture ISOLA TE #1 COLON Y COUNT : 10,00 0 - 100,0 00 CFU/M L Minut e alpha colon y; proba ble Lacto bacil nataly. Not Available [facility] [address] [place], [address], 06/14/2023 14:48:21 06/10/19 24 06/10/2023 urina lysis panel , auto Unknown Analyte 250 Jamaal/ul Not Available [facility], [place], [address], 06/10/2023 11:49:44 06/10/19 24 06/10/2023 urina lysis panel , auto Unknown Analyte Negati ve Not Available [address], [place], [address], 06/10/2023 11:49:44 06/10/19 24 06/10/2023 urina lysis panel , auto Unknown Analyte Normal Not Available [address], [place], [address], 06/10/2023 11:49:44 06/10/19 24 06/10/2023 urina lysis panel , auto Unknown Analyte Negati ve Not Available [address], [place], [address], 06/10/2023 11:49:44 06/10/19 24 06/10/2023 urina lysis panel , auto Unknown Analyte Normal Not Available [address], [place], [address], 06/10/2023 11:49:44 06/10/19 24 06/10/2023 urina lysis panel , auto Unknown Analyte Negati ve Not Available [address], [place], [address], 06/10/2023 11:49:44 06/10/19 24 06/10/2023 urina lysis panel , auto Unknown Analyte Negati ve Not Available [address], [place], [address], 06/10/2023 11:49:44 06/10/19 24 06/10/2023 urina lysis panel , auto Unknown Analyte Negati ve Not Available [address], [place], [address], 06/10/2023 11:49:44 06/10/19 24 06/10/2023 urina lysis panel , auto Unknown Analyte Clean Catch Not Available [address], [place], [address], 06/10/2023 11:49:44 06/10/19 24 06/10/2023 urina lysis panel , auto Unknown Analyte Yellow Not Available [address], [place], [address], 06/10/2023 11:49:44 06/10/19 24 06/10/2023 urina lysis panel , auto Unknown Analyte Slight ly Hazy Not Available [address], [place], [address], 06/10/2023 11:49:44 06/10/19 24 06/10/2023 urina lysis panel , auto Unknown Analyte 7.0 Not Available [address], [place], [address], 06/10/2023 11:49:44 06/10/19 24 06/10/2023 urina lysis panel , auto Unknown Analyte 1.005 Not Available [address], [place], [address], 06/10/2023 11:49:44 07/30/19 24 07/30/2023 SURGI KHUSHBU [...] 15:18 Page 1 of 1 Not Available [facility] [address] [place], [address], 08/02/2023 15:18:24 06/28/19 24 06/28/2023 US, trans vagin al [facility] [address] [place] [address] Patien t Name: KASSIE Hebert t : 004 Patien t Orderi ng Provid er: AMADOR LÓPEZ GTON EXAM DATE: 2023 EXAM: US PELVIS COOK SOUP TRANSV AGINAL CLINIC AL INFORM ATION: Right [...] ly Signed By: Jeremy Owens MD on 024 10:24 AM [facility] [address], [place], [address], 07/01/2023 10:43:39 03/24/20 24 03/24/2024 US, trans vagin al [facility] [address] [place] [address] Patien t Name: KASSIE SAHU Patien t : 004 Patien t Orderi ng [facility] er: EMEKA GARCIA EXAM DATE: 2023 EXAM: US PELVIS COOK SOUP TRANSV AGINAL CLINIC AL INFORM ATION: Pain [...] Aguirre MD on 2023 3:18 PM sneace [facility] [address], [place], [address], 03/24/2024 16:13:54 Result Notes None recorded. Problems Name Problem SNOMED Code Status Onset Date Resolution Date Notes Provider Name and Address Organization Details Recorded Time Hypertrop hy of tonsils AND adenoids 80688992 Active 2015 From Automated Load;Prov ider: Thee Barreto;Statu s: Active Not Available [facility] 6 04:39:59 Disorder of thyroid gland 55969216 Active 2015 From Automated Load;Prov ider: Thee Barreto;Statu s: Active Not Available [facility] 6 04:39:59 Chronic tonsillit is 36247148 Active 2015 From Automated Load;Prov ider: Thee Barreto;Statu s: Active Not Available [facility] 6 04:40:03 Pain of right hip joint 94053412049 9102 Active 2019 MELANIE VINSON, PT [address] [place], [address] , [facility] 0 18:56:48 Pain of left hip joint 99723037590 9100 Active 2019 MELANIE VINSON, PT [address] [place], [address] , [facility] 0 18:56:50 Muscle weakness 43545504 Active 2019 MELANIE VINSON, PT [address] [place], [address] , [facility] 0 18:56:53 Abnormal gait 36397611 Active 2019 MELANIE VINSON, PT [address] [place], [address] , [facility] 0 18:56:54 Problem Notes None recorded. Procedures Surgical History Date Name Laterality Status Provider Name and Address Organization Details Recorded Time 07/30/19 24 Salpingectomy, Laparoscopy completed EMEKA NEACE, DO [address] [place], [address], [facility] 07/30/2023 11:03:52 05/06/20 23 Capsule Endoscopy completed Cordelia Mirza [facility] 05/06/2023 08:18:54 07/23/19 22 UREA Breath Test completed Christine Miguel [facility] 07/22/2021 10:31:17 04/11/20 21 PT Therapeutic Exercise cancelled VERO CABRERA, PT [address] [place], [address], [facility] 03/13/2021 07:20:37 03/21/20 21 PT Therapeutic Exercise completed VERO CABRERA, PT [address] [place], [address], [facility] 03/19/2021 07:35:34 03/07/20 21 PT Therapeutic Exercise completed VERO CABRERA, PT [address] [place], [address], [facility] 03/07/2021 09:31:40 02/29/20 21 PT Therapeutic Exercise completed VERO CABRERA, PT [address] [place], [address], [facility] 02/27/2021 07:30:53 02/22/20 21 PT Therapeutic Exercise completed VERO CABRERA, PT [address] [place], [address], [facility] 02/21/2021 07:22:03 02/15/20 21 PT Therapeutic Exercise completed VERO CABRERA, PT [address] [place], [address], [facility] 02/14/2021 09:30:18 02/08/20 21 PT Therapeutic Exercise completed VERO CABRERA, PT [address] [place], [address], [facility] 02/06/2021 07:55:18 01/31/20 21 PT Therapeutic Exercise cancelled VERO CABRERA, PT [address] [place], [address], [place] [facility] 01/29/2021 07:27:42 01/25/20 21 PT Therapeutic Exercise completed VERO CABRERA, PT [address] [place], [address], [facility] 01/23/2021 07:42:01 01/18/20 21 PT Manual Therapy completed VERO VOYNAR, PT [address] [place], [address], [facility] 01/15/2021 07:54:45 01/18/20 21 PT Therapeutic Exercise completed VERO CAICEDOYNAR, PT [address] [place], [address], [facility] 01/17/2021 10:23:25 01/04/20 21 PT Manual Therapy completed VERO CABRERA, PT [address] [place], [address], [facility] 01/03/2021 09:37:55 01/04/20 21 PT Therapeutic Exercise completed VERO CABRERA, PT [address] [place], [address], [facility] 01/02/2021 07:21:43 12/28/19 21 PT Evaluation - Moderate Complexity completed VERO CABRERA, PT [address] [place], [address], [facility] 12/27/2020 09:05:08 12/28/19 21 PT Manual Therapy completed VERO CABRERA, PT [address] [place], [address], [facility] 12/27/2020 09:06:05 12/28/19 21 PT Therapeutic Exercise completed VERO MOOREAR, PT [address] [place], [address], [facility] 12/27/2020 09:05:10 12/20/19 21 Orthopedic Surgery completed Horacio Skelton [facility] 01/07/2021 13:18:53 09/17/19 21 Injection Joint/Bursa, Major completed FREDDIE CAMPBELL MD [address] [place], [address], [facility] 09/16/2020 12:52:18 06/07/19 21 PT Therapeutic Exercise completed MELANIE VINSON, PT [address] [place], [address], [facility] 06/07/2020 15:43:43 05/24/19 21 PT Therapeutic Exercise completed MELANIE VINSON, PT [address] [place], [address], [facility] 05/24/2020 14:34:55 04/26/20 20 PT Therapeutic Exercise completed MELANIE VINSON, PT [address] [place], [address], [facility] 04/26/2020 13:10:15 04/11/20 20 PT Evaluation - Low Complexity completed MELANIE VINSON, PT [address] [place], [address], [facility] 04/11/2020 18:49:34 04/11/20 20 PT Therapeutic Exercise completed MELANIE VINSON, PT [address] [place], [address], [facility] 04/11/2020 18:49:54 09/05/19 20 OT Therapeutic Exercise completed VERO WALDROP OTR/L, CHT [address] [place], [address], [facility] 09/05/2019 14:43:06 09/05/19 20 OT Manual Therapy completed VERO WALDROP OTR/L, CHT [address] [place], [address], [facility] 09/05/2019 13:59:00 08/25/19 20 OT Therapeutic Exercise completed VERO WALDROP OTR/L, CHT [address] [place], [address], [facility] 08/25/2019 12:34:06 07/27/19 20 OT Therapeutic Exercise completed VERO WALDROP OTR/L, CHT [address] [place], [address], [facility] 07/27/2019 12:05:11 07/27/19 20 OT Manual Therapy completed VERO WALDROP, OTR/L, CHT [address] [place], [address], [facility] 07/27/2019 11:27:54 07/27/19 20 PT Paraffin Bath completed VERO WALDROP, OTR/L, CHT [address] [place], [address], [facility] 07/27/2019 11:27:54 07/20/19 20 OT Therapeutic Exercise completed VERO WALDROP, OTR/L, CHT [address] [place], [address], [facility] 07/20/2019 11:59:41 07/20/19 20 OT Manual Therapy completed VERO WALDROP, OTR/L, CHT [address] [place], [address], [facility] 07/20/2019 11:16:00 07/20/19 20 PT Paraffin Bath completed VERO WALDROP, OTR/L, CHT [address] [place], [address], [facility] 07/20/2019 11:16:00 07/13/19 20 OT Therapeutic Exercise completed VERO WALDROP, OTR/L, CHT [address] [place], [address], [facility] 07/13/2019 11:59:49 07/13/19 20 OT Manual Therapy completed VERO WALDROP, OTR/L, CHT [address] [place], [address], [facility] 07/13/2019 11:05:15 07/13/19 20 PT Paraffin Bath completed VERO WALDROP, OTR/L, CHT [address] [place], [address], [facility] 07/13/2019 11:05:15 07/07/19 20 OT Therapeutic Exercise completed VERO WALDROP, OTR/L, CHT [address] [place], [address], [facility] 07/07/2019 09:38:11 07/07/19 20 OT Manual Therapy completed VERO WALDROP, OTR/L, CHT [address] [place], [address], [facility] 07/07/2019 08:53:52 07/07/19 20 PT Paraffin Bath completed VERO WALDROP OTR/L, CHT [address] [place], [address], [facility] 07/07/2019 08:53:52 06/30/19 20 OT Evaluation - Moderate complexity completed VERO WALDROP OTR/L, CHT [address] [place], [address], [facility] 06/30/2019 16:19:46 06/30/19 20 OT Therapeutic Exercise completed VERO WALDROP OTR/L, CHT [address] [place], [address], [facility] 06/30/2019 16:26:13 06/30/19 20 OT Manual Therapy completed VERO WALDROP OTR/L, CHT [address] [place], [address], [facility] 06/30/2019 16:26:12 06/30/19 20 PT Paraffin Bath completed VERO WALDROP OTR/L, CHT [address] [place], [address], [facility] 06/30/2019 16:26:06 06/27/19 20 Orthotic, WHO, Static Custom completed VERO WALDROP OTR/L, CHT [address] [place], [address], [facility] 06/27/2019 13:52:42 06/20/19 20 Orthotic, EWHO, Static Custom completed VERO WALDROP OTR/L, CHT [address] [place], [address], [facility] 06/20/2019 16:14:00 06/12/19 20 Op Note completed RIVAS BREAUX MD [address] [place], [address], [facility] 06/12/2019 12:00:49 01/25/20 18 Spirometry completed [facility] [facility]24[facility]2018 10:59:57 01/25/20 18 Allergy Testing completed Nara Brock [facility] 01/24/2018 10:59:50 01/07/20 18 Cerumen removal - Instruments, Bilateral completed Neelam Tejada [facility] 01/06/2018 10:35:08 Adenoidectomy completed Kendy [facility] 01/06/2018 09:56:29 Tonsillectomy completed Kendy [facility] 01/06/2018 09:56:37 Imaging Results None recorded. Procedure Notes None recorded. Medical Equipment None Reported. Allergies Allergen ID Allergen Name Allergen Category Reaction Reaction Severity Criticality Documentation Date Start Date Code Code System Note Provider Name and Address Organization Details Recorded Time 071009 Omnicef medicatio n Not available Not available Not available 04/03/20162015 07269 RxNorm Comme nt: Nadir ed By: Wade gordillo Date: 2015 11:04 :02 AM; Not Available [facility] 6 10:11:41 Medications Name Sig Start Date [...] 88-0.225 gram tablet Take as directed Run farazin g coupon COB with patient insuranc e for $40 OOP. No PA required if run this way regardle ss of coverage status. Bin: [id number] PCN: CN Group: [id number] ID: [id number] 331. 03/24 completed Not Available Not Available Not Available Vitals Date Recorded Body height Body mass index (BMI) [Percentile] Per age and sex Body mass index (BMI) Body weight Systolic And Diastolic Provider Name and Address Organization Details Last Updated DateTime 07/07/2023 165.1 cm 75 % 24.4 kg/m2 92387.2 9 g 116/70 mm[Hg] [facility] 4 14:54:49 Date Recorded Body height Body mass index (BMI) [Percentile] Per age and sex Body mass index (BMI) Body weight Systolic And Diastolic Provider Name and Address Organization Details Last Updated DateTime 08/13/2023 165.1 cm 74 % 24.3 kg/m2 44841.4 9 g 112/68 mm[Hg] Anh [facility] 4 15:05:51 Date Recorded Body height Body mass index (BMI) [Percentile] Per age and sex Body mass index (BMI) Body weight Systolic And Diastolic Provider Name and Address Organization Details Last Updated DateTime 12/22/2023 165.1 cm 85 % 26.5 kg/m2 96966.8 9 g 112/64 mm[Hg] Anh [facility] 4 09:02:37 Date Recorded Body height Body mass index (BMI) [Percentile] Per age and sex Body mass index (BMI) Body weight Systolic And Diastolic Provider Name and Address Organization Details Last Updated DateTime 03/24/2024 165.1 cm 85 % 26.7 kg/m2 55841.5 8 g 110/64 mm[Hg] Clare Hernandez [facility] 4 15:07:59 Social History Question Answer Notes LastModified by Organizat ion Details LastModified Time Tobacco Smoking Status Never Smoker FREDDIE CAMPBELL MD [address] [place] [address], [id number], [facility] 02/02/2022 11:34:36 Which Of Your Hands Is Dominant? Right Information not available 06/06/2019 Lives With Parents Yes [email or web address] Information not available 01/06/2018 Exposure To Smoke No [email or web address] Information not available 01/06/2018 What Was The [...] LastModified Time Mother Disorder of thyroid gland [email or web address] Not available 01/06 09:55:02 Mother Hypertensive disorder [email or web address] Not available 01/06 09:55:12 Maternal Grandmother Disorder of thyroid gland [email or web address] Not available 01/06 09:55:02 Paternal Grandmother Disorder of thyroid gland [email or web address] Not available 01/06 09:55:02 Father Hypertensive disorder [email or web address] Not available 01/06 09:55:12 Father Diabetes mellitus [email or web address] Not available 01/06 09:55:33 Paternal Grandfather Family history of stroke [email or web address] Not available 01/06 09:55:25 Medical History Condition [...] N Immune System Disorder N Heart Attack ([place]) N Mental Illness N Neurological Problems N [...] Hep B, adult 10/12/2022 completed Shahana Gant [facility] 10/13/2022 09:51:15 Hep B, adult 11/13/2022 completed Shahana Gant [facility] 11/13/2022 13:45:55 Influenza, split virus, quadrivalent, PF 02/04/2023 completed Dania Iraheta [facility] 02/05/2023 13:22:34 Past Encounters Encounter ID Performer Location Encounter Start Date Encounter Closed Date Diagnosis/Indication Diagnosis SNOMED-CT Code Diagnosis ICD10 Code Diagnosis Note [id number] MD JOSHUA RODRÍGUEZ [facility] [address] [place] [address] 01/06/2018 09:26:00 01/12/2018 08:25:46 Allergic rhinitis 44331515 J30.9 -allergy tested 2007 Dr. Carranza = + foods, ? inhalant results Headache 74788184 R51 -frontal, ? sinus etiology Hypertroph y of nasal turbinates 96167253 J34.3 Impacted cerumen 1859830 6 H61.23 -bilateral cerumenect tova 01/06/18 Dysfunctio n of eustachian tube 49755982 H69.93 [id number] MD JOSHUA RODRÍGUEZ [address]NT [address] [place] [address] 01/24/2018 09:15:27 01/24/2018 11:02:31 [id number] MD JOSHUA RODRÍGUEZ RD [address] [place] [address] 01/24/2018 11:01:45 01/24/2018 13:17:48 Allergic rhinitis 39865083 J30.9 -allergy tested 2007 Dr. Carranza = + foods, ? 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 No obvious bone abnormalit y. There does appear to be some signal abnormalit y within the TFCC, but difficult to determine if this is a tear. The ulnar foveal attachment appears intact. 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 The ulnar foveal attachment appears intact. 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 The ulnar foveal attachment appears intact. 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 Sara payan on precaution s discussed at length. Scar massage discussed. She will return to office to see Dr. Breaux in 4 weeks. RTO as scheduled or sooner if needed, advised to call office with any questions/ concerns. 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 The ulnar foveal attachment appears intact. 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 860026194 S69.81XD TFCC Debridemen t [id number] MARGARET MANZO/L, CHT PHYSICAL THERAPY / [facility] TH[facility]APY [facility] [address] [place] [address] 07/07/2019 08:15:56 07/07/2019 13:21:44 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 242005894 S69.81XD TFCC Debridemen t [id number] MARGARET MANZO/L, CHT PHYSICAL THERAPY / HAND THERAPY [facility] [address] [place] [address] 07/13/2019 10:50:18 07/13/2019 14:11:09 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 312784282 S69.81XD TFCC Debridemen t [id number] MARGARET MANZO/L, CHT PHYSICAL THERAPY / [facility]APY [facility] [address] [place] [address] 07/20/2019 11:03:13 07/20/2019 13:04:47 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 650073221 S69.81XD TFCC Debridemen t [id number] RIVAS BREAUX MD ORTHOPEDI CS [address] [place] [address] 07/25/2019 13:18:01 07/25/2019 14:10:42 Postoperative care 046382444 Z48.89 6 weeks s/p Right wrist arthroscop ic TFCC debridemen t (DOS: 06/12/2019) [id number] MARGARET MANZO/L, CHT PHYSICAL THERAPY / HAND TH[facility]APY [facility] [address] [place] [address] 07/27/2019 11:06:53 07/27/2019 12:54:01 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 134116924 S69.81XD TFCC Debridemen t [id number] MARGARET MANZO/Ellen, CHT PHYSICAL THERAPY / HAND TH[facility]APY [facility] [address] [place] [address] 08/25/2019 12:19:33 08/28/2019 08:57:02 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 856159097 S69.81XD TFCC Debridemen t [id number] RIVAS BREAUX MD ORTHOPEDI CS [facility] [address] [place] [address] 09/05/2019 10:17:31 09/05/2019 13:29:33 Postoperative care 354764196 Z48.89 12 weeks s/p Right wrist arthroscop ic TFCC debridemen t (DOS: 06/12/2019) [id number] MARGARET MANZO/L, CHT PHYSICAL THERAPY / HAND THERAPY [facility] [address] [place] [address] 09/05/2019 13:50:06 09/05/2019 15:26:56 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 629243204 S69.81XD [facility] Debridemen t [id number] MAX WALTON OR[facility]I [facility] [address] [place] [address] 03/25/2020 09:37:04 03/25/2020 10:20:09 Pain of hip region 63986356 M25.551 M25.552 Iliotibial band friction syndrome 659279355 M76.30 Trochanter ic bursitis of left hip 1595853890 64637 M70.62 Trochanter ic bursitis of right hip 0517952801 47831 M70.61 [id number] MELANIE VINSON, PT PHYSICAL THERAPY / HAND THERAPY [facility] [address] [place] [address] 04/11/2020 15:28:43 04/11/2020 18:57:17 Pain of right hip joint 6704426536 53480 M25.551 Pain of le ft hip joint 4420090046 44259 M25.552 Muscle weakness 38670440 M62.81 Abnormal gait 31074948 R 26.9 [id number] MELANIE VINSON, PT PHYSICAL THERAPY / HAND THERAPY [facility] [address] [place] [address] 04/26/2020 10:14:50 04/26/2020 13:33:34 Pain of left hip joint 6676585167 69426 M25.552 Pain of ri ght hip joint 1555518569 39929 M25.551 Muscle weakness 91130096 M62.81 Abnormal gait 76360989 R 26.9 [id number] MAX WALTON [facility] [address] [place] [address] 05/24/2020 10:27:19 05/24/2020 12:18:58 Tendinitis of right hip adductor muscle 0246197554 974219 M67.878 [id number] MELANIE VINSON, PT PHYSICAL THERAPY / HAND THERAPY [facility] [address] [place] [address] 05/24/2020 10:26:41 05/24/2020 15:30:56 Pain of left hip joint 0612503349 73554 M25.552 Pain of ri ght hip joint 3894008633 01975 M25.551 Muscle weakness 21492985 M62.81 Abnormal gait 39161843 R 26.9 [id number] MELANIE VINSON, PT PHYSICAL THERAPY / HAND THERAPY [facility] [address] [place] [address] 06/07/2020 10:51:12 06/07/2020 16:09:30 Muscle weakness 93469940 M62.81 Pain of le ft hip joint 3155445295 30648 M25.552 Abnormal gait 08448157 R 26.9 Pain of ri ght hip joint 3702179235 53028 M25.977 [id number] MAX W[facility] [address] [place] [address] 09/13/2020 09:52:21 09/13/2020 10:29:28 Pain of right hip joint 7273744695 86189 M25.304 [id number] FREDDIE CAMPBELL MD ORTHOPEDI [facility] [address] 09/16/2020 10:25:44 09/16/2020 12:08:51 Tendinitis of right gluteal tendon 3581588910 85342 M76.01 A: Right gluteal tendinitis , snapping [...] to improve strength and prevent recurrence . [id number] FREDDIE CAMPBELL MD ORTHOPEDI [facility] [address] [place] [address] 12/10/2020 10:30:38 12/10/2020 11:39:58 Tendinitis of right gluteal tendon 0751742537 91459 M76.01 A: Right gluteal tendinitis , snapping [...] answered. Trochanter ic bursitis of right hip 3000941290 96849 M70.61 [id number] FREDDIE CAMPBELL MD SURGERY SCHEDULE [address] [place] [address] 12/19/2020 06:26:55 12/19/2020 06:27:57 Postoperative care 845977148 Z48.89 [id number] VERO CABRERA, PT PHYSICAL THERAPY / HAND THERAPY [address] [place] [address] 12/27/2020 07:58:00 12/27/2020 09:20:36 Iliotibial band friction syndrome 026192015 M76.31 History of orthopedic surgery 5312769468 9101 Z98.890 Pain of ri ght hip joint 1161993085 32084 M25.551 Stiffness of joint of right hip 8997472318 55456 M25.904 [id number] VERO CABRERA, PT PHYSICAL THERAPY / HAND THERAPY [address] [place] [address] 01/03/2021 08:53:00 01/03/2021 14:57:36 Iliotibial band friction syndrome 544745177 M76.31 History of orthopedic surgery 0295145275 9101 Z98.890 Pain of ri ght hip joint 1654207740 55981 M25.551 Stiffness of joint of right hip 1845170828 58867 M25.436 [id number] FREDDIE CAMPBELL MD ORTHOPEDI CS [facility] [address] [address] 01/07/2021 13:14:56 01/07/2021 14:43:24 Postoperative care 932854088 Z48.89 Assessment : 2 weeks status post right IT band release and greater trochanter bursectomy Plan: Continue with physical therapy focus on core and posterior kinetic chain strengthen ing. Follow-up 4 weeks [id number] VERO CABRERA, PT PHYSICAL THERAPY / HAND THERAPY [address] [place] [address] 01/17/2021 09:01:08 01/17/2021 13:05:15 Iliotibial band friction syndrome 237667803 M76.31 History of orthopedic surgery 3620412319 9101 Z98.890 Pain of ri ght hip joint 7217696149 68010 M25.551 Stiffness of joint of right hip 4858347246 49289 M25.881 [id number] VERO CABRERA, PT PHYSICAL THERAPY / HAND THERAPY [address] [place] [address] 01/24/2021 08:43:30 01/24/2021 10:12:04 Iliotibial band friction syndrome 930329229 M76.31 History of orthopedic surgery 8470044527 9101 Z98.890 Pain of ri ght hip joint 3244794858 06138 M25.551 Stiffness of joint of right hip 0433743191 16916 M25.097 [id number] VERO CABRERA, PT PHYSICAL THERAPY / HAND THERAPY [address] [place] [address] 02/07/2021 09:05:41 02/07/2021 13:04:45 Iliotibial band friction syndrome 935912653 M76.31 History of orthopedic surgery 7471903901 9101 Z98.890 Pain of ri ght hip joint 9912817087 35626 M25.551 Stiffness of joint of right hip 3114756477 39732 M25.945 [id number] FREDDIE CAMPBELL MD [facility]THOPEDI [facility] [address] [place] [address] 02/11/2021 18:15:02 02/11/2021 18:57:40 Postoperative care 974584081 Z48.89 Assessment : 6 weeks status post right IT band release and greater trochanter bursectomy . The hip is doing well, primarily patellofem oral symptoms. Plan: Focus on gluteal and quad strengthen ing. I would recommend against jumping and running until her anterior knee pain dissipates . Follow-up 6 weeks. [id number] VERO CABRERA, PT PHYSICAL THERAPY / HAND THERAPY [address] [place] [address] 02/14/2021 09:05:20 02/14/2021 10:51:05 Iliotibial band friction syndrome 366293442 M76.31 History of orthopedic surgery 4174565036 9101 Z98.890 Pain of ri ght hip joint 3993536675 80358 M25.551 Stiffness of joint of right hip 2216951528 36316 M25.433 [id number] VERO CABRERA, PT PHYSICAL THERAPY / HAND THERAPY [address] [place] [address] 02/21/2021 09:00:58 02/21/2021 10:49:09 Iliotibial band friction syndrome 133995847 M76.31 History of orthopedic surgery 3463593358 9101 Z98.890 Pain of ri ght hip joint 6843909827 44581 M25.551 Stiffness of joint of right hip 7250995793 98584 M25.160 [id number] VERO CABRERA, PT PHYSICAL THERAPY / HAND THERAPY [address] [place] [address] 02/28/2021 09:01:03 02/28/2021 10:24:32 Iliotibial band friction syndrome 845511352 M76.31 History of orthopedic surgery 4128050906 9101 Z98.890 Pain of ri ght hip joint 2635861682 29161 M25.551 Stiffness of joint of right hip 8806860057 05068 M25.997 [id number] VERO CABRERA, PT PHYSICAL THERAPY / HAND THERAPY [address] [place] [address] 03/07/2021 09:01:24 03/07/2021 10:16:40 Iliotibial band friction syndrome 293935141 M76.31 History of orthopedic surgery 7326788073 9101 Z98.890 Pain of ri ght hip joint 3434068826 28568 M25.551 Stiffness of joint of right hip 4945654589 11513 M25.267 [id number] VERO CABRERA, PT PHYSICAL THERAPY / [facility]APY [facility] [address] [place] [address] [place] [address] 03/21/2021 09:01:06 03/21/2021 10:49:01 Iliotibial band friction syndrome 503628229 M76.31 History of orthopedic surgery 5612781338 9101 Z98.890 Pain of ri ght hip joint 8766119996 22880 M25.551 Stiffness of joint of right hip 9720761905 M25.397 [id number] FREDDIE CAMPBELL MD ORTHOPEDI CS [facility] [address] [place] [address] 03/24/2021 09:57:02 03/24/2021 12:46:48 Postoperative care 878503814 Z48.89 Assessment : 3 months status post [...] needed. Patellofem oral syndrome of right knee 6497621857 392591 M22.2X1 [id number] CHRISTINE SAMANIEGO APRN GASTRO [address] [facility], [address] [place] [address] 07/17/2021 13:19:01 07/17/2021 15:06:01 Diarrhea 21172219 R19.7 Urea breath testingLAb s, stools, rule out infectious , inflammato ry diseaseAvo id NSAIDS, ASA products. Tylenol okay, follow dosing on bottle.Sma ll, frequent meals, avoid greasy, spicy foods. Benton diet.Follo w up 6 weeks. Call for any questions or concerns. patient and mother verbalized understand ing. Right lowe r quadrant pain 718021073 R10.31 Nausea 929649213 R11.0 [id number] CHRISTINE SAMANIEGO APRN GASTRO [address] [facility], [address] [place] [address] 07/22/2021 10:29:14 07/22/2021 12:02:30 Nausea 162231053 R11.0 [id number] FREDDIE CAMPBELL MD ORTHOPEDI CS [facility] [address] [place] [address] 02/02/2022 11:26:17 02/02/2022 11:59:18 Greater trochanteric pain syndrome of right lower limb 8014388179 8503277 M70.61 Assessment : Trochanter ic bursitis with [...] recurrence . Physical therapy was prescribed today. [id number] CHRISTINE SAMANIEGO APRN GASTRO [address] [facility], [address] [address] 02/02/2022 13:47:24 02/24/2022 13:04:02 Right lower quadrant pain 596227075 R10.31 Diarrhea 45038879 R19.7 Urea breath testingLAb s, stools, rule out infectious , inflammato ry diseaseAvo id NSAIDS, ASA products. Tylenol okay, follow dosing on bottle.Sma ll, frequent meals, avoid greasy, spicy foods. Benton diet.Follo w up 6 weeks. Call for any questions or concerns. patient and mother verbalized understand ing. [id number] WILEY CUMMINGS MD GASTRO [address] [facility], [address] [place] [address] 03/01/2023 15:31:19 03/01/2023 16:18:29 Right lower quadrant pain 498926302 R10.31 Will arrange ileocolono scopy, obtain crp and esr. I have asked her to try to use dicyclomin e 1-2 times per day since symptom has been daily more recentlyWe also discussed possibilit y for abdominal wall painObtain CT scan and labs from recent ER visit this month [id number] WILEY CUMMINGS MD SURGERY SCHEDULE [address] [place] [address] 03/12/2023 08:01:30 03/12/2023 08:02:17 Abdominal pain 77402507 R10.9 [id number] WILEY CUMMINGS MD GASTRO [address] [facility], [address] [place] [address] 04/14/2023 15:00:34 04/14/2023 16:16:46 Abdominal pain 22659955 R10.9 Stop dicyclomin e and start levsin 0.125 mg 2-3 times per dayWill arrange small bowel capsule studyIf no improvemen t with levsin, then stat low dose elavil if tolerated with her daily prozac useConside r referral for PT [id number] WILEY CUMMINGS MD GASTRO [address] [facility], [facility] [address] [place] [address] 05/06/2023 07:57:21 05/06/2023 11:23:29 [id number] KRYSTLE MARINO [facility] [address] [place] [address] 06/10/2023 10:30:42 06/10/2023 11:12:26 Pain in pelvis 25843046 R10.2 urine dip with blood - will [...] dose slightly of COCalso discussed referral to [facility]/MD for further evaluation - mother and patient concerned that pain is related to endometrio sis. [id number] KRYSTLE MARINO [address] [place] [address] 06/28/2023 08:24:01 06/28/2023 09:44:54 Pain in pelvis 99302049 R10.2 Discussed today's preliminar y ultrasound which is normal. No obvious reason for patient's pelvic pain.patie nt concerned that pain is related to endometrio sis.will refer patient to [facility] for further evaluation . [id number] DO JOHN SCHUSTER [facility] [address] [place] [address] 07/07/2023 14:49:57 07/07/2023 15:32:39 Pain in pelvis 49147119 R10.2 given extensive negative work up with ongoing symptoms in the setting of menorrhagi a and dysmenorrh ea and a fhx of endometrio sis we discussed moving forward with more invasive work up with dx scope. patient agrees and she is ready for next steps. r/b/a discussed. patient getting in august, desires surgery in july if possible. will continue felipe for now Menorrhagia 307132502 N9 2.0 discussed in the future could explore cutting to 10mcg lo loestrin to see if pain improves. Dysmenorrhea 752924368 N 94.6 decently controlled with felipe [id number] EMEKA GARCIA DO SURGERY SCHEDULE [address] [place] [address] 07/30/2023 06:28:34 07/30/2023 06:29:15 Pain in pelvis 40289707 R10.2 given extensive negative work up with [...] s/p dx scope and bx x2 Menorrhagia 345741407 N9 2.0 discussed in the future could explore cutting to 10mcg lo loestrin to see if pain improves. Dysmenorrhea 703927182 N 94.6 decently controlled with felipe [id number] DO JOHN SCHUSTER [address] [place] [address] 08/13/2023 15:02:55 08/13/2023 15:23:43 Pain in pelvis 05044169 R10.2 given extensive negative work up with [...] pain resolved after surgery. continue felipe. Menorrhagia 453746784 N9 2.0 stable on felipe Dysmenorrhea 257129945 N 94.6 decently controlled with felipe, rx sent Postoperative pain 09810 9007 G89.18 patient is recovering appropriat douglas incisions are healing appropriat douglas call precaution s reviewed reviewed path endo schedule annual [id number] DO JOHN SCHUSTER [address] [place] [address] 12/22/2023 08:47:19 12/22/2023 09:46:43 Pain in pelvis 54173790 R10.2 given extensive negative work up with [...] in 3 months. call sooner if needed [id number] DO JOHN SCHUSTER [facility] [address] [place] [address] 03/24/2024 14:42:16 03/25/2024 04:10:41 Pain in pelvis 34649251 R10.2 given extensive negative work up with [...] f/u in 3 months. call sooner if [email or web address]/1 09/30 currently on felipe. continue until starting to try then dc. Family zander nning surveillance 959169891 Z30.09 hand out reviewed and discussed/ questions answeredpl ans to stop felipe soon and start trying [email or web address] Endometrio sis of pelvis 56081087 N80.9 discussed possible pain management referral for [...] ID Guarantor Name 03/27/2024 1 [employer] [id number] Carlos Sahu [id number] 1 Kassie Sahu 02/12/2023 1 [employer] [place]MEDICA[place]AC[place] - H[place] [id number] Kassie Sahu [id number] Kassie Sahu 12/22/2023 2 [employer] [place]AC[place] - [place]) [id number] Kassie Sahu [id number] 2 Kassie Sahu 02/12/2023 2 [employer] [id number] Kassie Sahu [id number] 1 Kassie Sahu 06/10/2023 1 [employer] [id number] Carlos Sahu [id number] 1 Kassie Sahu Notes Date Note Type [...] odor, or itching. EMEKA GARCIA DO [address] [place], [address], [facility] 07/07/2023 16:19:15 08/13/2023 text/html patient is [...] is gone EMEKA GARCIA DO [address] [place], [address], [facility] 08/13/2023 15:47:07 12/22/2023 text/html patient in [...] odor, or itching. EMEKA GARCIA DO [address] [place], [address], [facility] 12/22/2023 09:31:17 03/24/2024 text/html patient in [...] or itching. EMEKA GARCIA DO [address], [place], [address], [facility] 03/24/2024 16:18:06 OBGyn Episode No OBEpisode recorded.
--- NOTE | 2024-11-29 21:11 | ED_ITS ---
Discharge Plan Disposition Patient Disposition: Home, Self-Care Condition: Good Prescriptions Prescriptions: No Action levothyroxine 112 mcg tablet PO One A Day Women's DHA 28 mg iron- 800 mcg combo pack PO Referrals Follow up/Referrals: Provider,Referral, [Referring, Medical] - See instructions Activity Restrictions/Add. Instructions Additional Instructions/Restrictions: You can wear compression stockings at home to help with the swelling in your legs. Continue to monitor your symptoms at home, follow-up with OB if your symptoms do not improve in 1 week. Return to the emergency department for any acute or worsening symptoms. Clinical Impressions Clinical Impression: Exertional shortness of breath Print Language Print Language: Greek Discharge ED Provider: Gayle Wagner Adult HPI General Chief complaint: Chest Pain Stated complaint: Chest Pain Time Seen by Provider: 11/29/24 21:07 Mode of Arrival: Ambulatory Source of Information: Patient Description of Symptoms (Recalled from ER Triage Doc. by RN): pt reports she was at work tonight and began having chest pressure in the center of her chest, pain does not radiate but is also having shortness of breath. pt reports she had a similar episode and it resolved but followed up with her OB who instructed that she needed to come to the ED if another episode occured History of Present Illness HPI narrative: Patient is an otherwise healthy 19-year-old female who is 20 weeks 6 weeks who presented to the emergency department with chest pain and shortness of breath. Patient states that her symptoms began tonight while she was at work. Patient states that she is feeling short of breath at rest and with exertion. Patient has had some swelling in her lower extremities. Patient states that this is her first . Patient states this has happened once before and it resolved on its own. Patient denies any abdominal pain nausea vomiting or diarrhea. Patient denies any vaginal bleeding. Patient states that she has not had an otherwise healthy no acute concerns. Related Data Home Medications ?Medication ?Instructions ?Recorded ?Confirmed vits 75-iron 28 mg-folic pkg PO 08/01/2411/07 acid 800 mcg-omega-3 oral combo pack (One A Day Women's DHA) levothyroxine 112 mcg tablet mcg PO 10/24/24 11/23/24 Allergies Allergy/AdvReac Type Severity Reaction Status Date / Time cefdinir (From Omnicef) Allergy Mild hives Verified 11/23/24 12:53 [facility] Disclaimer: The information contained in this section may have been updated after the patient was seen, as this information can be updated by other users. Medical History History of anxiety History of depression Hx of endometriosis Surgical History Hx of hand surgery Hx of laparoscopy History of hip surgery History of tonsillectomy and adenoidectomy Social History Smoking Status: Former smoker alcohol intake: never current occupational status: employed Travel in the last 8 weeks?: None Have you lived/traveled outside US in past 30 days?: No Contact w/someone who lives/traveled outside US past 30 days?: No Exposure to someone with infectious disease in past 14 days?: No Do you have a fever (greater than 100.4 F or 38 C)?: No Have you tested positive for COVID-19?: No Exposed to someone with COVID-19 in past 14 days?: No Do you have a sore throat?: No Do you have a cough?: No Do you have any weakness?: No Do you have any diarrhea?: No Are you experiencing any unusual bleeding?: No Do you have any muscle aches/pain?: No Do you have any abdominal pain?: No Are you experiencing loss of taste or smell?: No ROS Obtained: Yes All systems reviewed & no additional complaints except as documented and Yes Systems reviewed as appropriate & no additional complaints except as documented Physical Exam General General appearance: alert and in no apparent distress Head Head exam: atraumatic, normocephalic and normal inspection Eye Eye exam: Present normal appearance, PERRL and EOMI; Absent scleral icterus ENT ENT exam: Present normal exam and normal external ear exam Neck Neck exam: Present normal inspection and full ROM Chest Chest inspection: Present normal inspection and symmetric chest wall rise Respiratory Respiratory exam: Present normal lung sounds bilaterally; Absent respiratory distress or wheezes Cardiovascular Cardiovascular exam: Present regular rate, normal rhythm and normal heart sounds Abdominal Exam Abdominal exam: Present soft and distention; Absent tenderness, guarding or rebound Extremities Exam Extremities exam: Present normal inspection and full ROM Back Exam Back exam: Present normal inspection and full ROM Neurological Exam Neurological exam: Present alert and oriented X3 Psychiatric Psychiatric exam: Present normal affect and normal mood Skin Skin exam: Present warm and dry Medical Decision Making Medical Records Medical records reviewed: Yes I reviewed the patient's medical records. Screening: Per USPSTF and CDC recommendations, given the prevalence of disease in our region, it is our hospital?s policy to screen for HIV and viral Hepatitis for all patients aged 18 and over and those with ongoing risk factors. [employer] In[employer] Pt receiving controlled substance: No Vital Signs: 11/29/24 21:00 11/29/24 21:04 11/29/24 21:30 Temperature 98.4 F Temperature Source Oral Pulse Rate 86 Pulse Rate [Right] 93 H Respiratory Rate 17 22 17 Blood Pressure 131/89 134/88 Blood Pressure [Right Arm] 148/93 H Blood Pressure Mean Blood Pressure Mean [Right Arm] 111 Blood Pressure Position 02 Sat by Pulse Oximetry 99 100 99 Oxygen Delivery Method Room Air Room Air Room Air 11/29/24 22:00 11/29/24 23:06 Temperature 98.1 F Temperature Source Oral Pulse Rate 90 88 Pulse Rate [Right] Respiratory Rate 21 18 Blood Pressure 129/84 143/92 H Blood Pressure [Right Arm] Blood Pressure Mean 97 Blood Pressure Mean [Right Arm] Blood Pressure Position Sitting 02 Sat by Pulse Oximetry 100 Oxygen Delivery Method Room Air Lab Data Lab results reviewed: Yes I reviewed the patient's lab results. Lab Results 11/29/24 20:59: WBC 13.8 H, RBC 3.77 L, Hgb 11.2 L, Hct 33.2 L, MCV 88.1, MCH 29.7, MCHC 33.7, RDW 12.2, Plt Count 268, MPV 11.0 H, Neut % (Auto) 79.5, Lymph % (Auto) 13.1, [place] % (Auto) 6.0, Eos % (Auto) 0.7, Baso % (Auto) 0.3, Neut # (Auto) 11.0 H, Lymph # (Auto) 1.8, [place] # (Auto) 0.8, Eos # (Auto) 0.1, Baso # (Auto) 0.0, D-Dimer 0.91 H, Sodium 137, Potassium 3.5, Chloride 106, Carbon Dioxide 23, Anion Gap 11.5, BUN 7, Creatinine 0.70, Estimated Creat Clear 164, Estimated GFR 106, Est GFR ( Amer) 128, Glucose 86, Calcium 10.2, Total Bilirubin 0.6, AST 44 H, ALT 35, Alkaline Phosphatase 71, Troponin I < 0.01, NT-Pro-B Natriuret Pep 75.6, Total Protein 7.1, Albumin 4.1, Globulin 3.0, Albumin/Globulin Ratio 1.4 11/29/24 21:46: Urine Color Yellow, Urine Appearance Clear, Urine pH 6.0, Ur Specific [place] 1.015, Urine Protein Negative, Urine Glucose (UA) Negative, Urine Ketones Negative, Urine Blood Negative, Urine Nitrate Negative, Urine Bilirubin Negative, Urine Urobilinogen 0.2, Ur Leukocyte Esterase Trace, Urine RBC 3-5, Urine WBC 5-10, Ur Squamous Epith Cells 5-10, Urine Bacteria 4+ 11/29/24 20:59 11/29/24 20:59 Orders (Tests/Meds): ORDERS Category Date Time Status CXR 2 view (NOT portable) [XR chest 2V] Stat Exams 11/29/24 21:19 Completed POCUS Point of Care (ER Only) Stat Exams 11/29/24 22:15 Completed BNP [NT Pro Brain Natriuretic Pep.] Stat Lab 11/29/24 20:59 Completed CBC w/Auto Diff [Complete Blood Count Auto Diff] Stat Lab 11/29/24 20:59 Completed CMP [Comprehensive Metabolic Panel] Stat Lab 11/29/24 20:59 Completed D-Dimer Stat Lab 11/29/24 20:59 Completed Trop I [Troponin I] Stat Lab 11/29/24 20:59 Completed UA [Urinalysis and Microscopic] Stat Lab 11/29/24 21:46 Completed Urine Culture Stat Micro 11/29/24 21:46 Received Medical Decision Narrative: Patient is an otherwise healthy 19-year-old female who presented to the emergency department with chest pain and shortness of breath. On arrival, patient was hemodynamically stable with unremarkable vital signs except her patient was mildly tachycardic. Differential includes but not limited to ACS/CA, pneumothorax, pleural effusion, dyspnea in , pulmonary embolism, pneumonia, amongst others.Labs reviewed and interpreted by myself, patient showed mild leukocytosis, hemoglobin was stable. Patient CMP was unremarkable. Chest x-ray was obtained which was reviewed and interpreted by myself and showed no acute for consolidation, pneumothorax, pleural effusion or other acute cardiopulmonary process. D-dimer was elevated at 0.91. I had an interactive discussion with PAPER MACHINE BACK TENDER and given that patient is able to be uterus doubt for for pulmonary embolism, I did not pursue CT imaging at this time. OB stated that patient has been tachycardic in clinic on several visits. Patient's symptoms likely related to dyspnea in at this time. Patient was discharged home in stable condition given that her troponin was less than 0.01 EKG showed tachycardia without acute ST or T wave changes concerning for ischemia. Patient was otherwise discharged home in stable condition return precautions were discussed and patient was advised to follow-up with OB. Critical Care Critical Care Time Critical Care Time: No
--- NOTE | 2024-11-29 21:19 | XR_ITS ---
PROCEDURE INFORMATION: Exam: XR Chest Exam date and time: 11/29/2024 9:40 PM Age: 19 years old Clinical indication: Shortness of breath; Other: Chest pain TECHNIQUE: Imaging protocol: Radiologic exam of the chest. Views: 2 views. COMPARISON: No relevant prior studies available. FINDINGS: Lungs: Unremarkable. No consolidation. Pleural spaces: Unremarkable. No pleural effusion. No pneumothorax. Heart/Mediastinum: Unremarkable. No cardiomegaly. Bones/joints: Unremarkable. IMPRESSION: No acute findings.
[2024-11-29 21:26] LABS: Hematocrit 33.2 % (37.0-47.0); Hemoglobin 11.2 g/dL (12.2-16.2); Immature Granulocytes % 0.4 %; Mean Corpuscular HGB Conc 33.7 g/dL (31.8-35.4); Mean Corpuscular Hemoglobin 29.7 pg (27.0-31.2); Mean Corpuscular Volume 88.1 fl (81-99); Nucleated Red Blood Cells % 0 %; Platelet Count 268 K/mm3 (142-424); Red Blood Count 3.77 M/mm3 (4.20-5.40); Red Cell Distribution Width-SD 39.0 fL; White Blood Count 13.8 K/mm3 (4.8-10.8)
[2024-11-29 21:30] VITALS: BP 134/88; PULSE 86; RESP 17; O2SAT 99
[2024-11-29 21:33] LABS: Alanine Aminotransferase 35 U/L (12-78); Albumin Level 4.1 g/dl (3.5-5.0); Albumin/Globulin Ratio 1.4 (1.1-1.8); Alkaline Phosphatase 71 U/L (38-126); Anion Gap 11.5 mEq/L (5-15); Aspartate Amino Transferase 44 U/L (14-36); Bilirubin,Total 0.6 mg/dl (0.2-1.3); Blood Urea Nitrogen 7 mg/dl (7-17); Calcium 10.2 mg/dl (8.4-10.2); Carbon Dioxide 23 mmol/L (22.0-30.0); Chloride 106 mmol/L (98-107); Creatinine Clearance Estimated 164 mL/min (50-200); Creatinine,Serum 0.70 mg/dl (0.52-1.04); Estimated Glomerular Filt Rate 106 ml/min (>60); GFR (African American) 128 ML/MIN (>60); Globulin 3.0 g/dL (1.3-3.2); Glucose 86 mg/dl (74-100); Potassium 3.5 mmoL/L (3.5-5.1); Sodium 137 mmol/L (136-145); Total Protein,Serum 7.1 g/dl (6.3-8.2)
[2024-11-29 21:39] LABS: D-Dimer 0.91 ug/mL (0.0-0.5)
[2024-11-29 21:45] LABS: NT Pro Brain Natriuretic Pep. 75.6 pg/mL (0-125); Troponin I < 0.01 ng/ml (0.00-0.034)
[2024-11-29 21:58] LABS: Microscopic, Urine URINE MICROSCOPIC (MICROSCOPIC)
[2024-11-29 21:59] LABS: Bilirubin,Urine Negative (Negative); Color,Urine YELLOW (Yellow); Glucose,Urine (UA) Negative (Negative); Ketones,Urine Negative (Negative); Leukocyte Esterase,Urine TRACE (Negative); PH,Urine 6.0 (5.0-8.5); Protein,Urine Negative (Negative); Specific Gravity, Urine 1.015 (1.005-1.030); Urobilinogen,Urine 0.2 EU/dl (0.2)
[2024-11-29 22:00] VITALS: BP 129/84; PULSE 90; RESP 21; O2SAT 100
[2024-11-29 22:41] LABS: Bacteria,Urine 4+ /lpf
[2024-11-29 23:06] VITALS: BP 143/92; PULSE 88; RESP 18; TEMP 36.7; O2SAT 99
--- NOTE | 2024-12-02 08:54 | PC.NURSE ---
Urine culture results reviewed by Dr. Ratliff. No new orders received.
== END 2024-11-29 23:09 | disposition home or self-care (01) ==
PROVIDERS: Emergency Provider Student in an Organized Health Care Education/Training Program; PCP Nurse Practitioner Family
DX: O26.892 Other specified pregnancy related conditions, second trimester (principal); R06.02 Shortness of breath; R07.89 Other chest pain; R00.0 Tachycardia, unspecified; Z3A.20 20 weeks gestation of pregnancy
CPT/HCPCS: 71046; 80053; 81001; 83880; 84484; 85025; 85378; 87086; 93005; 99285

== ENCOUNTER 2024-12-15 08:48 | Outpatient (CLI) | payer BC, SELFPAY ==
[2024-12-15 10:04] LABS: Hematocrit 30.0 % (37.0-47.0); Hemoglobin 9.8 g/dL (12.2-16.2); Immature Granulocytes % 0.5 %; Mean Corpuscular HGB Conc 32.7 g/dL (31.8-35.4); Mean Corpuscular Hemoglobin 28.9 pg (27.0-31.2); Mean Corpuscular Volume 88.5 fl (81-99); Nucleated Red Blood Cells % 0 %; Platelet Count 226 K/mm3 (142-424); Red Blood Count 3.39 M/mm3 (4.20-5.40); Red Cell Distribution Width-SD 39.9 fL; White Blood Count 11.9 K/mm3 (4.8-10.8)
[2024-12-15 10:12] LABS: Glucose 1 Hour 129 mg/dL (74-100)
[2024-12-15 14:31] LABS: RPR W/RFX Titers Nonreactive (Nonreactive)
[2024-12-16 06:28] LABS: Ferritin 6.68 ng/ml (6.24-137)
== END 2024-12-15 23:59 | disposition home or self-care (01) ==
PROVIDERS: Obstetrics & Gynecology; PCP Nurse Practitioner Family; Visit Provider Obstetrics & Gynecology
DX: Z34.82 Encounter for supervision of other normal pregnancy, second trimester (principal); E61.1 Iron deficiency; R79.89 Other specified abnormal findings of blood chemistry
CPT/HCPCS: 36415; 82728; 82947; 85025; 86592

== ENCOUNTER 2024-12-20 10:34 | Outpatient (CLI) | payer BC, SELFPAY ==
--- NOTE | 2024-12-20 11:00 | US_ITS ---
PROCEDURE: US OB FOLLOW UP CLINICAL INDICATION: LGA COMPARISON: US US OB <= 14 WEEKS FETUS from 08/15/2024 US US OB /MATERNAL DETAIL from 10/26/2024 FINDINGS: Transabdominal sonographic images of the pelvis were obtained. The following parameters are obtained: From her established due date she is 28weeks 4days Viable fetus in the cephalic presentation with an anterior placenta grade 1. The cervix measures 3.21 cm. heart rate: 135bpm bpm. Estimated weight 1484 grams, 3 lb 4 oz Average ultrasound age 30 weeks 1 day BPD: 30weeks 6days, 93 percentile HC: 30weeks 4days, 77 percent AC: 30weeks 5days, 93 percentile FL: 28weeks 3days, 30 percent HC/AC: 1.05 FL/BPD: 0.7 FL/AC: 0.2 Growth percentile: 86 Amniotic fluid: Subjectively appears normal. No obvious anomalies evident. profile seen, stomach, bladder, kidneys, three-vessel cord, four chamber heart appear normal. IMPRESSION: 1. Viable fetus in cephalic presentation with an anterior placenta grade 1. 2. The fluid is within normal limits. 3. Fetus has shown good interval growth with the fetus currently at the 86th percentile. head and abdominal circumference are 2 weeks ahead. Suggest continued follow-up for accelerated growth. 4. Limited anatomical scan appears normal. Dictated by: Paul Gao MD 12/20/2024 11:22 Paul Gao MD in [facility] 12/20/2024 11:22
== END 2024-12-20 23:59 | disposition home or self-care (01) ==
LOC: RAD 10:35
PROVIDERS: PCP Nurse Practitioner Family; Visit Provider Obstetrics & Gynecology
DX: O36.63X0 Maternal care for excessive fetal growth, third trimester, not applicable or unspecified (principal); O99.283 Endocrine, nutritional and metabolic diseases complicating pregnancy, third trimester; O21.9 Vomiting of pregnancy, unspecified; E03.9 Hypothyroidism, unspecified; R79.89 Other specified abnormal findings of blood chemistry; Z3A.28 28 weeks gestation of pregnancy; Z86.59 Personal history of other mental and behavioral disorders
CPT/HCPCS: 76816

== ENCOUNTER 2025-01-11 08:54 | Outpatient (CLI) | payer BC, SELFPAY ==
[2025-01-11 09:12] LABS: Hematocrit 34.9 % (37.0-47.0); Hemoglobin 11.5 g/dL (12.2-16.2); Immature Granulocytes % 0.4 %; Mean Corpuscular HGB Conc 33.0 g/dL (31.8-35.4); Mean Corpuscular Hemoglobin 29.2 pg (27.0-31.2); Mean Corpuscular Volume 88.6 fl (81-99); Nucleated Red Blood Cells % 0 %; Platelet Count 181 K/mm3 (142-424); Red Blood Count 3.94 M/mm3 (4.20-5.40); Red Cell Distribution Width-SD 47.0 fL; White Blood Count 9.6 K/mm3 (4.8-10.8)
[2025-01-11 12:00] LABS: Thyroid Stimulating Hormone 3.99 uIU/mL (0.465-4.68)
== END 2025-01-11 23:59 | disposition home or self-care (01) ==
LOC: LAB 08:55
PROVIDERS: PCP Nurse Practitioner Family; Visit Provider Obstetrics & Gynecology
DX: O99.280 Endocrine, nutritional and metabolic diseases complicating pregnancy, unspecified trimester (principal); D64.9 Anemia, unspecified; R79.0 Abnormal level of blood mineral; E03.9 Hypothyroidism, unspecified; Z3A.00 Weeks of gestation of pregnancy not specified
CPT/HCPCS: 36415; 84443; 85025

== ENCOUNTER 2025-01-18 07:51 | Outpatient (CLI) | payer BC, SELFPAY ==
--- NOTE | 2025-01-18 08:00 | US_ITS ---
PROCEDURE: US OB FOLLOW UP CLINICAL INDICATION: repeat growth u/s COMPARISON: US US OB <= 14 WEEKS FETUS from 08/15/2024 US US OB /MATERNAL DETAIL from 10/26/2024 US OB FOLLOW UP from 12/20/2024 FINDINGS: Transabdominal sonographic images of the pelvis were obtained. The following parameters are obtained: From her established due date she is 32weeks 5days Viable fetus in the cephalic presentation with an anterior placenta grade 1. The cervix measures 4.26 cm heart rate: 133bpm bpm. Average ultrasound age 34 weeks 5 days Estimated weight 2,416 grams, 5 lb 5 oz BPD: 35weeks 3days, 97 percentile HC: 35weeks 3days, 81 percentile AC: 34weeks 5days, 93 percentile FL: 33weeks 2days, 53 percentile HC/AC: 1.03 FL/BPD: 0.73 FL/AC: 0.21 Growth percentile: 88 Amniotic fluid index: 17.28cm, MVP 6.21 cm No obvious anomalies evident. profile seen, stomach, bladder, kidneys, three-vessel cord, four chamber heart appear normal. IMPRESSION: 1. Viable fetus in the cephalic presentation with an anterior placenta grade 2. 2. The fluid is within normal limits with an amniotic fluid index 17.28 cm, MVP 6.21 cm. 3. There has been good interval growth with the fetus currently 88th percentile. The abdominal circumference is 2 weeks ahead. Last ultrasound at 28 weeks the fetus was 86th percentile and showed the abdominal circumference 2 weeks ahead. 4. Limited anatomical scan appears normal. 5. Suggest repeat growth at 36 weeks. Dictated by: Paul Gao MD 01/19/2025 08:35 Paul Gao MD in [facility] 01/19/2025 08:35
== END 2025-01-18 23:59 | disposition home or self-care (01) ==
LOC: RAD 07:51
PROVIDERS: PCP Nurse Practitioner Family; Visit Provider Obstetrics & Gynecology
DX: O99.283 Endocrine, nutritional and metabolic diseases complicating pregnancy, third trimester (principal); E03.9 Hypothyroidism, unspecified; Z3A.32 32 weeks gestation of pregnancy
CPT/HCPCS: 76816

== ENCOUNTER 2025-02-05 18:08 | Outpatient (CLI) | payer BC, SELFPAY ==
[2025-02-05 18:30] VITALS: BMI 31.7
[2025-02-05 18:35] LABS: Microscopic, Urine URINE MICROSCOPIC (MICROSCOPIC)
[2025-02-05 18:37] LABS: Bilirubin,Urine Negative (Negative); Color,Urine YELLOW (Yellow); Glucose,Urine (UA) Negative (Negative); Ketones,Urine TRACE (Negative); Leukocyte Esterase,Urine 1+ (Negative); PH,Urine 6.0 (5.0-8.5); Protein,Urine Negative (Negative); Specific Gravity, Urine 1.010 (1.005-1.030); Urobilinogen,Urine 0.2 EU/dl (0.2)
[2025-02-05 19:20] VITALS: BP 143/89; PULSE 104; RESP 17; TEMP 36.9; O2SAT 97; BMI 31.7
[2025-02-05] MEDS: LACTATED RINGERS 1000ML 1,000 ML 999 ML IV (19:30)
[2025-02-05] MEDS: ACETAMINOPHEN 500MG TAB 1000 MG PO (19:33)
[2025-02-05 19:35] VITALS: BP 129/78
[2025-02-05 19:54] LABS: Bacteria,Urine 3+ /lpf
[2025-02-05 20:18] VITALS: BP 148/84
[2025-02-05 20:57] VITALS: BP 144/77
[2025-02-05 21:30] LABS: Hematocrit 33.4 % (37.0-47.0); Hemoglobin 11.3 g/dL (12.2-16.2); Immature Granulocytes % 0.3 %; Mean Corpuscular HGB Conc 33.8 g/dL (31.8-35.4); Mean Corpuscular Hemoglobin 28.5 pg (27.0-31.2); Mean Corpuscular Volume 84.3 fl (81-99); Nucleated Red Blood Cells % 0 %; Platelet Count 176 K/mm3 (142-424); Red Blood Count 3.96 M/mm3 (4.20-5.40); Red Cell Distribution Width-SD 43.3 fL; White Blood Count 12.4 K/mm3 (4.8-10.8)
[2025-02-05 21:56] LABS: Alanine Aminotransferase 23 U/L (12-78); Albumin Level 3.5 g/dl (3.5-5.0); Albumin/Globulin Ratio 1.3 (1.1-1.8); Alkaline Phosphatase 98 U/L (38-126); Anion Gap 11.5 mEq/L (5-15); Aspartate Amino Transferase 38 U/L (14-36); Bilirubin,Total 0.6 mg/dl (0.2-1.3); Blood Urea Nitrogen 3 mg/dl (7-17); Calcium 9.4 mg/dl (8.4-10.2); Carbon Dioxide 19 mmol/L (22.0-30.0); Chloride 107 mmol/L (98-107); Creatinine Clearance Estimated 196 mL/min (50-200); Creatinine,Serum 0.60 mg/dl (0.52-1.04); Estimated Glomerular Filt Rate 126 ml/min (>60); GFR (African American) 153 ML/MIN (>60); Globulin 2.6 g/dL (1.3-3.2); Glucose 105 mg/dl (74-100); Potassium 3.5 mmoL/L (3.5-5.1); Sodium 134 mmol/L (136-145); Total Protein,Serum 6.1 g/dl (6.3-8.2); Uric Acid 5.0 mg/dl (2.5-6.2)
[2025-02-05 22:42] LABS: Activated Partial Thrombo Time 26.2 seconds (22.8-30.6); Fibrinogen 393 mg/dL (229.9-363.5); INR 0.97 (0.9-1.1); Prothrombin Time 10.8 seconds (10.1-12.5)
== END 2025-02-05 21:45 | disposition home or self-care (01) ==
LOC: OBOUT 18:09 → OB 18:10
PROVIDERS: PCP Nurse Practitioner Family; Visit Provider Obstetrics & Gynecology
DX: O47.03 False labor before 37 completed weeks of gestation, third trimester (principal); Z3A.35 35 weeks gestation of pregnancy
CPT/HCPCS: 59025; 80053; 81001; 82570; 84156; 84550; 85025; 85384; 85610; 85730; 87086; 96360; 99212; G0463; J7120

== ENCOUNTER 2025-02-07 09:22 | Outpatient (CLI) | payer BC, SELFPAY | END 2025-02-07 23:59 | disposition home or self-care (01) | LOC: LAB.DROPOF 02-08 10:45 | PROVIDERS: PCP Nurse Practitioner Obstetrics & Gynecology; Visit Provider Nurse Practitioner Obstetrics & Gynecology | DX: Z34.83 Encounter for supervision of other normal pregnancy, third trimester (principal) | CPT/HCPCS: 86403 ==

== ENCOUNTER 2025-02-12 07:39 | Outpatient (CLI) | payer BC, SELFPAY ==
--- NOTE | 2025-02-12 08:00 | US_ITS ---
PROCEDURE: US OB FOLLOW UP CLINICAL INDICATION: 36 week growth scan COMPARISON: US US OB <= 14 WEEKS FETUS from 08/15/2024 US US OB /MATERNAL DETAIL from 10/26/2024 US US OB FOLLOW UP from 12/20/2024 US US OB FOLLOW UP from 01/18/2025 FINDINGS: Transabdominal sonographic images of the pelvis were obtained. The following parameters are obtained: From her established due date she is 36weeks 2days Viable fetus in the cephalic presentation with an anterior placenta grade 2. There are several small placental lakes. The cervix measures 3.89 cm heart rate: heart rate activity is seen but rate is not documented. Average ultrasound age is 38 weeks 0 days Estimated weight is 3327 grams, 7 lb 5 oz BPD: 37weeks 4days, 89 percentile HC: 39weeks 1day, 85 percentile AC: 38weeks 2days, 96 percentile FL: 36weeks 4days, 50 percentile HC/AC: 0.99 FL/BPD: 0.77 FL/AC: 0.21 Growth percentile: 89 Amniotic fluid index: 17.03cm, MVP 6.64 cm No obvious anomalies evident. profile seen, stomach, bladder, kidneys, three-vessel cord, four chamber heart appear normal. IMPRESSION: 1. Viable fetus in the cephalic presentation with anterior placenta grade 2. The fetus is active. 2. The fluid is within normal limits with an amniotic fluid index 17.03 cm, MVP 6.64 cm. 3. There has been good interval growth with the fetus currently 89 percentile. There is accelerated growth and the abdominal circumference continues to be 2 weeks ahead. 4. Limited anatomical scan appears normal. Dictated by: Paul Gao MD 02/12/2025 09:46 Paul Gao MD in [facility] 02/12/2025 09:46
== END 2025-02-12 23:59 | disposition home or self-care (01) ==
LOC: RAD 07:40
PROVIDERS: PCP Nurse Practitioner Family; Visit Provider Obstetrics & Gynecology
DX: O36.63X0 Maternal care for excessive fetal growth, third trimester, not applicable or unspecified (principal); O99.283 Endocrine, nutritional and metabolic diseases complicating pregnancy, third trimester; E03.9 Hypothyroidism, unspecified; Z3A.36 36 weeks gestation of pregnancy
CPT/HCPCS: 76816

== ENCOUNTER 2025-02-13 18:48 | Outpatient (CLI) | payer BC, SELFPAY ==
[2025-02-13 19:19] VITALS: BP 132/93; PULSE 107; RESP 19; TEMP 37; O2SAT 98; BMI 29.2
[2025-02-13 19:20] VITALS: BP 125/94
[2025-02-13] MEDS: DEXTROSE 5%-LACTATED RINGERS 1,000 ML 999 ML IV (19:25)
[2025-02-13] MEDS: ACETAMINOPHEN 500MG TAB 1000 MG PO (19:26)
[2025-02-13 19:45] VITALS: BP 132/73; PULSE 87
[2025-02-13 20:00] VITALS: BP 124/80
[2025-02-13 20:15] VITALS: BP 126/79; PULSE 97
[2025-02-13] MEDS: TERBUTALINE SULFATE 1MG/ML VIAL 0.25 MG SUBCUT (20:15)
[2025-02-13 20:44] VITALS: BMI 29.2
[2025-02-13 21:24] LABS: Microscopic, Urine URINE MICROSCOPIC (MICROSCOPIC)
[2025-02-13 21:29] LABS: Bilirubin,Urine Negative (Negative); Color,Urine YELLOW (Yellow); Glucose,Urine (UA) 1+ (Negative); Ketones,Urine 1+ (Negative); Leukocyte Esterase,Urine Negative (Negative); PH,Urine 6.0 (5.0-8.5); Protein,Urine Negative (Negative); Specific Gravity, Urine <= 1.005 (1.005-1.030); Urobilinogen,Urine 0.2 EU/dl (0.2)
[2025-02-13 21:45] LABS: RBC,Urine Occasional #/hpf (0-3)
[2025-02-13 21:46] LABS: Bacteria,Urine Trace /lpf; Squamous Epithelial Cell,Urine 20-50 #/hpf (0-5)
== END 2025-02-13 21:15 | disposition home or self-care (01) ==
LOC: OBOUT 18:49 → OB 18:50
PROVIDERS: PCP Nurse Practitioner Family; Visit Provider Nurse Practitioner Obstetrics & Gynecology
DX: O47.03 False labor before 37 completed weeks of gestation, third trimester (principal); Z3A.36 36 weeks gestation of pregnancy
CPT/HCPCS: 59025; 81001; 96360; 96372; 99212; G0463; J3105; J7121

== ENCOUNTER 2025-02-21 23:34 | Inpatient (IN) | payer BC, SELFPAY ==
[2025-02-21 21:00] VITALS: BP 145/79; PULSE 108; RESP 16; TEMP 37.1; O2SAT 96; BMI 29.6
[2025-02-21 21:08] LABS: Microscopic, Urine URINE MICROSCOPIC (MICROSCOPIC)
[2025-02-21 21:11] LABS: Bilirubin,Urine Negative (Negative); Color,Urine YELLOW (Yellow); Glucose,Urine (UA) Negative (Negative); Ketones,Urine Negative (Negative); Leukocyte Esterase,Urine Negative (Negative); PH,Urine 6.0 (5.0-8.5); Protein,Urine Negative (Negative); Specific Gravity, Urine <= 1.005 (1.005-1.030); Urobilinogen,Urine 0.2 EU/dl (0.2)
[2025-02-21 21:25] VITALS: BP 124/90; PULSE 94; RESP 16
[2025-02-21 21:40] VITALS: BP 123/89
[2025-02-21 21:58] LABS: Bacteria,Urine 2+ /lpf; Squamous Epithelial Cell,Urine 20-50 #/hpf (0-5)
[2025-02-21 22:53] VITALS: BP 147/93; RESP 16; TEMP 36.9
[2025-02-21 22:59] LABS: Hematocrit 33.1 % (37.0-47.0); Hemoglobin 11.1 g/dL (12.2-16.2); Immature Granulocytes % 0.4 %; Mean Corpuscular HGB Conc 33.5 g/dL (31.8-35.4); Mean Corpuscular Hemoglobin 28.4 pg (27.0-31.2); Mean Corpuscular Volume 84.7 fl (81-99); Nucleated Red Blood Cells % 0 %; Platelet Count 136 K/mm3 (142-424); Red Blood Count 3.91 M/mm3 (4.20-5.40); Red Cell Distribution Width-SD 44.2 fL; White Blood Count 11.4 K/mm3 (4.8-10.8)
[2025-02-21 23:07] LABS: Alanine Aminotransferase 26 U/L (12-78); Albumin Level 3.6 g/dl (3.5-5.0); Albumin/Globulin Ratio 1.3 (1.1-1.8); Alkaline Phosphatase 144 U/L (38-126); Anion Gap 15.3 mEq/L (5-15); Aspartate Amino Transferase 41 U/L (14-36); Bilirubin,Total 0.7 mg/dl (0.2-1.3); Blood Urea Nitrogen 5 mg/dl (7-17); Calcium 9.2 mg/dl (8.4-10.2); Carbon Dioxide 18 mmol/L (22.0-30.0); Chloride 106 mmol/L (98-107); Creatinine Clearance Estimated 151 mL/min (50-200); Creatinine,Serum 0.80 mg/dl (0.52-1.04); Estimated Glomerular Filt Rate 91 ml/min (>60); GFR (African American) 110 ML/MIN (>60); Globulin 2.7 g/dL (1.3-3.2); Glucose 91 mg/dl (74-100); Potassium 3.3 mmoL/L (3.5-5.1); Sodium 136 mmol/L (136-145); Total Protein,Serum 6.3 g/dl (6.3-8.2)
[2025-02-22] VITALS (9 sets, daily range): BP systolic 111–132; BP diastolic 57–89; PULSE 75–99; RESP 17–18; TEMP 36.7–37; O2SAT 98–100
[2025-02-22] MEDS: DINOPROSTONE 10MG VAG INSERT 10 MG VG (00:26)
[2025-02-22] MEDS: PROMETHAZINE HCL 25MG/ML 1ML VIAL 12.5 MG IV (03:04)
[2025-02-22] MEDS: SODIUM CHLORIDE 0.9% 25ML BAG 25 ML IV (03:05)
[2025-02-22] MEDS: BUTORPHANOL TARTRATE 1 MG/ML VIAL IV ×2 (03:05→06:17)
[2025-02-22] MEDS: ONDANSETRON 4MG/2ML VIAL 4 MG IV (08:39)
--- NOTE | 2025-02-22 10:04 | EXP.HP ---
History of Present Illness *Admission Date: 02/21/25 *Reason for visit:: Induction *History of present illness: Corinne Jones is a 19yo who presented to the delivery after several elevated blood pressures at home they were all 140/90 or greater. She denies any headaches or vision changes. While here she had 2 elevated blood pressures and was admitted for induction of labor. Endorses good movement. Denies any contractions, leakage of fluid, vaginal bleeding. On arrival the patient elected to proceed with induction of labor we have previously discussed a primary delivery. O+, antibody negative, rubella immune, hepatitis B negative, hepatitis C negative, RPR negative, HIV negative 1 hour GTT: 129 GBS negative PFSH PFSH Disclaimer: The information contained in this section may have been updated after the patient was seen, as this information can be updated by other users. Medical History LGA (large for gestational age) fetus affecting management of mother History of anxiety History of depression Hx of endometriosis Surgical History Hx of hand surgery Hx of laparoscopy History of hip surgery History of tonsillectomy and adenoidectomy Social History Smoking Status: Former smoker alcohol intake: never current occupational status: employed Travel in the last 8 weeks?: None Have you lived/traveled outside US in past 30 days?: No Contact w/someone who lives/traveled outside US past 30 days?: No Exposure to someone with infectious disease in past 14 days?: No Do you have a fever (greater than 100.4 F or 38 C)?: No Have you tested positive for COVID-19?: No Exposed to someone with COVID-19 in past 14 days?: No Do you have a sore throat?: No Do you have a cough?: No Do you have any weakness?: No Do you have any diarrhea?: No Are you experiencing any unusual bleeding?: No Do you have any muscle aches/pain?: No Do you have any abdominal pain?: No Are you experiencing loss of taste or smell?: No Other Medical History Have you received the Flu Vaccine for this season: Yes Have you received the Pneumonia Vaccine: No Review of Systems Review of Systems Review of systems (narrative): Review of Systems Constitutional: Denies fever, chills, and sweats Eyes: Denies vision change/ pain Respiratory: Denies cough and shortness of breath Cardiovascular: Denies chest pain and lightheadedness Gastrointestinal: Denies contractions or abdominal pain. Denies nausea, vomiting. Genitourinary: Denies dysuria and incontinence Musculoskeletal: Denies shoulder pain and back pain Neurological: Denies change in speech or headaches Meds Home Medications and Allergies Home Medications ?Medication ?Instructions ?Recorded ?Confirmed ?Type vits 75-iron 28 mg-folic pkg PO 08/01/24 02/20/25 History acid 800 mcg-omega-3 oral combo pack (One A Day Women's DHA) levothyroxine 112 mcg tablet mcg PO 10/24/24 02/20/25 History ferrous sulfate 325 mg (65 mg 325 mg PO DAILY #30 tabs 12/15/24 02/20/25 Rx iron) tablet cyclobenzaprine 5 mg tablet 5 mg PO Q8H #30 tabs 02/15/25 02/20/25 Rx New Prescriptions to Start Prescriptions: Allergies Allergy/AdvReac Type Severity Reaction Status Date / Time cefdinir (From Omnicef) Allergy Mild hives Verified 02/20/25 08:43 Exam Data for Last 24 hours Vital signs and Labs for Last 24 Hours: Temp Pulse Resp BP Pulse Ox O2 Del Method 98.5 F 75 16 132/89 96 Room Air 02/21/25 22:53 02/22/25 00:28 02/21/25 22:53 02/22/25 00:28 02/21/25 21:00 02/21/25 21:00 Laboratory Results - last 24 hr 02/21/25 21:00: Urine Color Yellow, Urine Appearance Clear, Urine pH 6.0, Ur Specific [place] <= 1.005, Urine Protein Negative, Urine Glucose (UA) Negative, Urine Ketones Negative, Urine Blood Negative, Urine Nitrate Negative, Urine Bilirubin Negative, Urine Urobilinogen 0.2, Ur Leukocyte Esterase Negative, Urine RBC 5-10, Urine WBC 10-20, Ur Squamous Epith Cells 20-50, Urine Bacteria 2+, Urine Creatinine 59, Urine Total Protein 10.0 02/21/25 22:32: WBC 11.4 H, RBC 3.91 L, Hgb 11.1 L, Hct 33.1 L, MCV 84.7, MCH 28.4, MCHC 33.5, RDW 14.4, Plt Count 136 L, MPV 12.9 H, Neut % (Auto) 73.9, Lymph % (Auto) 15.0, [place] % (Auto) 9.5 H, Eos % (Auto) 0.9, Baso % (Auto) 0.3, Neut # (Auto) 8.4 H, Lymph # (Auto) 1.7, [place] # (Auto) 1.1 H, Eos # (Auto) 0.1, Baso # (Auto) 0.0, Sodium 136, Potassium 3.3 L, Chloride 106, Carbon Dioxide 18 L, Anion Gap 15.3 H, BUN 5 L, Creatinine 0.80, Estimated Creat Clear 151, Estimated GFR 91, Est GFR ( Amer) 110, Glucose 91, Calcium 9.2, Total Bilirubin 0.7, AST 41 H, ALT 26, Alkaline Phosphatase 144 H, Total Protein 6.3, Albumin 3.6, Globulin 2.7, Albumin/Globulin Ratio 1.3, Blood Type O Positive, Antibody Screen Negative I & O for Last 24 hours: Intake & Output 02/19/25 02/20/25 02/21/25 02/22/25 23:59 23:59 23:59 23:59 Weight 189 lb Narrative: General: patient is alert oriented in no acute distress and responds appropriately to questions. HEENT: NCAT, EOMI, moist mucous membranes, neck supple with full ROM Cardiovascular: RRR +S1/S2, no murmurs or rubs Pulmonary: Clear to auscultation bilaterally, nonlabored breathing, symmetric chest rise Abdominal: Gravid abdomen appropriate for gestation. No guarding, rebound, or tenderness noted. Extremities: trace edema, no tenderness or cyanosis noted Skin: Normal turgor, intact, warm. Negative for erythema, pallor, petechia, or lesions Neurologic: Negative for sensory or motor deficit Psychiatric: Normal affect, normal thought process, good judgment and insight, no depression or anxious mood appreciated. *Routine HEENT Exam Head: Present normocephalic and atraumatic Eye: Present EOMI, PERRL and normal accommodation; Absent conjunctival icterus, scleral injection, nystagmus or exophthalmos ENT: Present mucous membranes moist *Routine Respiratory Exam Respiratory: Present CTA bilaterally, normal respiratory effort, able to speak in complete sentences and symmetric chest movement; Absent accessory muscle use, decreased breath sounds, rales, respiratory distress, wheezes, distant breath sounds or diminished air movement *Routine Cardiovascular Exam Cardiovascular: Present RRR, Normal S1 and Normal S2; Absent murmur or gallop *Routine Abdominal Exam Abdominal: Present soft and normoactive bowel sounds; Absent tenderness, distended, rebound or guarding *Routine Rectal Exam Rectal:: deferred *Routine Genitalia Exam Genitalia:: normal female Assessment and Plan *Assessment and plan (1) History of hip surgery: Status: Acute Category: Surgical Code(s): Z98.890 - Other specified postprocedural states (2) LGA (large for gestational age) fetus affecting management of mother: Status: Acute Qualifiers: Fetus number: single or unspecified fetus Trimester: third trimester Qualified Code(s): O36.63X0 - Maternal care for excessive growth, third trimester, not applicable or unspecified Category: Medical Code(s): O36.60X0 - Maternal care for excessive growth, unspecified trimester, not applicable or unspecified (3) : Status: Acute Qualifiers: Weeks of gestation: 35 weeks Qualified Code(s): Z3A.35 - 35 weeks gestation of Category: Medical Code(s): Z34.90 - Encounter for supervision of normal , unspecified, unspecified trimester (4) Gestational hypertension: Status: Acute Category: Medical Code(s): O13.9 - Gestational [-induced] hypertension without significant proteinuria, unspecified trimester (5) Encounter for induction of labor: Status: Acute Category: Medical Code(s): Z34.90 - Encounter for supervision of normal , unspecified, unspecified trimester Plan - Monitor vitals - Admit to L&D for induction of labor - Secondary to hip pain elected for a primary delivery. pt has a hx of hip surgery - External FHR and TOCO monitor - Exam on admission: c/t/h - GBS neg/ Blood type: O+ - Hemoglobin: 11.1, Plt: 136 - Plan for spinal anesthesia - Anticipate delivery of male infant: Beau #gestational hypertension - PIH labs collected - Follow blood pressure closely Discussed the risk of bleeding, infection injury to the surrounding structures. Patient consented to blood transfusion to medically necessary. Reviewed the rare risk of hysterectomy if bleeding is unable to be controlled. She will receive a vaginal prep. Reviewed the risk of injury to surrounding structures including the bowel, bladder, reproductive organs, and neurovascular bundles. discussed risks of VTE, anesthesia and . Discussed that if complication occurred it could prolong surgery, require additional surgeries or require transfer to a tertiary care center. discussed that i would recommend a repeat delivery, and patient agreed. Patient voiced understanding. Patient and significant other voiced understanding desire to proceed
[2025-02-22] MEDS: CLINDAMYCIN PHOSPHATE 900 MG in 0.9 % SODIUM CHLORIDE 100 ML 100 MG IV (11:53)
[2025-02-22] MEDS: LACTATED RINGERS 1000ML 1,000 ML 50 ML IV (11:53)
--- NOTE | 2025-02-22 11:54 | EXP.ANES.CKL ---
[facility] Disclaimer: The information contained in this section may have been updated after the patient was seen, as this information can be updated by other users. Medical History LGA (large for gestational age) fetus affecting management of mother History of anxiety History of depression Hx of endometriosis Surgical History Hx of hand surgery Hx of laparoscopy History of hip surgery History of tonsillectomy and adenoidectomy Social History Smoking Status: Former smoker alcohol intake: never substance use type: denies use current occupational status: employed Travel in the last 8 weeks?: None [facility] Anesthesia Checklist Patient Identification Patient Identification: Arm Band Structural Data Admitted From: Inpatient Planned Operative Procedure/s: Primary C/S Consent for Planned Operative Procedure(s) Verified: Yes Verified Documents: Surgical Consent and History and Physical NPO Status Verified Time NPO: 08:30 (grape juice) Additional verifications Anesthesia Reactions: No Airway Assessment Mallampati Score:: Class II C-Spine Mobility Assessed: Yes TMJ Mobility Assessed: Yes Dentition: Good Dentition Neurological Assessment Level of Consciousness: Awake, Alert and Appropriate Anesthesia Plan Anesthesia Risk discussed: Yes Anesthesia Plan: Verified ASA Class: II Anesthesia Type: Spinal (with Bilateral TAP block. Risks/benefits explained. Pt verbalized understanding)
[2025-02-22] MEDS: GENTAMICIN SULFATE IV (12:30)
[2025-02-22] MEDS: SODIUM CHLORIDE 0.9% IV (12:30)
[2025-02-22] MEDS: AZITHROMYCIN 500 MG in 0.9 % SODIUM CHLORIDE 250 ML 250 MG IV (13:00)
--- NOTE | 2025-02-22 13:48 | P.OP_ITS ---
Date of procedure: 02/22/25 Pre-op Diagnosis:: 1. 37 weeks 5 days gestation, [place] 2. Gestational Hypertension 3. History of hip surgery 4. Elective primary delivery 5. GBS negative 6. Rh Positive Post-op Diagnosis:: 1. 37 weeks 5 days gestation, [place] 2. Gestational Hypertension 3. History of hip surgery 4. Elective primary delivery 5. GBS negative 6. Rh Positive 7. hemorrhage Procedure performed:: Primary Delivery Surgeon:: Leila Nails DO Mill Tender Second Operator(s):: Not available SYNTHETIC GEM PRESS OPERATOR:: Jose Gusman Anesthesia: spinal Estimated blood loss (mL): 1,000 Clinical Note:: Corinne is a pleasant 19-year-old who presented to triage with elevated blood pressures and her diagnosis of gestational hypertension was confirmed. She was 37 weeks and 4 days gestation on arrival and she was admitted for induction of labor. She has a history of hip surgery and is concerned about the pain to her hip with induction. She desired a trial of labor. But this morning her hip was hurting so bad that she could not tolerate a trial of labor any longer and elected to proceed with an elective primary delivery. Risk and benefits were reviewed. Discussed the risk of placental abnormalities with each delivery and the risk of increased adhesions causing injury to the surrounding structures. Patient voiced understanding and desired to proceed with primary delivery Operative findings:: 1. Live viable male : Ok. Weight: 7pounds 12ounces. Apgars 8 and 9 at 1 and 5 minutes respectively 2. Normal-appearing fallopian tubes and ovaries bilaterally Operative note:: Medications: 5 mg/kg IV gentamicin, 900 mg IV clindamycin,, 500mg IV Azithr omycin, 1g TXA Summary: Procedure explained in its entirety. The patient was counseled on the risks and benefits of section including bleeding, vascular injury, infection, and injury to the surrounding structures. Hemorrhage requiring life saving blood transfusion resulting in blood born viral infection or allergic reaction was explained and the patient consented to blood transfusion. Possible need for further operative measures prolonging recovery time and hospitalization reviewed to include hysterectomy. Procedure explained in its entirety and patient had no further questions. Consented to procedure. The patient was taken back to the operating room where adequate spinal anesthesia was obtained. Pneumatic compression stockings applied to lower extremities. Above antibiotics were administered for infection prophylaxis. She was placed in the dorsal supine position Urinary catheter was placed and found to be draining clear urine. The patient was prepped and draped in sterile fashion. Anesthesia was tested and and found to be adequate. A Pfannenstiel skin incision was made with the scalpel. Subcutaneous bleeding vessels were cauterized with the bovie. The incision was taken down to the fascia with the bovie. The fascia was knicked in the midline and sharply extended laterally. The superior aspect of the fascia was grasped with Rama clamps and the rectus muscle was taken down with the Bovie. The rectus muscle was sharply dissected from the midline with Mayos. This process was repeated inferiorly. The rectus muscles were in the midline, peritoneum was identified and entered bluntly. Chace O retractor was placed and the bladder was noted to be out of the operative field. A bladder flap was created with Metzenbaum scissors and Nepalese pickups. The lower uterine segment was easily identified, sharply incised, and entered bluntly with the surgeon's index finger. Incision was then extended in a superior and inferior fashion by blunt separation. Membranes were ruptured revealing clear fluid. The fetus was in cephalic presentation. The head was carefully elevated out of the pelvis. Fundal pressure was applied when head was brought into in cision. The infants head was delivered without difficulty. The shoulder and body followed without complication. Delivery occurred at 1302. The mouth and nose were suctioned with a bulb. The umbilical cord was clamped and cut. was taken to warmer for evaluation by the technical delivery manager. Cord blood was collected. The placenta was delivered via fundal massage. IV Pitocin was initiated. Inside of the uterus was gently cleared of blood and clots with lap sponge. The uterus was very boggy and hemorrhage was occurring secondary to uterine atony. The hysterotomy was closed with 0 Vicryl in a running locked fashion. The uterus was still boggy and 1 g of TXA was administered. Fundal massage was completed and uterine tone was slightly improving. The lower uterine segment was still bleeding from hysterotomy site and a second #1 Vicryl was used to place an imbricating stitch. The lower uterine segment was visualized and noted to be hemostatic. The ovaries and tubes were found to be normal. The posterior aspect of the uterus was cleared of blood clot with a damp lap sponge. The vesicouterine peritoneum was oozing at the cut edge and reapproximated with 2-0 Monocryl in a running nonlocked fashion. The gutters were inspected bilaterally and cleared of blood and clots with lap sponges. The uterine incision was reinspected and hemostasis noted. Chace O retractor was removed. The peritoneum was reapproximated using a 2-0 Monocryl in a nonlocked running fashion. The fascia was closed in a running nonlocked fashion using 0 PDS. Fascia was noted as not having gaps or defects. The s ubcutaneous fat was closed with 2-0 Monocryl interrupted sutures x3. Skin was closed with the INSORB suture in a subcuticular fashion. Patient tolerated the procedure well and all counts were correct x3, per nursing. Patient will receive tap blocks and then be transported to the OB PACU for recovery and infant bonding. Condition: stable Disposition: floor Specimens:: 1. Cord blood 2. Placenta 3. Live viable male infant Complications:: None
[2025-02-22] MEDS: OXYTOCIN/RINGERS LACTATE 30 UNITS/500 ML BAG 999 UNITS IV (14:06)
[2025-02-22] MEDS: OXYCODONE 5MG IMMEDIATE RELEASE TABLET 5 MG PO ×2 (15:05→23:47)
[2025-02-22] MEDS: ACETAMINOPHEN 500MG TAB 1000 MG PO ×2 (15:06→21:10)
[2025-02-22] MEDS: LANOLIN CREAM 40GM TP (20:33)
[2025-02-22] MEDS: SIMETHICONE 80MG CHEWABLE TABLET 160 MG PO (20:34)
[2025-02-22] MEDS: SENNA 8.6MG TABLET 8.6 MG PO (20:34)
[2025-02-22] MEDS: PRENATAL MULTIVITAMIN W/IRON 1 EACH PO (20:34)
[2025-02-22] MEDS: KETOROLAC 30MG/ML VIAL 30 MG IV (21:10)
[2025-02-23] MEDS: ACETAMINOPHEN 500MG TAB 1000 MG PO ×4 (04:41→23:07)
[2025-02-23] MEDS: KETOROLAC 30MG/ML VIAL 30 MG IV (04:41)
[2025-02-23 06:10] LABS: Hematocrit 26.2 % (37.0-47.0); Hemoglobin 8.8 g/dL (12.2-16.2); Immature Granulocytes % 0.5 %; Mean Corpuscular HGB Conc 33.6 g/dL (31.8-35.4); Mean Corpuscular Hemoglobin 28.5 pg (27.0-31.2); Mean Corpuscular Volume 84.8 fl (81-99); Nucleated Red Blood Cells % 0 %; Platelet Count 216 K/mm3 (142-424); Red Blood Count 3.09 M/mm3 (4.20-5.40); Red Cell Distribution Width-SD 44.8 fL; White Blood Count 21.8 K/mm3 (4.8-10.8)
[2025-02-23 07:28] LABS: RBC Morphology Normal; Total Cells Counted 100
--- NOTE | 2025-02-23 07:31 | P.PNANES_ITS ---
[facility] Anesthesia Record Part II Anesthesia Record Part II Discharge Time: 14:30 Destination: Obstetric PACU nurse assessment reviewed?: Yes Patient Condition:: Good Anesthesia Complications:: None Swallowing reflex intact?: Yes Airway Patency: Patent Cyanosis?: No Blood Pressure: 114/68 SaO2: 98 Respiratory Rate: 18 Pulse Rate: 99 Temperature: 98.1 F Mental Status: Alert & Oriented Pain level:: 0 Nausea and/or vomitting:: None Intake, IV Amount: 0 Hydration: Adequate
[2025-02-23 07:32] VITALS: BP 114/68; PULSE 99; RESP 18; TEMP 36.7; O2SAT 98
[2025-02-23 07:56] LABS: RPR W/RFX Titers Nonreactive (Nonreactive)
--- NOTE | 2025-02-23 09:10 | P.PN_ITS ---
Subjective *Date: 02/23/25 *Time: 09:10 Interval history: Corinne Jones is a very pleasant 19-year-old G1, P1 day #1 following a primary low-transverse delivery at 37 weeks and 5 days gestation secondary to gestational hypertension. Routine delivery and course. She is doing well this morning -Reports pain is well-controlled -Reports she is tolerating p.o. without nausea or vomiting. -Reports her lochia is scant. -She is breast-feeding her male infant -Ambulating, voiding difficulty or dysuria. Denies chest pain shortness of breath or pain in her legs. No further complaints at this time. Exam Data for Last 24 hours Vital signs and Labs for Last 24 Hours: Temp Pulse Resp BP Pulse Ox O2 Del Method 98.1 F 99 H 18 114/68 98 Room Air 02/22/25 14:30 02/22/25 14:30 02/23/25 07:32 02/22/25 14:30 02/22/25 14:30 02/22/25 14:30 Laboratory Results - last 24 hr 02/21/25 22:32: RPR w/Rflx to Titer Nonreactive, Blood Type O Positive, Antibody Screen Negative, Crossmatch (AHG) See Detail 02/23/25 06:00: WBC 21.8 H* D, RBC 3.09 L, Hgb 8.8 L, Hct 26.2 L, MCV 84.8, MCH 28.5, MCHC 33.6, RDW 14.5, Plt Count 216 D, MPV 11.7 H, Neut % (Auto) 82.0 H, Lymph % (Auto) 10.1, [place] % (Auto) 7.3, Eos % (Auto) 0.0 L, Baso % (Auto) 0.1, Neut # (Auto) 17.9 H, Lymph # (Auto) 2.2, [place] # (Auto) 1.6 H, Eos # (Auto) 0.0, Baso # (Auto) 0.0, Total Counted 100, Neutrophils % (Manual) 88 H, Lymphocytes % (Manual) 8 L, Monocytes % (Manual) 4, Platelet Estimate Normal, RBC Morphology Normal I & O for Last 24 hours: Intake & Output 10/14/25 10/15/25 10/16/25 10/17/25 23:59 23:59 23:59 23:59 Intake Total 501.75 / 501.75 0 / 0 Balance 501.75 / 501.75 0 / 0 Weight 189 lb Narrative: General: patient is alert oriented in no acute distress and responds appropriately to questions. Appears to be in minimal pain. HEENT: NCAT, EOMI, moist mucous membranes, neck supple with full ROM Cardiovascular: RRR +S1/S2, no murmurs or rubs Pulmonary: Clear to auscultation bilaterally, nonlabored breathing, symmetric chest rise Abdominal: Fundus below the umbilicus, firm, and tenderness appropriate for the period. Extremities: trace edema, no tenderness or cyanosis noted Skin: Normal turgor, intact, warm. Negative for erythema, pallor, petechia, or lesions Neurologic: Negative for sensory or motor deficit Psychiatric: Normal affect, normal thought process, good judgment and insight, no depression or anxious mood appreciated. Assessment and Plan *Assessment and plan (1) History of hip surgery: Status: Acute Category: Surgical Code(s): Z98.890 - Other specified postprocedural states (2) LGA (large for gestational age) fetus affecting management of mother: Status: Acute Qualifiers: Fetus number: single or unspecified fetus Trimester: third trimester Qualified Code(s): O36.63X0 - Maternal care for excessive growth, third trimester, not applicable or unspecified Category: Medical Code(s): O36.60X0 - Maternal care for excessive growth, unspecified trimester, not applicable or unspecified (3) : Status: Acute Qualifiers: Weeks of gestation: 35 weeks Qualified Code(s): Z3A.35 - 35 weeks gestation of Category: Medical Code(s): Z34.90 - Encounter for supervision of normal , unspecified, unspecified trimester (4) Gestational hypertension: Status: Acute Category: Medical Code(s): O13.9 - Gestational [-induced] hypertension without significant proteinuria, unspecified trimester (5) Encounter for induction of labor: Status: Acute Category: Medical Code(s): Z34.90 - Encounter for supervision of normal , unspecified, unspecified trimester (6) S/P section: Status: Acute Category: Surgical Code(s): Z98.891 - History of uterine scar from previous surgery (7) Anemia: Status: Acute Category: Medical Code(s): D64.9 - Anemia, unspecified (8) Leukocytosis: Status: Acute Category: Medical Code(s): D72.829 - Elevated white blood cell count, unspecified Plan Stable. POD#1 s/p primary low-transverse delivery -Doing well. VSS. Serial lochia and fundal checks. -Continue with perineal ice packs for discomfort -Hemoglobin: 11.1--> 8.8 - asymptomatic anemia noted. Vitals stable. Continue monitoring. DC with Fe -IV iron ordered for this morning -O+/antibody negative -[Breast]feeding, male infant -Desires circumcision, peds to complete -Contraception: undecided -Follow-up 2 weeks for routine visit -Dispo: home in 1-3 days pending mother/ status # Leukocytosis #Anemia - IV iron ordered this morning - Continue to follow closely - Vital signs stable - Repeat CBC in the morning to trend leukocytosis #Gestational hypertension - Status post delivery - CMP pending - Blood pressure is well-controlled - Continue to follow closely
[2025-02-23 09:49] LABS: Albumin Level 2.8 g/dl (3.5-5.0); Chloride 106 mmol/L (98-107); Sodium 136 mmol/L (136-145)
[2025-02-23 09:50] LABS: Potassium 3.7 mmoL/L (3.5-5.1)
[2025-02-23 09:52] LABS: Alanine Aminotransferase 22 U/L (12-78); Albumin/Globulin Ratio 1.1 (1.1-1.8); Alkaline Phosphatase 89 U/L (38-126); Anion Gap 8.7 mEq/L (5-15); Aspartate Amino Transferase 37 U/L (14-36); Bilirubin,Total 0.2 mg/dl (0.2-1.3); Blood Urea Nitrogen 5 mg/dl (7-17); Carbon Dioxide 25 mmol/L (22.0-30.0); Creatinine Clearance Estimated 151 mL/min (50-200); Creatinine,Serum 0.80 mg/dl (0.52-1.04); Estimated Glomerular Filt Rate 91 ml/min (>60); GFR (African American) 110 ML/MIN (>60); Globulin 2.6 g/dL (1.3-3.2); Total Protein,Serum 5.4 g/dl (6.3-8.2)
[2025-02-23] MEDS: IRON SUCROSE COMPLEX 200 MG in 0.9 % SODIUM CHLORIDE 100 ML 220 MG IV (09:52)
[2025-02-23 09:53] LABS: Calcium 8.9 mg/dl (8.4-10.2); Glucose 82 mg/dl (74-100)
[2025-02-23] MEDS: IBUPROFEN 400 MG TABLET 800 MG PO ×2 (11:17→23:07)
[2025-02-23] MEDS: OXYCODONE 5MG IMMEDIATE RELEASE TABLET 5 MG PO ×2 (16:37→23:07)
[2025-02-23] MEDS: PRENATAL MULTIVITAMIN W/IRON 1 EACH PO (16:37)
[2025-02-24 07:59] LABS: Hematocrit 26.9 % (37.0-47.0); Hemoglobin 8.8 g/dL (12.2-16.2); Immature Granulocytes % 0.9 %; Mean Corpuscular HGB Conc 32.7 g/dL (31.8-35.4); Mean Corpuscular Hemoglobin 28.1 pg (27.0-31.2); Mean Corpuscular Volume 85.9 fl (81-99); Nucleated Red Blood Cells % 0 %; Platelet Count 181 K/mm3 (142-424); Red Blood Count 3.13 M/mm3 (4.20-5.40); Red Cell Distribution Width-SD 45.9 fL; White Blood Count 13.7 K/mm3 (4.8-10.8)
[2025-02-24] MEDS: IBUPROFEN 400 MG TABLET 800 MG PO (08:37)
[2025-02-24] MEDS: ACETAMINOPHEN 500MG TAB 1000 MG PO (08:38)
--- NOTE | 2025-02-24 13:09 | EXP.DC.SUM ---
General Admission date:: 02/21/25 Discharge date: 02/24/25 HPI HPI HPI: POD # 2 s/p PLTCS Feeling well. Pain controlled. Breast feeding. Lochia is appropriate. Voiding without difficulty and passing flatus. Tolerating regular diet. Denies fever/chills, chest pain and shortness of breath. No headaches, vision changes, lightheadedness/dizziness. Admits to lower extremity swelling. No calf pain. Ambulating well ad flora. Hospital Course Hospital Course Hospital Course: Corinne is a pleasant 19-year-old who presented to triage with elevated blood pressures and her diagnosis of gestational hypertension was confirmed. She was 37 weeks and 4 days gestation on arrival and she was admitted for induction of labor. She has a history of hip surgery and is concerned about the pain to her hip with induction. She desired a trial of labor. But this morning her hip was hurting so bad that she could not tolerate a trial of labor any longer and elected to proceed with an elective primary delivery. Risk and benefits were reviewed. Discussed the risk of placental abnormalities with each delivery and the risk of increased adhesions causing injury to the surrounding structures. Patient voiced understanding and desired to proceed with primary delivery. She underwent primary delivery on 02/22/25. She delivered a live male baby, Ok, weighing 7 lb 12 oz. Apgars 8 and 9 at 1 and 5 minutes respectively. EBL 1000 mL. She did well /postoperatively. Pain controlled. Breast feeding. Light lochia. Voiding without difficulty and passing flatus. Tolerating regular diet. Denies fever/chills, chest pain and shortness of breath. No headaches, dizziness/lightheadedness or vision changes. Vital signs stable, afebrile. Heart regular rate and rhythm. Lungs clear to auscultation. Abdomen soft, nontender. She had +3 bilateral lower extremity swelling. No calf pain. Ambulating well ad flora. POD # 1 Hgb was 8.8. Hgb was 11.1 on admission. She received Venofer 200 mg IV x 1 dose. Normal hospital course. She was discharged to home on POD # 2 with instructions to follow-up in the office in 2 weeks or sooner if needed. Exam Data for Last 24 hours Vital signs and Labs for Last 24 Hours: Temp Pulse Resp BP Pulse Ox O2 Del Method 98.1 F 99 H 18 114/68 98 Room Air 02/22/25 14:30 02/22/25 14:30 02/23/25 07:32 02/22/25 14:30 02/22/25 14:30 02/22/25 14:30 Laboratory Results - last 24 hr 02/24/25 07:30: WBC 13.7 H D, RBC 3.13 L, Hgb 8.8 L, Hct 26.9 L, MCV 85.9, MCH 28.1, MCHC 32.7, RDW 14.7, Plt Count 181, MPV 11.7 H, Neut % (Auto) 75.2, Lymph % (Auto) 16.6, [place] % (Auto) 5.9, Eos % (Auto) 1.0, Baso % (Auto) 0.4, Neut # (Auto) 10.3 H, Lymph # (Auto) 2.3, [place] # (Auto) 0.8, Eos # (Auto) 0.1, Baso # (Auto) 0.1 I & O for Last 24 hours: Intake & Output 02/21/25 02/22/25 02/23/25 02/24/25 23:59 23:59 23:59 23:59 Intake Total 501.75 / 501.75 110 / 110 Balance 501.75 / 501.75 110 / 110 Weight 189 lb Microbiology Reports for the Last 24 Hours: Microbiology 02/21/25 21:00 Urine,Clean Catch Urine Culture - Final Multiple organisms, suggests contamination. Constitutional Constitutional: no acute distress and cooperative *Routine HEENT Exam Head: Present normocephalic and atraumatic Eye: Absent conjunctivae pink ENT: Present mucous membranes moist *Routine Neck Exam Neck: Present full ROM *Routine Respiratory Exam Respiratory: Present CTA bilaterally and normal respiratory effort *Routine Cardiovascular Exam Cardiovascular: Present RRR *Routine Abdominal Exam Abdominal: Present soft; Absent tenderness or distended Comments: Pfannenstiel incision clean/dry/intact with steri strips in place *Routine Rectal Exam Patient deferred: visual exam *Routine Exam Patient deferred: external exam *Routine Extremities Exam Extremities: Present edema (+3 bilateral lower extremity edema) and full ROM; Absent calf tenderness *Routine Neurological Exam Neurological: Present alert, moving all extremities and normal speech Routine Psychiatric Exam Psychiatric: Present normal affect and cooperative Results Data Completed and Pending Labs on day of discharge: Labs from last 24 hours 02/24/25 07:30 WBC 13.7 H D RBC 3.13 L Hgb 8.8 L Hct 26.9 L MCV 85.9 MCH 28.1 MCHC 32.7 RDW 14.7 Plt Count 181 MPV 11.7 H Neut % (Auto) 75.2 Lymph % (Auto) 16.6 [place] % (Auto) 5.9 Eos % (Auto) 1.0 Baso % (Auto) 0.4 Neut # (Auto) 10.3 H Lymph # (Auto) 2.3 [place] # (Auto) 0.8 Eos # (Auto) 0.1 Baso # (Auto) 0.1 DS: Diagnosis Discharge Diagnosis (1) S/P section: Status: Acute Code(s): Z98.891 - History of uterine scar from previous surgery (2) History of hip surgery: Status: Acute Code(s): Z98.890 - Other specified postprocedural states (3) LGA (large for gestational age) fetus affecting management of mother: Status: Acute Code(s): O36.60X0 - Maternal care for excessive growth, unspecified trimester, not applicable or unspecified Qualifiers: Fetus number: single or unspecified fetus Trimester: third trimester Qualified Code(s): O36.63X0 - Maternal care for excessive growth, third trimester, not applicable or unspecified (4) : Status: Acute Code(s): Z34.90 - Encounter for supervision of normal , unspecified, unspecified trimester Qualifiers: Weeks of gestation: 35 weeks Qualified Code(s): Z3A.35 - 35 weeks gestation of (5) Gestational hypertension: Status: Acute Code(s): O13.9 - Gestational [-induced] hypertension without significant proteinuria, unspecified trimester Qualifiers: Trimester: third trimester Qualified Code(s): O13.3 - Gestational [-induced] hypertension without significant proteinuria, third trimester (6) Encounter for induction of labor: Status: Acute Code(s): Z34.90 - Encounter for supervision of normal , unspecified, unspecified trimester (7) Anemia: Status: Acute Code(s): D64.9 - Anemia, unspecified Qualifiers: Anemia type: iron deficiency Iron deficiency anemia type: other iron deficiency Qualified Code(s): D50.8 - Other iron deficiency anemias Meds Home Medications and Allergies Home Medications ?Medication ?Instructions ?Recorded ?Confirmed ?Type vits 75-iron 28 mg-folic 1 pkg PO DAILY 08/01/24 02/23/25 History acid 800 mcg-omega-3 oral combo pack (One A Day Women's DHA) levothyroxine 112 mcg tablet 112 mcg PO DAILY 10/24/24 02/23/25 History ferrous sulfate 325 mg (65 mg 325 mg PO DAILY #30 tabs 12/15/24 02/23/25 Rx iron) tablet ibuprofen 800 mg tablet 800 mg PO Q8H PRN pain #20 tabs 02/24/25 Rx oxycodone 5 mg tablet 5 mg PO Q4HP PRN Moderate Pain 02/24/25 Rx (4-6) #20 tabs New Prescriptions to Start Prescriptions: ibuprofen Canan,Miranda oxycodone Josean,Miranda Allergies Allergy/AdvReac Type Severity Reaction Status Date / Time cefdinir (From Omnicef) Allergy Mild hives Verified 02/20/25 08:43 Discharge Plan Disposition Patient Disposition: Home, Self-Care Condition: Good Discharge Order Discharge Orders: Discharge Order (Routine); Ordered 02/24/25 Ordered By: Miranda Forbes Follow up Plan Follow up with: Leila Nails DO [Staff Physician, [facility]] - 03/06/25 8:45 am Prescriptions/Medication Reconciliation: New oxycodone 5 mg Tablet 5 mg PO Q4HP PRN (Reason: Moderate Pain (4-6)) Qty: 20 0RF ibuprofen 800 mg tablet 800 mg PO Q8H PRN (Reason: pain) Qty: 20 0RF Continued levothyroxine 112 mcg tablet 112 mcg PO DAILY One A Day Women's DHA 28 mg iron- 800 mcg combo pack 1 pkg PO DAILY ferrous sulfate 325 mg (65 mg iron) tablet 325 mg PO DAILY Qty: 30 3RF Discontinued cyclobenzaprine 5 mg tablet 5 mg PO Q8H Qty: 30 0RF Problem Reconciliation Problems Reviewed?: Yes Patient Discharge Instructions ACTIVITY: Limited activity DIET: continue same diet and regular diet Additional Instructions: Discharge: 1. Take 800 mg Ibuprofen every 8 hours as needed for pain. You can also take 500-1000 mg of Tylenol in between doses, every 6-8 hours. If pain persists you can take Oxycodone 5 mg, 1 tablet every 4-6 hours or longer as needed. 2. Nothing in the vagina for 6 weeks - no intercourse, douching or tampons. No tub baths/hot tubs or swimming pools - Drink plenty of fluids. - No strenuous activity or driving until released by your doctor. - Don't lift anything heavier than your in his pumpkin seat 3. Reasons to return to L&D or call On-Call doctor - fever (greater than 100.4) - heavy vaginal bleeding (soaking through 1 pad in less than 2 hours) - vaginal discharge (malodorous and/or purulent) - severe headaches not resolved by medication or rest 4. depression/blues - Normal to feel anxious/overwhelmed for first 2 weeks - Talk to your doctor if: severe anxiety, trouble bonding with baby, withdrawing from other family members, thoughts of harming yourself or others Miranda Forbes DO [facility] [phone] Print Language: Niuean Providers Primary Care Provider: Ada Mendoza Admit Provider: Leila Nails Attending Provider: Leila Nails
== END 2025-02-24 14:30 | disposition home or self-care (01) | DRG 788 ==
LOC: OBOUT 23:36 → OB 23:36
PROVIDERS: Admitting Provider Obstetrics & Gynecology; PCP Nurse Practitioner Family; Visit Provider Obstetrics & Gynecology
PROC: 10D00Z1 Extraction of Products of Conception, Low, Open Approach (ICD-10-PCS; CPT 59514; principal; 2025-02-22 12:00)
DX: O13.4 Gestational [pregnancy-induced] hypertension without significant proteinuria, complicating childbirth (principal); Z3A.37 37 weeks gestation of pregnancy; Z37.0 Single live birth; O36.63X0 Maternal care for excessive fetal growth, third trimester, not applicable or unspecified; O90.81 Anemia of the puerperium; D50.8 Other iron deficiency anemias; O99.893 Other specified diseases and conditions complicating puerperium; D72.829 Elevated white blood cell count, unspecified; O72.1 Other immediate postpartum hemorrhage; O99.892 Other specified diseases and conditions complicating childbirth; M25.559 Pain in unspecified hip; Z98.890 Other specified postprocedural states; Z87.891 Personal history of nicotine dependence; Z79.890 Hormone replacement therapy; Z88.1 Allergy status to other antibiotic agents
CPT/HCPCS: 36415; 51702; 59025; 80053; 81001; 82570; 84156; 85007; 85025; 86592; 86850; 87086; 99212; G0463; J0456; J0595; J0665; J0666; J0736; J1100; J1580; J1756; J1885; J2003; J2371; J2405; J2550; J3010; J7050; J7120